=== PATIENT | male | born 1955 | race Caucasian/White ===

== ENCOUNTER 2019-05-28 15:08 | Inpatient (IN) | payer MEDICARE ==
[~2019-05-28] VITALS: Ht 175.2 cm; Wt 82.1 kg
[~2019-05-28 15:08] MED LIST: DULOXETINE HCL60 MG PO; LISINOPRIL40 MG PO; METOPROLOL SUCC25 M2 PO
[2019-05-28 15:23] VITALS: BP 133/84
[2019-05-28 16:19] VITALS: BP 133/84
--- NOTE | 2019-05-28 16:50 | NUR ---
SPOKE WITH DR. BOWDEN AT [phone] RE: CONSULT NEEDED FOR MEDICAL MANAGEMENT PER DR. BOWDEN PLACE CONSULT UNDER DR. FLAHERTY
--- NOTE | 2019-05-28 16:52 | NUR ---
VONDA DWYER a 63 year old M admitted via wheel chair from the EMERGENCY ROOM as a voluntary admission. Arrived on unit at 1520 ALLERGIES: NKA . Vital signs are: [id number] 133/84. The client signed the following forms with stated understanding: Authorization For The Release of Medical Information, Clothing List, Consent to Voluntary Admission and Hospitalization, Consent and Release Forms/Receipt of Rights, Acknowledgement of Advance Directive Information, Behavioral Health Consent Form, and Informed Consent of Medications. Admitted under the services of VONDA Mcdonough MD. A search was conducted and hazardous articles were removed. Client was oriented to the unit. KAREN DALAL PT ALERT TO PERSON, PLACE, TIME AND SITUATION. PT CALM, MOOD IS DEPRESSED. PT SUICIDE SCORE IS 78. DR BEAVER UPDATED AT 1618, ORDERS RECEIVED TO MAINTAIN Q15 MIN SAFETY CHECKS. NO HALLUCINATIONS OR DELUSIONS NOTED. PT AMBULATORY THROUGHOUT UNIT, GAIT STEADY. PT CONTINENT OF BOWEL AND BLADDER. PT DENIES ANY WOUNDS OR OPEN AREAS.
[2019-05-28 20:00] VITALS: BP 151/89
--- NOTE | 2019-05-28 20:47 | NUR ---
EVENING/RELAXTION/DISCUSSION PT ATTENDED AND PARTICIPATED IN ALL ACTIVITYS. PT PLEASANT AND ON TASK OPENING UP WITH PEERS AND STAFF. PT DID NTO EXPRESS ANY S.I. AT THIS TIME AND WILL CONTINUE TO ATTEND AND PARTICIPATE IN FUTURE GROUP SESSIONS.
--- NOTE | 2019-05-28 23:33 | NUR ---
24 HR chart check completed.
--- NOTE | 2019-05-29 00:03 | NUR ---
PT HAD INCREASED ANXIETY. SITTING IN HIS ROOM & CRYING. MEDICATED WITH ATIVAN 1MG PO @ 2152.
--- NOTE | 2019-05-29 05:15 | NUR ---
PT HAS SLEPT PAST 2214
[2019-05-29 06:39] LABS: BASO # 0.1 10*3/uL (0.0-0.1); BASO % 1.1 % (0.0-1.0); EOS # 0.2 10*3/uL (0.0-0.4); EOS % 3.1 % (1.0-4.0); HEMATOCRIT 44.8 % (42.0-52.0); HEMOGLOBIN 14.8 g/dl (14.0-18.0); LYMPH # 2.1 10*3/uL (1.3-4.4); LYMPH % 33.5 % (27.0-41.0); MEAN CELL VOLUME 93.7 fl (80.0-94.0); MEAN PLATELET VOLUME 9.9 fl (9.6-12.3); MONO # 0.6 10*3/uL (0.1-1.0); MONO % 9.4 % (3.0-9.0); NEUT # 3.3 10*3/uL (2.3-7.9); NEUT % 52.6 % (47.0-73.0); PLATELET COUNT AUTOMATED 236 10*3/uL (130-400); RED BLOOD COUNT 4.78 10*6/uL (4.50-5.90); RED CELL DISTRI WIDTH 12.7 % (0-14.5); WHITE BLOOD COUNT 6.2 10*3/uL (4.8-10.8)
[2019-05-29 06:58] LABS: ALBUMIN 3.5 gm/dl (3.1-4.5); ALKALINE PHOSPHATASE 95 U/L (45-117); BUN 12 mg/dl (7-24); CHLORIDE 104 mmol/L (98-107); CHOLESTEROL 198 mg/dL (<200); CREATININE 1.03 mg/dL (0.70-1.30); HDL CHOLESTEROL 34 mg/dl (40-60); LDL CHOLESTEROL 135 mg/dL (9-159); POTASSIUM 4.5 mmol/L (3.5-5.1); SGOT/AST 14 IU/L (3-35); SGPT/ALT 24 U/L (12-78); SODIUM 138 mmol/L (136-145); TOTAL PROTEIN 6.9 gm/dL (6.4-8.2); TRIGLYCERIDES 144 mg/dl (<150); VLDL CHOLESTEROL 29 mg/dL (6-40)
[2019-05-29 08:07] LABS: VITAMIN D, 25-HYDROXY 32.9 ng/mL (30-100)
--- NOTE | 2019-05-29 08:30 | NUR ---
Treatment Plan meeting with Dr. Odonnell, RN, AT, SW and Autoglazier. Plan for discharge Next week. Pt. will return home.
[2019-05-29 09:00] VITALS: BP 134/74
--- NOTE | 2019-05-29 15:05 | NUR ---
While meeting with pt to complete assessment, pt stated that he continues to have suicidal thoughts. Pt admits to struggling with thoughts of self-harm for approximately one week before reaching out for help. Pt shared that his plan is for someone other than family to find his body because pt believes that his family could heal from his suicide if they were not the ones to find him. Pt's plan is to cut his wrists. However, pt stated that he would not attempt suicide while in [facility]. Pt reports that he is motivated for treatment and knows that his thoughts of suicide are "just not right." Discussed pt's current life stressors. Validated pt and provided support.
--- NOTE | 2019-05-29 15:40 | NUR ---
PM GROUP/TEAR BOTTLES PT WAS LATE TO GROUP DUE TO A MEETING WITH MINNA. PT CHOSE NOT TO PARTICIPATE IN THE TEAR BOTTLE PROJECT AND JUST WANTED TO LISTEN TO THE MUSIC. PT STAYED A WHILE AND THEN GOT UP AND LEFT GROUP. PT DID NOT RETURN
[2019-05-29 20:02] VITALS: BP 125/72
--- NOTE | 2019-05-29 22:00 | NUR ---
PT WAS IN THE DINING ROOM & C/O CHEST PAIN & TIGHT SHOULDERS. RATED PAIN 8/10. ALSO C/O FEELING DIZZY & NAUSEATED. NO DIAPHORESIS. VITAL SIGNS STABLE. CALLED DR KHAN & HE DID COME & SEE PT & PLACED ORDERS. . PT MEDICATED WITH ATIVAN 1 MG PO @ 2014 & THIS WAS EFFECTIVE TO CALM HIM DOWN. CONTINUE TO MONITOR PT. DR KHAN STATED THAT HE WILL REVIEW HIS LABS, EKG & TROPONIN LEVELS & WILL NOTIFY OF FURTHER ORDERS IF NEEDED.
--- NOTE | 2019-05-29 22:07 | NUR ---
24 HR chart check completed.
--- NOTE | 2019-05-30 05:42 | NUR ---
ATIVAN HAS BEEN EFFECTIVE & PT HAS SLEPT PAST 2200 WITH 1 BRIEF AWAKENING TO GO TO THE BATHROOM
[2019-05-30 07:06] LABS: BASO # 0.1 10*3/uL (0.0-0.1); BASO % 0.9 % (0.0-1.0); EOS # 0.2 10*3/uL (0.0-0.4); EOS % 2.6 % (1.0-4.0); HEMATOCRIT 44.3 % (42.0-52.0); HEMOGLOBIN 14.7 g/dl (14.0-18.0); LYMPH % 28.2 % (27.0-41.0); MEAN CELL VOLUME 92.7 fl (80.0-94.0); MEAN CORPUSCULAR HGB 30.8 pg (27.0-31.0); MEAN CORPUSCULAR HGB CONC 33.2 g/dl (33.0-37.0); MEAN PLATELET VOLUME 9.9 fl (9.6-12.3); MONO # 0.6 10*3/uL (0.1-1.0); MONO % 8.9 % (3.0-9.0); NEUT # 4.2 10*3/uL (2.3-7.9); NEUT % 59.1 % (47.0-73.0); PLATELET COUNT AUTOMATED 254 10*3/uL (130-400); RED BLOOD COUNT 4.78 10*6/uL (4.50-5.90); RED CELL DISTRI WIDTH 12.6 % (0-14.5); WHITE BLOOD COUNT 7.1 10*3/uL (4.8-10.8)
[2019-05-30 07:29] LABS: BUN 15 mg/dl (7-24); CHLORIDE 104 mmol/L (98-107); CREATININE 1.11 mg/dL (0.70-1.30); POTASSIUM 4.3 mmol/L (3.5-5.1); SODIUM 139 mmol/L (136-145)
[2019-05-30 08:00] VITALS: BP 114/89
--- NOTE | 2019-05-30 08:45 | NUR ---
Patient resting quietly with no c/o discomfort. Respirations easy and regular. Vital signs stable. No overt distress. CISCO DUNCAN
--- NOTE | 2019-05-30 10:30 | NUR ---
Dr. Odonnell met with Nursing Staff this a.m. for Treatment plan meeting. Plan for discharge Monday with Pt. to return home at discharge.
--- NOTE | 2019-05-30 11:59 | NUR ---
AM GROUP/EXERCISE PT WAS PRESENT FOR MORNING GROUP THERAPY AND STARTED DOING THE EXERCISES WITH THE GROUP BUT STOPPED AND STARED OUT THE WINDOW UNTIL THE SW CAME AND TOOK PT FROM THE ROOM. PT EXPRESSED NO SUICIDAL IDEATIONS WHILE IN GROUP
--- NOTE | 2019-05-30 13:40 | NUR ---
Individual counseling with pt this AM. Pt states that he just isn't feeling well since experiencing a panic attack last evening. Pt denies any hx of panic/anxiety attacks. Pt continues to voice suicidal ideations. He stated that he actually feels worse now than before he came to [facility]. Pt stated. "If there was a way here last night that I could have ended it, I wouldn't be here today." Allowed pt to express his emotions further. Discussed that even in one's darkest times, there is something to be thankful for. Discussed the power of thankfulness/gratitude. Provided pt with a hand-out and with gratitude journal sheets. Explained about the use of a gratitude journal and encouraged pt to try this. Pt voiced that he would but then added that he finds it hard to find anything to be thankful for. Validated pt's comment and encouraged him again to spend time thinking about who/what he is thankful for even if it an insignificant thing. Pt spoke further about his suicidal thoughts. He also shared about a dream that he had where he was standing at the end of a casket and his body was in the casket. There were people sitting there as if at his and there were people standing further away that pt stated were already . When asked if pt had any emotions about this dream, pt stated, "Peace. I just felt peace." Pt stated that he has thought this through, and he knows that everyone that he loves would eventually heal from his - should he commit suicide. Gently challenged pt's thought about this, but pt continues to believe that his family will be fine without him. Discussed the "nevers" -never holding his again, never seeing his son again, etc. Pt stated, "The nevers are not strong enough to keep me here." Returned conversation to gratitude. Asked pt if he could verbalize anything that he is thankful for at this moment. Pt stated, "My , my son, and my [id number]." Reiterated to pt that he spend time thinking of anything else that he is grateful for and to write them on the journal pages. Educated pt on the process of recovering from depression. Pt also spoke of preparing to visit with his and [id number] and that pt had to "put on his face." Pt explained that he cannot show his family how he is truly feeling. Asked pt what would happen if pt didn't put on his face but allowed his family to see pt as he truly is at this time. Pt stated, "No, that will never happen. They couldn't handle this." Pt was pleasant throughout session. Pt was also tearful through most of the meeting. Pt commented that he never cries but is finding it difficult to stop crying now. Pt continues to voice suicidal ideations but states that he knows he can't take his life while in the [facility]. Pt's affect is flat. He is voicing hopelessness. However, he does want to feel better. Pt stated, "This is going to end one of two ways. I'm either going to be able to handle life again, or I'm ending it."
--- NOTE | 2019-05-30 15:38 | NUR ---
PM GROUP/PAINTING AND CARDS PT ATTENDED AND PARTICIPATED IN ALL GROUP ACTIVITIES. PT EXPRESSED NO SUICIDAL IDEATIONS WHILE IN GROUP.
[2019-05-30 20:00] VITALS: BP 128/76
--- NOTE | 2019-05-30 21:00 | NUR ---
P-ISOLATVE, WITHDRAWN I-REDIRECTION WITH 1:1 THERAPEUTIC INTERVENTION. EDUCATE AND ENCOURGE MEDICATION COMPLIANCE R-PATIENT ISOLATIVE TO ROOM THROUGHOUT SHIFT. PATIENT WITH MINIMAL INTERACTION WITH PEERS. MEDICATION COMPLIANT P-CONTINUE TO ENCOURAGE MEDICATION COMPLIANCE, ENCOURAGE GROUP THERAPY WHILE AWAKE
[2019-05-31 08:00] VITALS: BP 107/74
--- NOTE | 2019-05-31 08:38 | NUR ---
Patient resting quietly with no c/o discomfort. Respirations easy and regular. Vital signs stable. No overt distress. CISCO DUNCAN
--- NOTE | 2019-05-31 11:17 | NUR ---
DR. PIERCE ON FLOOR TO ASSESS PT, UPDATE PROVIDED.
--- NOTE | 2019-05-31 11:47 | NUR ---
AM GROUP/LEISURE INTERESTS PT ATTENDED MORNING GROUP THERAPY AND PARTICIPATED BY PLAYING CARDS WITH THE NURSING STUDENTS. PT EXPRESSED NO SUICIDAL IDEATIONS WHILE IN GROUP
--- NOTE | 2019-05-31 11:58 | NUR ---
Treatment Plan meeting with Dr. Odonnell, RN, AT, SW and Package Delivery Room Service Runner. Plan for discharge Monday. Pt. will return home.
--- NOTE | 2019-05-31 15:35 | NUR ---
Individual counseling with patient this afternoon. Pt confirmed that he continues to feel suicidal and that he is feeling hopeless. When asked, pt stated that he has spent time thinking of things that he should be grateful for but is struggling to find anything. Explored ways in which pt coped with depression and past suicidal ideations. Pt spoke of feeling totally empty. In speaking with pt, this telegraphic typewriter operator chief has heard pt speak of God and gian, although pt denies spirituality and a gian. Presented topic of spirituality to patient and patient was willing to explore this further. Pt shared further about his previous searching. Discussed the need for pt to find that one thing within himself to hold on to. Pt voiced that he is wanting to find something that will make him want to live, but at this time there is nothing. Empathized with pt and offered appreciation to him for his honesty. Pt also stated that he has not been truthful with Dr Odonnell - in that he has not been sleeping well nor does he want to eat. Pt is aware that this telegraphic typewriter operator chief will be sharing this information with Dr Odonnell. Pt continues to voice suicidal ideations. His affect is flat. Pt continues to be tearful. He is not future-oriented beyond the plan to take his life.
--- NOTE | 2019-05-31 18:29 | NUR ---
PT TEARFUL. PT ASSESSED FOR MOOD, SI, INTENT OR PLAN. PROVIDED EMOTIONAL SUPPORT, 1:1. PT MOOD IS DEPRESSED. PT STATES HE DOES NOT FEEL ANY BETTER THAN YESTERDAY, STATES HE REMAINS SUICIDAL, PT HAS NO PLAN OR INTENT TO DO SO AT THIS TIME. VERBALLY CONTRACTS FOR SAFETY. PT PROVIDED WITH EMOTIONAL SUPPORT. OBSERVED SITTING ON BED CRYING WITH BACK TO DOOR. WILL CONTINUE TO ASSESS PT FOR SI, INTENT AND PLAN. WILL CONTINUE TO ENCOURAGE PT VERBALIZE NEGATIVE THOUGHT PROCESSES. PROVIDE EMOTIONAL SUPPORT AND 1:1 APPROPRIATE. Q15 MIN MONITORING.
[2019-05-31 19:30] VITALS: BP 115/62
--- NOTE | 2019-05-31 23:55 | NUR ---
P-ISOLATVE, WITHDRAWN I-REDIRECTION WITH 1:1 THERAPEUTIC INTERVENTION. EDUCATE AND ENCOURGE MEDICATION COMPLIANCE R-PATIENT ISOLATIVE TO ROOM THROUGHOUT SHIFT. PATIENT WITH MINIMAL INTERACTION WITH PEERS. MEDICATION COMPLIANT. PATIENT WITH REQUEST FOR TYLENOL 650MG FOR COMPLAINT OF BACK PAIN. MEDICATION WITH EFFECTIVE RESULTS AT THIS TIME P-CONTINUE TO ENCOURAGE MEDICATION COMPLIANCE, ENCOURAGE GROUP THERAPY WHILE AWAKE
--- NOTE | 2019-06-01 01:18 | NUR ---
24 HR chart check completed.
--- NOTE | 2019-06-01 06:52 | NUR ---
PATIENT SLEPT 8 HOURS OF UNINTERRUPTED SLEEP THROUGHOUT SHIFT. Q 15 MINUTE CHECKS MAINTAINED
[2019-06-01 08:31] VITALS: BP 118/72
--- NOTE | 2019-06-01 15:59 | NUR ---
PM/GAMES/MUSIC PT ATTENDED AND PARTICIPATED IN GROUP BY WORKING ON A COPING WORKSHEET. PT DID NOT EXPRESS ANY S.I. AT THIS TIME AN DIWLL CONTINUE TO ATTEND AN DPARTICIPATE IN FUTURE GROUP SESSIONS.
--- NOTE | 2019-06-01 18:24 | NUR ---
PT MORE INTERACTIVE THIS SHIFT. PT OBSERVED TO INTERACT WITH PEERS T/O A SIGNIFICANT PORTION OF THIS SHIFT. PT STATED HE IS OKAY, ADMITS TO CONTINUED SI. VERBALLY CONTRACTS FOR SAFETY. Q 15 MIN MONITORING.
[2019-06-01 19:51] VITALS: BP 136/75
--- NOTE | 2019-06-01 23:56 | NUR ---
P-ISOLATVE, WITHDRAWN, SUICIDAL IDEATIONS I-REDIRECTION WITH 1:1 THERAPEUTIC INTERVENTION. EDUCATE AND ENCOURGE MEDICATION COMPLIANCE R-PATIENT ISOLATIVE TO ROOM THROUGHOUT SHIFT. PATIENT WITH MINIMAL INTERACTION WITH PEERS. MEDICATION COMPLIANT. PATIENT TALKED TO THIS NURSE AND STATING "I AM NOT READY TO GO HOME". PATIENT ADMITS TO HAVING SUICIDAL IDEATIONS WITH NO PLAN AT THIS TIME. PATIENT STATES "I HAVE BEEN WRITING DOWN HOW I FEEL AND I HAVE OPENED UP TO THE STAFF HERE MORE IN THE LAST COUPLE OF DAYS THAN I HAVE WITH ANYONE IN MY LIFE". PATIENT SHARED WRITTEN FEELINGS WITH NURSE TO READ. PATIENT TEARUL AT TIMES DURING THIS INTERACTION. PATIENT STATING "MY [id number] CAME TO VISIT AND STARTED TALKING ABOUT THE BUSINESS AND I IMMEDIATELY CLOSED UP" THIS NURSE TALKED TO PATIENT ABOUT SUPPORT SYSTEM IN THE COMMUNITY. PATIENT STATES "THIS IS ALL HARD FOR MY AND SON TO UNDERSTAND. MY HAS ALZHEIMER'S AND MY SON IS ALONE BECAUSE HIS MOTHER . MUCH I NEED TO BE WITH THEM, I JUST CAN'T RIGHT NOW. I HAVE EVEN SEEN A COUSELOR IN [place] FOR A MONTH NOW AND SHE PUT ME ON MEDICATION, BUT IT'S NOT WORKING. I'M JUST EMBARRASSED AND ASHAMED". PATIENT COMPLAINT OF FEELING SHAKY ALL OVER. THIS NURSE MEDICATED WITH PATIENT WITH ATIVAN 1MG PO. THE MEDICATION WITH EFFECTIVE RESULTS AT THIS TIME. PATIENT PROVIDED FLUIDS AND NOURISHMENT AT HS. MEDICATION WITH EFFECTIVE RESULTS AT THIS TIME. P-CONTINUE TO ENCOURAGE MEDICATION COMPLIANCE, ENCOURAGE GROUP THERAPY WHILE AWAKE
--- NOTE | 2019-06-02 00:37 | NUR ---
24 HR chart check completed.
--- NOTE | 2019-06-02 06:26 | NUR ---
PATIENT SLEPT 6 HOURS OF INTERRUPTED SLEEP THROUGHOUT SHIFT. Q 15 MINUTE CHECKS MAINTAINED
[2019-06-02 08:09] VITALS: BP 108/70
--- NOTE | 2019-06-02 11:00 | NUR ---
DR. PIERCE ON UNIT TO ASSESS PATIENT.
--- NOTE | 2019-06-02 12:13 | NUR ---
AM/BRAIN GAMES/MUSIC PT ATTENDED AND PARTICIPATED IN ALL GROUP ACTIVITYS. PT PLEASANT AN DON TASK WITH NO S.I. EXPRESSED AT THIS TIME. PT WILL CONTINUE TO ATTEND AN DPARTICIPATE IN FUTURE GROUP SESSIONS.
--- NOTE | 2019-06-02 16:03 | NUR ---
PT ALERT TO PERSON, PLACE, TIME AND SITUATION. PT MED COMPLIANT WITHOUT DIFFICULTY, MED EDUCATION PROVIDED. PT CALM, MOOD IS DEPRESSED. PT STATES "I JUST FEEL LIKE I CAN'T GO ON ANYMORE." PT STATES HE DOES HAVE SUICIDAL THOUGHTS, WITH A PLAN TO CUT HIS WRISTS. PT VERBALLY CONTRACTS FOR SAFETY WHILE HERE IN THE HOSPITAL, STATES TO THIS NURSE "I WOULD GO HOME AND FINISH THE WORK I HAVE WHICH WOULD TAKE ABOUT 3 WEEKS THEN I WOULD KILL MYSELF". PT STATES TO STAFF THAT HE HAS A POOR APPETITIE BUT IS EATING IN ORDER TO BE DISCHARGED. PT REPORTS HE DID SLEEP BETTER LAST NIGHT THAN HE HAS PREVIOUS NIGHTS. THIS NURSE PROVIDED EMOTIONAL SUPPORT AND 1:1 FOR PT TO VOICE FEELINGS, ENCOURAGED PT TO OPEN UP TO STAFF RE: HIS DEPRESSION, PREVIOUS LOSSES IN LIFE AND SUICIDAL THOUGHTS. PT OPEN WITH THIS NURSE DISCUSSING ALL. JEREMY MCGEE ADMINISTRATIVE SUPERVISOR ON UNIT AT 0900, UPDATE PROVIDED ON PT AND HIS SUICIDAL THOUGHTS, PER JEREMY PT TO REMAIN ON Q15 MIN SAFETY CHECKS. PT IN FOR VISIT DURING AFTERNOON VISITING HOURS, PT OBSERVED TO BE SMILING AND LAUGHING WITH HIS . PT ISOLATIVE TO SELF AT TIMES, INTERACTIVE WITH STAFF AND PEERS AT OTHERS. PT AMBUALTORY THROUGOUT UNIT, GAIT STEADY. PT CONTINENT OF BOWEL AND BLADDER. PLAN IS TO MAINTAIN Q15 MIN SAFETY CHECKS, ENCOURAGE MED COMPLIANCE AND PROVIDE MED EDUCATION, ENCOURAGE GROUP PARTICIPATION AND SOCIALIZATION, CONTINUE TO ENCOURAGE PT TO VOICE SUICIDAL THOUGHTS TO STAFF AND VERBALLY CONTRACT FOR SAFETY.
--- NOTE | 2019-06-02 16:16 | NUR ---
Shift chart check completed.
[2019-06-02 19:32] VITALS: BP 146/80
--- NOTE | 2019-06-02 22:44 | NUR ---
P--HOPELESS/HELPLESS/ SUICIDAL IDEAS. I--1:1 CONVERSATION. ENCOURAGED CLIENT T BE OPEN AND FULL DISCLOSURE ABOUT ISSUES THAT HAVE HAPPENED TO CAUSE ISSUES. PROVIDE EMOTIONAL SUPPORT AND BE AVAILABLE TO LISTEN. MEDICATE PER ORDERS AND PRN. CONTRACTED FOR SAFETY. R--I JUST DON'T KNOW WHAT CAUSED IT THIS TIME. I KNOW I HAVEN'T DEVULGED EVERYTHING IN MY PAST, I WROTE SOME OF IT AND GAVE IT TO YOU BEFORE I CHICKEN OUT. I WON'T DO ANYTHING HERE. MAYBE THERE WAS A SPARK THAT I WANTED HELP, I DOUBT IT BUT MAYBE. P--GIVE JOURNAL TO YING PER HIS REQUESTS. BE AVAILABLE TO TALK. MONITOR FOR CHANGES IN MOOD AND OR BEHAVIOR.
--- NOTE | 2019-06-03 | NUR ---
MOTRIN EFFECTIVE. CLIENT SLEEPING
--- NOTE | 2019-06-03 04:26 | NUR ---
24 HR chart check completed.
--- NOTE | 2019-06-03 05:56 | NUR ---
HAS SLEPT WELL ALL NIGHT. SLEPT PAST 2230PM WITH MINIMAL INTERUPTION. PRIOR TO GOING TO BED CLIENT DID SAY HE WASN'T SAFE TO GO HOME YET.
--- NOTE | 2019-06-03 06:04 | NUR ---
IN SHOWER AT THIS TIME
[2019-06-03 08:09] VITALS: BP 109/77
--- NOTE | 2019-06-03 11:38 | NUR ---
AM GROUP PT ATTENDED MORNING GROUP THERAPY AND PARTICIPATED BY BUILDING A BIRDHOUSE AND CUTTING OUT IMAGES TO DECORATE IT WITH. PT EXPRESSED NO SUICIDAL IDEATIONS WHILE IN GROUP. PT WAS BRIGHT, SMILING AND ENGAGED IN CONVERSATION WITH THIS CERAMIC PRODUCTS SALES ENGINEER AND PEERS.
--- NOTE | 2019-06-03 14:42 | NUR ---
PATIENT IS ALERT AND ORIENTED TO PERSON, PLACE, TIME AND SITUATION; ABLE TO VOICE NEEDS. MOOD IS DEPRESSED; HOPELESS/HELPLESS. PATIENT STATED "I SLEPT 6 HRS AND THAT'S GOOD, STILL DEPRESSED" DENIES ANY HALLUCINATIONS, DELUSIONS, HI/SI OR PAIN. INTERACTIVE WITH STAFF AND OTHER PATIENTS. PARTICIPATES IN GROUPS SESSION. DR. VERDE ON UNIT TO ASSESS PATIENT EARLIER TODAY. INDEPENDENT WITH ACTIVITES OF DAILY LIVING, CONTINENT OF BOWEL AND BLADDER. SET UP FOR MEALS, INTAKES ARE GOOD WITH ADEQUATE FLUIDS. (IMPROVED) AMBULATORY WITH STEADY GAIT. MEDICATION COMPLAINT WITH EDUCATION. Q 15 MINUTE SAFETY CHECKS MAINTAINED. CONTINUE TO MONITOR FOR SUICIDAL IDEATIONS; CONTRACT FOR SAFETY AND PROVIDE ONE ON ONE EMOTIONAL SUPPORT NEEDED.
--- NOTE | 2019-06-03 15:43 | NUR ---
PM GROUP PT DID NOT ATTEND AFTERNOON GROUP THERAPY. PT WAS IN A MEETING WITH PSYCHOLOGIST AND MINNA.
--- NOTE | 2019-06-03 17:28 | NUR ---
SPECIMEN COLLECTED FOR STREP SCREEN THROAT CULTURE AND SENT TO LAB.
--- NOTE | 2019-06-03 17:37 | NUR ---
ONE ON ONE WITH PATIENT REGARDING SUICIDAL THOUGHTS: 1) TO CUT SELF WITH A BLADE 2) TO SHOOT SELF WITH A GUN. TALKED WITH PATIENT ON LIFE STRESS THAT IS CAUSING THESE THOUGHT. PATIENT STATE HE WAS ARGUING WITH A CUSTOMER WHO STATED HE WAS GOING TO LJ HIM. ALONG WITH CARE FOR SPOUSE WHO HAS DEMENTIA AND WITH FAMILY AND FREINDS WHO HAVE PAST THAT HE NEVER GREIVED FOR. THE TIME DEALING WITH CUSTOMER WAS AT 4PM. PATIENT IS TEARFUL AND FEELING DEPRESSED. CONTINUED ONE ON ONE TO EXPRESS FEELING/EMOTIONS. PATIENT CONTRACTED FOR SAFETY. DR. BEAVER NOTIFIED AT THIS TIME AND TO CONTINUE 15 MINUTE SAFETY CHECKS.
[2019-06-03 19:31] VITALS: BP 112/72
--- NOTE | 2019-06-03 20:36 | NUR ---
EVENING/LEISURE SKILLS PT ATTENDED AND PARTICIPATED IN GROUP. PT PLEASNAT AND ON TASK WITH NO SUICIDAL IDEATIONS EXPRESSED AT THIS TIME. PT WILL CONTINUE TO ATTEND AND PARTICIPATE IN FUTRUE GROUP SESSIONS.
--- NOTE | 2019-06-03 22:03 | NUR ---
CLIENT ISOLATIVE FROM PEERS. CURRENTLY INVOLVED IN BOOK. SMILING MORE TONIGHT. STATES TODAY WAS OK. CONTRACTED FOR SAFETY. STREP CULTURE GOTTEN AND SENT TO LAB. WILL BE AVAILABLE TO TALK AT ANY TIMES. WILL MONITOR FOR CHANGES IN BEHAVIOR OR MOOD.
--- NOTE | 2019-06-04 02:33 | NUR ---
24 HR chart check completed.
--- NOTE | 2019-06-04 05:50 | NUR ---
SLEPT WELL PAST 2300PM WITH FEW AWAKENINGS. SLEPT APPROX 6.5-7 HOURS
[2019-06-04 07:43] VITALS: BP 130/84
--- NOTE | 2019-06-04 10:50 | NUR ---
PATIENT IN GROUP SESSION, COMPLAINED OF FEELING LIGHT HEAEDED, DIZZY. VITALS: 168/98 MANUAL, 76, 20 RESPIRATIONS,100%RA, 97.6; COMPLAINING OF HAVING CHEST PAIN RADIATING TO LEFT ARM PIT. BLOOD SUGAR 85. PATIENT HAIVNG BLURRED VISION; HAND GRASP STRONG AND EQUAL. DR. EDGAR NOTIFIED.
--- NOTE | 2019-06-04 10:59 | NUR ---
DR. PIERCE ON UNIT TO ASSESS PATIENT, UPDATED ON CONDITION. ASSISTED PATIENT TO ANOTHER CHAIR. PATIENT BECAME DIZZY AND SHAKING. NEW ORDER RECEIVED TO SENT PATIENT TO ER FOR EVALULATION FOR CHEST PAIN.
[2019-06-04] MEDS ORDERED: ARIPIPRAZOLE10 MG PO (11:04)
[2019-06-04] MEDS ORDERED: MIRTAZAPINE15 M2 PO (11:04)
--- NOTE | 2019-06-04 11:05 | NUR ---
CALL PLACED TO PATIENT'S SPOUSE, AWAITING RETURN CALL.
--- NOTE | 2019-06-04 11:08 | NUR ---
DR. BEAVER RETURN CALL, TO CONTINUE CURRENT MEDICATIONS.
--- NOTE | 2019-06-04 11:14 | NUR ---
PATIENT ASSISTED TO WHEELCHAIR. OFF UNIT WITH NURSING STAFF AND SECURITY WITH ALL BELONGING AND DISCHARGE INSTRUCTIONS TO ER.
--- NOTE | 2019-06-04 11:24 | NUR ---
CAITIE, PATIENT'S SPOUSE RETURNED CALL, UPDATED ON CONDITION AND TRANSFER CALL TO ER.
--- NOTE | 2019-06-04 13:49 | NUR ---
Late Entry: Met with patient in the afternoon of 06/03/19 for individual counseling. Pt reported that he is feeling better today than he has since his admission. Pt stated that he continues to contemplate suicide but that it is not ever present in his mind today. Pt shared his journal writing with this STRIPPING CUTTER AND WINDER-S. Discussed pt's emotions linked to his writing. Pt shared that he did reach out to his [id number] today during visitation informing him that pt may need to rely on him for support when pt returns home. This feature writer praised pt for doing this, as pt has difficulty asking for help and had voiced that he did not want to share with his family how he was truly feeling. Discussed pt's childhood further and discussed the role that pt was forced to be in as a child. Pt spoke of not liking himself. Discussed this further and assisted pt in recognizing that his childhood experiences set pt up for these thoughts of self. Discussed healing from childhood hurts as a process. Pt confirmed that writing in a journal is helpful to him. Pt commented that he is shocked at the information that he wrote about and that he is able to share these thoughts which have never been shared before. Pt also received a visit today from a friend, who unbeknownst to pt, has a hx of SI which required inpt psych. This friend offered to also support pt when he returns to the community. Confirmed with pt that he will continue to use his gratitude journal and narrative expressive journaling. This feature writer also requested that pt make a list of all of pt's positives and anything that he can find that he likes about himself. Pt admitted that this will be hard for him to do but he will try. Encouraged pt to spend time on this. Pt continues to voice suicidal ideations. However, he does admit that today they are not ever present. Pt displays a blunt affect. He is beginning to be future-oriented as he makes plans for support from his [id number]-[id number] at discharge. Pt is actively seeking treatment and willing to work on assignments.
--- NOTE | 2019-06-04 14:13 | NUR ---
Met with pt this AM prior to pt's breakfast. Pt stated that he was not feeling well. When asked for particulars, pt stated that he feels like he is having electrical shocks in his head, is nauseated, and is just not feeling good. Empathized with pt and informed him that this fiction and nonfiction writer prose would inform Dr Odonnell of this and that Dr Odonnell should be seeing pt shortly. After meeting with pt, this SIDEROGRAPHER-S spoke to Dr Odonnell and provided pt's description of how pt was feeling.
--- NOTE | 2019-06-04 14:17 | NUR ---
Met with pt directly before pt was discharged to the [facility] ER. Pt was crying stating, "I should have just ended it days ago. I wouldn't be going through this now. I just want to end it." Emotional support provided.
[2019-06-05] MEDS ORDERED: VITAMIN D22000 UNIT PO (12:02)
[2019-06-05] MEDS ORDERED: PHARMASSURE FO0.4 MG PO (12:02)
== END 2019-06-04 11:14 | disposition other institution (70) | DRG 885 ==
LOC: 3N 15:08
PROVIDERS: Internal Medicine; ADMIT Psychiatry & Neurology Psychiatry
DX: F33.2 Major depressive disorder, recurrent severe without psychotic features (principal); R45.851 Suicidal ideations; F34.1 Dysthymic disorder; R00.1 Bradycardia, unspecified; I10 Essential (primary) hypertension; E53.8 Deficiency of other specified B group vitamins; E66.3 Overweight; Z91.5 Personal history of self-harm; Z90.49 Acquired absence of other specified parts of digestive tract; Z82.49 Family history of ischemic heart disease and other diseases of the circulatory system; Z79.899 Other long term (current) drug therapy; Z68.26 Body mass index [BMI] 26.0-26.9, adult

== ENCOUNTER 2019-06-04 11:19 | Observation (INO) | payer MEDICARE ==
[~2019-06-04] VITALS: Ht 175.2 cm; Wt 80.7 kg
[2019-06-04] VITALS (12 sets, daily range): BP systolic 114–142; BP diastolic 70–87
--- NOTE | ~2019-06-04 | EKG ---
[place], [place] ELECTROCARDIOGRAM REPORT NAME: VONDA DWYER UNIT #: [id number] ROOM: 519 DOCTOR: JAMAAL DRAFT REPORT BIRTHDATE: [birth year] [facility] Test Date: 2019-06-04 Test Time: 11:23:07 Pat Name: VONDA DWYER Department: Room: 519 Gender: M Claim Manager: : 1955 Requested By: VINNY YAN Order Number: [id number] Reading MD: Jaret Montes MD Measurements Intervals [place] Rate: 75 P: 61 [place]: 157 QRS: -34 QRSD: 88 T: 50 QT: 374 QTc: 418 Interpretive Statements Sinus rhythm Ventricular premature complex Left axis deviation Abnormal R-wave progression, early transition Compared to ECG 05/30/2019 02:12:30 Ventricular premature complex(es) now present Left-axis deviation now present Right ventricular hypertrophy no longer present Electronically Signed On 06-10-2019 7:15:56 PDT by Jaret Montes MD CM:EKGRPT:ELECTROCARDIOGRAM REPORT [id number] VINNY HINTON DRAFT REPORT VINNY YAN M.D.
--- NOTE | ~2019-06-04 | EKG ---
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
--- NOTE | ~2019-06-04 | EKG ---
[place], [place] ELECTROCARDIOGRAM REPORT NAME: VONDA DWYER UNIT #: [id number] ROOM: 519 DOCTOR: JAMAAL DRAFT REPORT BIRTHDATE: [birth year] [facility] Test Date: 2019-06-04 Test Time: 14:46:36 Pat Name: VONDA DWYER Department: Room: [facility] Gender: M Flyer Repairer: DAVID : 1955 Requested By: VINNY YAN Order Number: [id number] Reading MD: Jaret Montes MD Measurements Intervals [place] Rate: 60 P: 44 AL: 164 QRS: -23 QRSD: 93 T: 43 QT: 410 QTc: 410 Interpretive Statements Sinus rhythm Borderline left axis deviation RSR' in V1 or V2, right VCD or RVH Minimal ST elevation, anterior leads Compared to ECG 05/30/2019 02:12:30 ST (T wave) deviation now present Electronically Signed On 06-10-2019 7:16:23 PDT by Jaret Montes MD CM:EKGRPT:ELECTROCARDIOGRAM REPORT [id number] VINNY HINTON DRAFT REPORT VINNY YAN M.D.
--- NOTE | ~2019-06-04 | CON ---
[place], [place] REPORT OF CONSULTATION NAME: VONDA DWYER UNIT #: [id number] ROOM: 519 DOCTOR: VONDA BEAVER MD BIRTHDATE: [birth year] DOS: 06/05/2019 PSYCHIATRIC CONSULT CHIEF COMPLAINT: "That one pill they gave me really, really helped me." HISTORY OF PRESENT ILLNESS: This is a 63-year-old white male who was initially admitted to the U due to increased depression with suicidal thoughts and a plan. The patient was placed on Remeron 15 mg at bedtime and the dose was gradually increased to 45 mg at bedtime. This was subsequently augmented with Abilify 5 mg a day and the dose was increased to 10 mg a day. The patient ended up having chest pain and feeling very lightheaded and dizzy and ended up going to ICU for precaution. While in the ICU, he was given an Ativan and he stated that he had almost instantaneous relief and felt the best he had for some time. The patient is also happy that he did not have an ongoing cardiac issue. He voices still depressed symptoms with suicidal thoughts in hopes to be able to come back to the U to further stabilize his mood before returning home. MENTAL STATUS: He is alert and oriented to person, place and time. Mood does seem to be trending towards euthymia. He did report he had his best night sleep ever with the current medication regimen. He continues to endorse neurovegetative symptoms including fleeting suicidal thoughts. He does not endorse any symptoms of carlitos, hypomania or psychosis and his memory is relatively fully intact. DIAGNOSES: Major depression, recurrent, severe; dysthymic disorder and panic disorder. PLAN: Given the fact that he had almost instantaneous relief with the Ativan p.r.n., I will start him on Ativan 0.5 mg t.i.d., well maintaining Remeron 22.5 mg at bedtime and Abilify 10 mg at bedtime. When he is medically stable, I would be happy to readmit to the [facility] for further crisis stabilization and intervention returning home when stable. VONDA BEAVER MD CM:CONSTR:REPORT OF CONSULTATION 0922 06/06/19 0120 interface
[~2019-06-04 11:19] MED LIST changes: +ARIPIPRAZOLE10 MG PO; +MIRTAZAPINE15 M2 PO
[2019-06-04 11:47] LABS: BASO # 0.1 10*3/uL (0.0-0.1); BASO % 0.7 % (0.0-1.0); EOS # 0.1 10*3/uL (0.0-0.4); EOS % 1.7 % (1.0-4.0); HEMOGLOBIN 14.8 g/dl (14.0-18.0); LYMPH # 2.3 10*3/uL (1.3-4.4); LYMPH % 33.5 % (27.0-41.0); MEAN CELL VOLUME 90.7 fl (80.0-94.0); MEAN CORPUSCULAR HGB 31.2 pg (27.0-31.0); MEAN CORPUSCULAR HGB CONC 34.4 g/dl (33.0-37.0); MONO # 0.5 10*3/uL (0.1-1.0); MONO % 7.5 % (3.0-9.0); NEUT # 3.9 10*3/uL (2.3-7.9); NEUT % 56.5 % (47.0-73.0); PLATELET COUNT AUTOMATED 258 10*3/uL (130-400); RED BLOOD COUNT 4.74 10*6/uL (4.50-5.90); RED CELL DISTRI WIDTH 12.8 % (0-14.5)
[2019-06-04 11:58] LABS: ACT PARTIAL THROMBO TIME 26.6 SECONDS (20.0-32.1)
[2019-06-04 12:04] LABS: ALBUMIN 3.6 gm/dl (3.1-4.5); BUN 9 mg/dl (7-24); CHLORIDE 106 mmol/L (98-107); CREATININE 1.18 mg/dL (0.70-1.30); POTASSIUM 3.8 mmol/L (3.5-5.1); SGOT/AST 13 IU/L (3-35); SGPT/ALT 25 U/L (12-78); SODIUM 137 mmol/L (136-145); TOTAL PROTEIN 7.2 gm/dL (6.4-8.2)
[2019-06-04 12:07] LABS: ALKALINE PHOSPHATASE 101 U/L (45-117)
[2019-06-04 12:11] LABS: TROPONIN I < 0.015 ng/ml (<0.045)
--- NOTE | 2019-06-04 12:52 | NUR ---
PT IS PAIN FREE AT THIS TIME. PT GIVEN URINAL PER REQEUST. PT INSTRUCTED TO CALL FOR ASSISTANCE.
--- NOTE | 2019-06-04 18:34 | NUR ---
A 63, admitted to [facility], under the services of EREN Silva DO with a diagnosis of CHEST PAIN. Chief complaint is CHEST PAIN. Patient arrived via bed from ER. Monitor applied. Initial assessment completed. Vital signs taken and recorded. EREN SILVA DO notified of admission to the unit. Orders received. See assessment for past medical history, medications and allergies. Patient and/or family oriented to unit. [facility] visitation policy reviewed. Clothing/patient valuable form completed. INDY MOSS
--- NOTE | 2019-06-04 20:04 | NUR ---
DR. KHAN NOTIFIED THAT PATIENT'S MED REQ IS UP TO DATE.
[2019-06-05] VITALS: BP 136/80
[2019-06-05 06:48] LABS: BASO # 0.1 10*3/uL (0.0-0.1); BASO % 0.8 % (0.0-1.0); EOS # 0.2 10*3/uL (0.0-0.4); EOS % 2.5 % (1.0-4.0); HEMATOCRIT 41.9 % (42.0-52.0); HEMOGLOBIN 14.1 g/dl (14.0-18.0); LYMPH % 32.8 % (27.0-41.0); MEAN CELL VOLUME 92.9 fl (80.0-94.0); MEAN CORPUSCULAR HGB 31.3 pg (27.0-31.0); MEAN CORPUSCULAR HGB CONC 33.7 g/dl (33.0-37.0); MEAN PLATELET VOLUME 10.1 fl (9.6-12.3); MONO # 0.5 10*3/uL (0.1-1.0); MONO % 8.7 % (3.0-9.0); NEUT # 3.3 10*3/uL (2.3-7.9); NEUT % 54.9 % (47.0-73.0); PLATELET COUNT AUTOMATED 228 10*3/uL (130-400); RED BLOOD COUNT 4.51 10*6/uL (4.50-5.90); RED CELL DISTRI WIDTH 12.8 % (0-14.5)
[2019-06-05 06:50] LABS: ACT PARTIAL THROMBO TIME 26.3 SECONDS (20.0-32.1)
[2019-06-05 07:26] LABS: CHLORIDE 109 mmol/L (98-107); POTASSIUM 4.4 mmol/L (3.5-5.1); SODIUM 141 mmol/L (136-145)
[2019-06-05 07:42] LABS: BUN 11 mg/dl (7-24); CHOLESTEROL 151 mg/dL (<200); CREATININE 1.05 mg/dL (0.70-1.30); FREE T4 0.88 ng/dl (0.76-1.46); HDL CHOLESTEROL 29 mg/dl (40-60); LDL CHOLESTEROL 85 mg/dL (9-159); PHOSPHOROUS 2.9 mg/dL (2.5-4.9); TRIGLYCERIDES 185 mg/dl (<150); VLDL CHOLESTEROL 37 mg/dL (6-40)
[2019-06-05 08:00] VITALS: BP 124/84; BP 140/92
--- NOTE | 2019-06-05 08:19 | NUR ---
PT INSTRUCTED ON HOW TO CALL FOR BREAKFAST. DENIES ANY FURTHER NEEDS AT THIS TIME. VSS. WILL MONITOR.
[2019-06-05 09:16] LABS: VITAMIN D, 25-HYDROXY 28.5 ng/mL (30-100)
--- NOTE | 2019-06-05 11:48 | NUR ---
iv and residential monitor removed. u informed of discharge completion. DISCHARGE INSTRUCTIONS REVIEWED. VSS. WILL MONITOR.
[2019-06-05] MEDS ORDERED: VITAMIN D22000 UNIT PO (12:02)
[2019-06-05] MEDS ORDERED: PHARMASSURE FO0.4 MG PO (12:02)
--- NOTE | 2019-06-05 13:09 | NUR ---
PT TRANSFERRED TO U AT THIS TIME.
== END 2019-06-05 13:09 | disposition home health service (06) ==
LOC: ED 11:19 → EDHOLD 17:03 → 5E 17:03
PROVIDERS: Emergency Medicine; Internal Medicine; ADMIT Internal Medicine
DX: R07.89 Other chest pain (principal); R73.9 Hyperglycemia, unspecified; E66.3 Overweight; F32.9 Major depressive disorder, single episode, unspecified; R00.1 Bradycardia, unspecified; E53.8 Deficiency of other specified B group vitamins; I10 Essential (primary) hypertension; F41.9 Anxiety disorder, unspecified; R73.03 Prediabetes; E55.9 Vitamin D deficiency, unspecified

== ENCOUNTER 2019-06-05 13:13 | Inpatient (IN) | payer MEDICARE ==
[~2019-06-05] VITALS: Ht 175.2 cm; Wt 80.7 kg
--- NOTE | 2019-06-05 13:12 | NUR ---
VONDA DWYER a 63 year old M admitted via wheel chair from the OTHER as a voluntary admission. Arrived on unit at 1312. ALLERGIES: NKA. Vital signs are: 98.2-67-16 138/87 SPO2 98%RA. The client signed the following forms with stated understanding: Authorization For The Release of Medical Information, Clothing List, Consent to Voluntary Admission and Hospitalization, Consent and Release Forms/Receipt of Rights, Acknowledgement of Advance Directive Information, Behavioral Health Consent Form, and Informed Consent of Medications. Admitted under the services of VONDA Mcdonough MD. A search was conducted and hazardous articles were removed. Client was oriented to the unit. CISCO DUNCAN
[~2019-06-05 13:13] MED LIST changes: +PHARMASSURE FO0.4 MG PO; +VITAMIN D22000 UNIT PO
--- NOTE | 2019-06-05 13:29 | NUR ---
Please refer to psychosocial assessment from previous pt admit date of 05/28/19.
[2019-06-05 13:30] VITALS: BP 138/87
[2019-06-05 13:32] VITALS: BP 138/87
--- NOTE | 2019-06-05 14:34 | NUR ---
DR. BEAVER MADE AWARE OF SI SCORE OF 68. STATES Q15 MIN MONITORING REMAINS APPROPRIATE. PT VERBALLY CONTRACTS FOR SAFETY.
--- NOTE | 2019-06-05 15:40 | NUR ---
PM GROUP PT DID NOT ATTEND AFTERNOON GROUP THERAPY. PT WAS IN A MEETING WITH NURSING AND THEN WITH SW.
--- NOTE | 2019-06-05 15:54 | NUR ---
Met with pt this afternoon individually. Pt wanted to speak about his son Jose M visiting later today. This is the first time that Jose M will see pt since pt's SA. Per pt's request, discussed scenarios of pt and Jose M's interaction. Pt asked if this marine underwriter would be available to meet with pt and Jose M at a different time. Confirmed that this can be planned. Pt confirmed that he continues to feel suicidal. He further confirmed that he would not make an attempt to take his life while in [facility]. However, pt stated that if he were out of the hospital today, he would definitely follow through with a plan to take his life.
[2019-06-05 19:04] VITALS: BP 122/72
[2019-06-05 20:17] VITALS: BP 122/72
--- NOTE | 2019-06-05 22:03 | NUR ---
Patient alert and oriented x 3. Patient verbally contracts for safety. Denies any hallucinations at this time. Patient compliant with medications without any difficulty. Provided 1:1 for emotional support. Patient isolative to room except for meals and snacks. Plan to continue to encourage medication compliance and continue to provide 1:1 for emotional support. Also continue to encourage interaction with staff and other patients and continue to encourage patient to contract for safety. Q 15 minute safety checks continued and maintained. See [facility] flowsheet for further documentation.
--- NOTE | 2019-06-06 00:13 | NUR ---
24 HR chart check completed.
--- NOTE | 2019-06-06 05:18 | NUR ---
Patient slept approx. 5 hours throughout shift. Q 15 minute safety checks continued and maintained.
[2019-06-06 07:28] VITALS: BP 127/90
--- NOTE | 2019-06-06 09:30 | NUR ---
Per Nurse on [facility], Dr. Odonnell plans for discharge on Monday with return home.
--- NOTE | 2019-06-06 10:59 | NUR ---
Met with patient individually this AM. Inquired about pt's time with his son Jose M last evening. Pt stated that it went much better than expected. Pt continued that Jose M was very supportive and accepting of pt's current emotional state. Jose M also made the comment that pt and he need to spend more time together. Pt also shared some of his emotions with his . Pt voiced appreciation to this creative services writer for encouraging pt to open up to his family. Pt stated that he was awake most of the night, but it was for a good reason. Pt stated that he was thinking about his family, his life, and what he needs to do to get well. Discussed pt's journey toward wellness. Pt enjoys planning. Encouraged pt to take time to make definite plans for his wellness. Discussed pt's need to receive energy from other people more so than within himself. Pt provided examples of recent encounters with negative people and how that impacted him. Discussed this further and explored ways that pt can release that negativity in the future. 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 Requested that pt name 3 things that he likes about himself. Pt struggled to do so but was able to name 3 qualities about himself. Pt remains suicidal but with a lessened intensity. He is now feeling hopeful stating "I'd say I'm 40% better than yesterday when I knew that if I could walk out this door, that would be it. I'd be done and gone." Pt would now like to have a family meeting with his and son. Will discuss this further when pt's is here to visit today. Encouraged pt to work on writing his plan toward wellness and journaling. Discussed the IOP at the [facility]. Pt is willing to pursue this at discharge along with continuing with his counselor at [facility].
--- NOTE | 2019-06-06 11:45 | NUR ---
AM GROUP PT ATTENDED MORNING GROUP THERAPY AND PARTICIPATED BY PLAYING CARDS WITH PEERS. PT EXPRESSED NO SUICIDAL IDEATIONS WHILE IN GROUP THERAPY
[2019-06-06 19:19] VITALS: BP 114/67
--- NOTE | 2019-06-06 21:11 | NUR ---
Patient alert and oriented x 3. Patient verbally contracts for safety. Denies any hallucinations at this time. Patient compliant with medications without any difficulty. Provided 1:1 for emotional support. Patient isolative to room except for meals and snacks. Patient interactive with staff. Patient in pleasant mood. Patient laughing appropriately when conversation was funny. Plan to continue to encourage medication compliance and continue to provide 1:1 for emotional support. Also continue to encourage interaction with staff and other patients and continue to encourage patient to contract for safety. Q 15 minute safety checks continued and maintained. See [facility] flowsheet for further documentation.
--- NOTE | 2019-06-07 00:27 | NUR ---
24 HR chart check completed.
--- NOTE | 2019-06-07 05:33 | NUR ---
Patient slept approx. 9 hours throughout shift. Q 15 minute safety checks continued and maintained.
[2019-06-07 08:00] VITALS: BP 113/67
--- NOTE | 2019-06-07 08:04 | NUR ---
DR BARRERA ON UNIT TO ASSESS PT.
--- NOTE | 2019-06-07 08:30 | NUR ---
Treatment Plan meeting with Dr. Odonnell RN, AT, and Wellfield Technician. Plan for discharge Monday. Pt. to return home at discharge.
--- NOTE | 2019-06-07 11:42 | NUR ---
AM GROUP PT ENTERED GROUP LATE DUE TO A MEETING WITH SW. PT PARTICIPATED IN GROUP BY COLORING AND SOCIALIZING WITH NURSING STUDENTS AND PEERS. PT WAS MUCH BRIGHTER AND ANIMATED. PT WAS LAUGHING, JOKING AND REMINSCING. PT EXPRESSED FUTURE GOALS AND NO SUICIDAL IDEATIONS.
--- NOTE | 2019-06-07 12:22 | NUR ---
PT C/O PAIN IN LOWER BACK. REQUESTED TYLENOL. PRN TYLENOL GIVEN AT THIS TIME. WILL MONITOR EFFECTIVENESS OF MEDICATION.
--- NOTE | 2019-06-07 15:27 | NUR ---
Met with pt this AM for individual counseling. Assessed pt's mood. Pt stated that he doesn't feel as good as he did yesterday. Discussed this further. Pt states that he continues to have times when he thinks of taking his life, but these times are less frequent. Pt stated that he is believing not that he can beat this depression and thoughts of self-harm. Discussed and action plan for pt's success. Pt asked to discuss his 's dementia dx. Provided education to pt about dementia. Discussed Alzheimer's [employer] and [employer] website. This instructional writer will provide further dementia resources to pt upon his discharge. Discussed pt's journey to wellness and the need for pt to be aware of his own needs. Discussed self-awareness further. Pt will continue to journal and to work on plans that will assist in his healing when he discharges. By the end of the session, pt stated that he was feeling much better than earlier. During session, pt spoke of waking up with negative thoughts and that this was bothersome to him. After meeting with pt, placed in his room affirmative messages on the wall and near the mirror in the bathroom, so that pt can be reminded of having a positive day.
[2019-06-07 19:06] VITALS: BP 131/78
--- NOTE | 2019-06-07 21:29 | NUR ---
Patient alert and oriented x 3. Patient verbally contracts for safety. Denies any hallucinations at this time. Patient compliant with medications without any difficulty. Provided 1:1 for emotional support. Patient interactive with staff. Patient in pleasant,laughing,and cooperative. Plan to continue to encourage medication compliance and continue to provide 1:1 for emotional support. Also continue to encourage interaction with staff and other patients and continue to encourage patient to contract for safety. Q 15 minute safety checks continued and maintained. See [facility] flowsheet for further documentation.
--- NOTE | 2019-06-08 00:15 | NUR ---
24 HR chart check completed.
--- NOTE | 2019-06-08 05:25 | NUR ---
Patient slept approx. 9 hours throughout shift. Q 15 minute safety checks continued and maintained.
[2019-06-08 08:00] VITALS: BP 121/83
--- NOTE | 2019-06-08 08:00 | NUR ---
Patient resting quietly with no c/o discomfort. Respirations easy and regular. Vital signs stable. No overt distress. GIVENS,JAIRO
--- NOTE | 2019-06-08 11:57 | NUR ---
AM/JOURNAL/LEISURE SKILLS PT ATTENDED AND PARTICIPATED IN ALL ACTIVITY. PT PLEASANT AND ON TASK WITH NO S.I. EXPRESSED AT THIS TIME. PT WILL CONTINUE TO ATTEND AND PARTICIPATE TO BEST OF PT ABILITY IN FUTURE GROUP SESSIONS.
--- NOTE | 2019-06-08 15:30 | NUR ---
The patient has no complaints and is resting comfortably. JAIRO AYERS
--- NOTE | 2019-06-08 15:53 | NUR ---
PM/MUSIC/LEISURE SKILLS PT ATTENDED AND PARTICIPATED IN ALL ACTIVITY'S. PT PLEASANT AND ON TASK WITH NO S.I. EXPRESSED. PT WILL CONTINUE TO ATTEND AND PARTICIPATE IN FUTURE GROUP SESSIONS.
[2019-06-08 20:00] VITALS: BP 130/80
--- NOTE | 2019-06-09 01:05 | NUR ---
PT RESTING QUIETLY, NO SI OR HI, DELUSIONS OR HALLUCINATIONS NOTED THIS SHIFT. PT MEDICATION COMPLIANT NO BEHAVIORS NOTED THIS SHIFT. PT IN BED AT THIS TIME.
--- NOTE | 2019-06-09 05:54 | NUR ---
PT SLEPT 8 HOURS WITH 1 AWAKENING TO THE BATHROOM
[2019-06-09 08:01] VITALS: BP 124/77
--- NOTE | 2019-06-09 10:15 | NUR ---
1:1 PROVIDED FOR THERAPEUTIC COMMUNICATION. PT SITTING ON EDGE OF BED. TEARFUL. PT STATED HE IS UNSURE HOW TO COPE WHEN HE HE HAS AN OVERWHELMING FEELING THAT COMES OVER HIM. tHIS NURSE SPOKE TO PT ABOUT AND HER DIAGNOSIS, HIS SUPPORT OUTSIDE THE HOSPITAL. PT STATED HE REALLY HAS NO SUPPORT OUTSIDE THIS HOSPITAL STAY. STATED HIS STEPSON LIVES WITH HIM AND HELPS HIS . SPOKE TO PT ABOUT VOLUNTEERING, JOURNALING, MAKING A LIST OF GOOD MEMORIES AND WHO WOULD MISS HIM AND WHY THEY WOULD MISS HIM ALONG WITH WHY HE WOULD MISS THEM. ENSURED PT HE WAS NOT BEING DISCHARGED TODAY AND PT AGREED TO LIVE ONE DAY AT A TIME AND TALK TO DR BEAVER AND YING, INSURANCE BILLING SPECIALIST, TOMORROW ABOUT POST DISCHARGE PLANS. PT THEN TOOK A FEW MOMENTS TO GATHER HIS THOUGHTS AND RETURNED TO THE DININGROOM. PT ALSO COMMENTED HE HAS BEEN JOURNALING AND HE CAUGHT HIMSELF MAKING A PLAN AND STILL HAS SUICIDAL THOUGHTS. PT AGREED TO COME TO STAFF WHEN HE IS FEELING THAT WAY AND ASK TO SPEAK TO US. MEDICATION EDUCATION COMPLETED.
--- NOTE | 2019-06-09 16:12 | NUR ---
Patient resting quietly with no c/o discomfort. Respirations easy and regular. Vital signs stable. No overt distress. GIVENS,JAIRO
--- NOTE | 2019-06-09 18:49 | NUR ---
PT GAVE HIS JOURNALS TO THE MILIEU THERAPIST TO SHOW THE STAFF. HE STATED HE DIDNT WANT TO CHICKEN OUT AND NOT DO IT IN THE MORNING. COPIES MADE OF JOURNALS AND THEY WERE GIVEN BACK TO THE PT. THIS NURSE CALLED JOURDAN LUNA AND UPDATED THE DR ON THE PT REQUESTING SOMETHING EXTRA FOR INBETWEEN ATIVAN DOSES TO TAKE THE EDGE OFF. DR ORDER VISTARIL 25 MG QID PRN.
[2019-06-09 20:00] VITALS: BP 140/67
--- NOTE | 2019-06-10 01:24 | NUR ---
P: SUICIDAL IDEATION, GUILT, DEPRESSION, POOR COPING MECHANISMS I: SPOKE WITH PATIENT THIS EVENING IN REFERENCE TO JOURNALS ANDHOW HE FELT ABOUT BEING SO OPE WITH NURSES. PT STATED HE SHOULD OF KEPT IT TO HIMSELF BECAUSE NOW HE WON'T GET TO GO HOME. 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 TALKED WITH PT ABOUT OPTIONS HE COULD DO REGULARLY TO HELP HIM KEEP AHOLD OF THAT PERSON AND BRING [place] BACK TO HIS LIFE. PT WAS RECEPTIVE, TALKED ABOUT CLASSIC CARS, RACING, CH[place]IS [place]ICH, CAMPING, AND GENERAL THINGS. STATED HE WOULD CONTINUE TO THINK ABOU THEM. R: PT STATED HE SHOULD OF BEEN HONEST WITH US ABOUT HIS THOUGHTS, HE WAS APOLOGETIC AND STATED " I MESSED UP, I SHOULD OF TOLD YOU GUYS, " BUT I JUST WANT TO LEAVE TO SEE MY SHE IS MISSING ME. WE PROCEEDED TO TALK ABOUT THE ALTERNATIVE IF HE WERE TO END HIS LIFE OF HOW SHE WOULD HANDLE IT. PT UNDERSTANDS BUT IS HAVING A HARD TIME KEEPING HIS HEAD IN THE POSTIVE SIDE OF THINGS. P: CONTINUE TO CONTRACT FOR SAFJUDE, DISCUSS PT NEEDS, UPDATE DR ON CHANGES, AND PROCEED WITH 15 MIN CHECKS PER ORDER.
--- NOTE | 2019-06-10 06:17 | NUR ---
PT SLEPT 6.5 HOURS LAST NIGHT, STATED HE SLEPT WELL ALSO.
[2019-06-10 07:45] VITALS: BP 160/70
--- NOTE | 2019-06-10 08:15 | NUR ---
Treatment Plan meeting with Dr. Odonnell, RN, AT, SW and Direct Chill Casting Operator. Plan for discharge Mon/Monday. At this point Pt. will return home with Follow up appointments arranged.
--- NOTE | 2019-06-10 10:11 | NUR ---
Family meeting held this AM with pt, pt's son Jose M, and this sports writer. Discussed pt's continued suicidal ideations. Pt has continually voiced that his family would heal, should pt choose to take his life. Gently confronted pt with this and asked Jose M to speak to this. Jose M confirmed that his life would never be the same knowing that pt chose to leave Jose M. Jose M further shared about how much he needs pt in his life. Pt was tearful as pt stated that he needed to hear everything that Jose M was saying. With prompting from this sports writer, pt spoke of what he feels he needs from Jose M moving forward. Pt and Jose M spoke of making definite plans to remain connected. Discussed a safety plan. Pt chose the word "[place]" to use as his cry for help to Jose M, should pt find himself severely depressed in the future and struggling to communicate his emotions. Both pt and Jose M continued to share their thoughts and emotions. Discussed the topics of depression and suicide further. At the end of the meeting, pt stated to this sports writer, "You spoke before of finding the spark in me. This is more than a spark, This is a flame. I needed this meeting. This means so much to me." Jose M is to provide dates to this sports writer of when he is available to spend time with pt, so that pt and Jose M can have plans already scheduled prior to pt's discharge.
--- NOTE | 2019-06-10 11:15 | NUR ---
DR. BARRERA ON UNIT TO ASSESS PT, UPDATE PROVIDED.
--- NOTE | 2019-06-10 12:17 | NUR ---
AM GROUP NO AM GROUP THERAPY DUE TO NEW PT ASSESSMENTS AND 1:1
--- NOTE | 2019-06-10 13:58 | NUR ---
P: PT ISOLATIVE TO SELF AT TIMES THROUGHOUT THE SHIFT. PT SUICIDAL, MOOD IS DEPRESSED I: PROVIDED EMOTIONAL SUPPORT AND 1:1 FOR PT TO VOICE FEELINGS, ENCOURAGE MED COMPLIANCE, ENCOURAGE GROUP PARTICIPATION AND SOCIALIZATION, VERBALLY CONTRACT FOR SAFETY R: PT DENIES SUICIDAL PLAN AT THIS TIME, VERBALLY CONTRACTS FOR SAFETY. PT ALERT TO PERSON, PLACE, TIME AND SITUATION. PT MED COMPLIANT WITHOUT DIFFICULTY, MED EDUCATION PROVIDED. PT CALM, MOOD IS DEPRESSED. PT PARTICIPATING IN AFTERNOON GROUP, SMILING AND CONVERSING WITH STAFF AND PEERS. PT AMBULATORY THROUGHOUT UNIT, GAIT STEADY. PT CONTINENT OF BOWEL AND BLADDER. P: PROVIDE EMOTIONAL SUPPORT AND 1:1 FOR PT TO VOICE FEELINGS, ENCOURAGE MED COMPLIANCE AND PROVIDE MED EDUCATION, ENCOURAGE PT TO VOICE SUICIDAL THOUGHTS AND VERBALLY CONTRACT FOR SAFETY, MONITOR PT BEHAVIORS ON Q15 MIN SAFETY CHECKS, ENCOURAGE GROUP PARTICIPATION AND SOCIALIZATION, ENCOURAGE PT TO CONTINUE TO JOURNAL THOUGHTS AND FEELINGS
--- NOTE | 2019-06-10 15:57 | NUR ---
PM GROUP PT ATTENDED AFTERNOON GROUP THERAPY AND PARTICIPATED BY WORKING ON HIS [employer] AND [employer]. PT EXPRESSED NO SUICIDAL IDEATIONS WHILE IN GROUP.
[2019-06-10 19:40] VITALS: BP 140/77
--- NOTE | 2019-06-10 20:42 | NUR ---
EVENING/MUSIC TRIVIA/ART PT ATTENDED AND PARTICIPATED. PT WAS PLEASANT AND ON TASK WITH NO S.UI. EXPRESSED AT THIS TIME. PT WILL CONTINUE TO ATTEND AND PARTICIPATE IN FUTURE GROUP SESSIONS.
--- NOTE | 2019-06-10 21:26 | NUR ---
P---SUICIDAL IDEATIONS, HOPELESS/HELPLESS. MORE SOCIAL TONIGHT AND INTERACTIVE. I--DISCUSSED VISIT WITH SON AND THE IMPACT IT HAS HAD ON HIM. REVIEWED MEDICATIONS. OFFERED 1:1. REINFORCED HIM TO CALL OUT IF HE FEELS LIKE TALKING, FEELS SUICIDAL OR ANY OTHER ISSUES R--OH MY VISIT WITH MY SON WAS WONDERFUL. I FEEL I CAN GO HOME NOW. DENIES ANY SUICIDAL IDEATIONS. AGREES TO CONTACT STAFF IF HE IS FEELING DOWN OR NEEDS TO TALK P--MONITOR Q 15 MINUTES AND PRN. MONITOR FOR CHANGES IN BEHAVIOR OR MOOD. BE AVAILABLE TO TALK IF NEEDED
--- NOTE | 2019-06-11 05:40 | NUR ---
SLEPT WELL PAST 2130PM. MOVED SELF AROUND IN BED. NO PROBLEMS THROUGHOUT NIGHT. WILL CONTINUE TO MONITOR FOR SUICIDAL IDEATIONS.
--- NOTE | 2019-06-11 06:38 | NUR ---
SHOWER AND RAYSHAWN COMPLETED
[2019-06-11 07:53] VITALS: BP 135/82
--- NOTE | 2019-06-11 11:33 | NUR ---
Treatment Plan meeting with Dr. Odonnell, RN, AT, SW and Mold Tooler. Plan for discharge Monday. Pt. will return home and follow with [facility].
--- NOTE | 2019-06-11 11:51 | NUR ---
Referral Faxed to [facility] Attn: Vanna [phone]
--- NOTE | 2019-06-11 11:51 | NUR ---
AM GROUP/LESSONS FROM [employer] PT ATTENDED AND PARTICIPATED IN ALL OF THE GROUP ACTIVITIES. PT EXPRESSED NO SUICIDAL IDEATIONS WHILE IN GROUP. PT WAS ON TOPIC AND CONTRIBUTED TO THE GROUP DYNAMIC
--- NOTE | 2019-06-11 12:08 | NUR ---
ALERT AND ORIENTED TO PERSON, PLACE, TIME, SITUATION. STABLE MOOD. CALM AND COOPERATIVE. INTERACTIVE AND PARTICIPATING. ORGANIZED THOUGHTS. NO HALLUICNATIONS. DENIES SI. VERBALLY CONTRACTED FOR SAFETY INCASE SI THOUGHTS ARISE. MEDICATION COMPLAINT WITHOUT DIFFICUTLY. MED EDUCATION PROVIDED AND PT VERBALIZED UNDERSTANDING. GAIT STEADY. APPETITE GOOD. PLAN IS TO CONTINUE TO ENGAGE PT IN 1:1 FOR THERAPEUTIC COMMUNICATION AND GROUP THERAPY. CONTINUE TO MONITOR BEHAVIORS WITH Q15 MINUTE SAFETY CHECKS. SEE [facility] FLOWSHEETS FOR SPECIFIC MONITORING.
--- NOTE | 2019-06-11 15:38 | NUR ---
PM GROUP/LEISURE INTERESTS PT ATTENDED AFTERNOON GROUP THERAPY AND PARTICIPATED BY JOURNAL WRITING AND SOCIALIZING WITH PEERS. PT EXPRESSED NO SUICIDAL IDEATIONS WHILE IN GROUP. PT EXPRESSED EXCITEMENT OVER BEING RELEASED TOMORROW
--- NOTE | 2019-06-11 16:13 | NUR ---
Met with pt for individual session today. Pt reports that he is feeling much better. Pt denies suicidal ideations. Discussed pt's thoughts about family meeting held yesterday. Discussed pt's thoughts of discharging. Pt shared some of his journaling with this medical underwriter. Pt is future-oriented as he spoke of plans after discharge. While this medical underwriter was with pt, corresponded with pt's son Jose M via text and solidified plans for pt and Jose M to spend time together next Monday evening. Pt spoke of now feeling as if he has a purpose in his life. Discussed discharge plan further.
[2019-06-11 19:40] VITALS: BP 125/76
--- NOTE | 2019-06-11 20:50 | NUR ---
EVENING PT ATTENDED AND PARTICIPATED IN ALL GROUP ACTIVITY'S. PT PLEASANT AND ON TASK WITH NO S.I. EXPRESSED AT THIS TIME. PT WILL CONTINUE TO ATTEND AND PARTICIPATE IN FUTURE GROUP SESSIONS.
--- NOTE | 2019-06-11 21:17 | NUR ---
P--PREPARING FOR DISCHARGE. KATIE REVIEWED I- CONTRACTED FOR SAFETY FOR DISCHARGE. REVIEWED IMPORTANCE OF HIM TAKING CARE OF HIMSELF AND NOT GETTING LOST IN LIFE EVENTS. REVIEWED MEDICATIONS AND IMPORTANCE OF NOT MISSING DOSES OR REFILLS. DISCUSSED COUNCELLING ON AN OUTPATIENT BASIS OR CALLING DOCTOR. TO RETURN TO ED IF FEELING SUICIDAL OR OUT OF CONTROL R--I PROMISE TO SEEK HELP AND NOT HURT MYSELF. I HAVE TO WORK ON MAKING MYSELF A PRIORITY BUT WITH MY FAMILIES HELP I AM HOPEFUL. I FEEL 85-90% WHOLE. THESE LAST FEW DAYS TALKING WITH YOU AND YING HAS MADE SUCH A DIFFERENCE. I AM EXCITED BUT ALSO NERVOUS ABOUT IT. P-BE AVAILABLE TO TALK. MONITOR FOR ANY CHANGES IN MOOD OR BEHAVIOR. MONITOR Q 15 MINUTES AND PRN FOR SAFETY
--- NOTE | 2019-06-12 00:36 | NUR ---
24 HR chart check completed.
--- NOTE | 2019-06-12 05:53 | NUR ---
SLEPT WELL PAST 2200 WITH NO INTERUPTIONS
[2019-06-12 07:35] VITALS: BP 130/64
--- NOTE | 2019-06-12 08:00 | NUR ---
Treatment Plan meeting with Dr. Odonnell, RN, AT, SW and Automobile Washer Steam. Plan for discharge today. Pt. will return home with his . Follow up appointments have been scheduled. Pt. also will go to [facility] .
--- NOTE | 2019-06-12 09:00 | NUR ---
DR. MONTILLA NOTIFIED OF PATIENT BEING DISCHARGED, TO INFORM DR. MAYER OF DISCHARGE.
[2019-06-12] MEDS ORDERED: ABILIFY5 MG PO (09:10)
[2019-06-12] MEDS ORDERED: LORAZEPAM1 MG PO (09:10)
[2019-06-12] MEDS ORDERED: MIRTAZAPINE15 M2 PO (09:10)
--- NOTE | 2019-06-12 09:32 | NUR ---
Met with pt this AM. Pt reports that he had a good night and that he continues to feel ready for discharge. Reviewed discharge plan with pt. Provided pt with Alzheimer's support group information and will send informational papers home with pt. Pt was smiling appropriately during interaction. He continues to be future-oriented discussing plans after his discharge.
--- NOTE | 2019-06-12 11:51 | NUR ---
AM GROUP PT ATTENDED MORNING GROUP THERAPY AFTER MEETING WITH SW. PT FINISHED UP SOME PROJECTS AND IS SET TO BE DISCHARGED FROM THE UNIT THIS AFTERNOON.
--- NOTE | 2019-06-12 12:46 | NUR ---
PATIENT AND FAMILY READY FOR DISCHARGE. REVIEWED DISCHARGE INSTRUCTIONS AND ANSWERED ALL QUESTIONS. ALL PAPERWORK SIGNED. ALL BELONGINGS GATHERED AND SENT WITH PATIENT. PATIENT ASSISTED TO WHEELCHAIR AND OFF THE UNTI TO PRIVATE VEHICLE WITH STAFF.
--- NOTE | 2019-06-12 13:03 | NUR ---
Met with pt individually prior to pt's discharge. Assisted pt in processing his emotions in regards to discharging and returning home. Pt spoke of being somewhat nervous about his discharge. Confirmed to pt that this is quite normal and discussed this further. 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 Pt spoke of the pivotal moment in his recovery, which was during his family meeting. Discussed pt's support that is in place for him and the tools that he has in order to continue his journey toward wellness. Pt spoke about his family further. Confirmed discharge plan of pt participating in the IOP program at [facility]. An appointment was also scheduled with Daina Alegre PhD at [facility]. Pt will then be referred by Daina to [facility] psychiatry department during pt's first appointment. Pt's affect is animated. He denies depression and suicidal ideations. Pt is future-oriented and voicing hope for his future.
--- NOTE | 2019-06-12 13:15 | NUR ---
Patient discharged today to home with his . Follow-up was scheduled at [facility]. Pt is also scheduled to attend the [facility] at [facility]. While at [facility], pt's mood improved and anxiety lessened. Pt no longer voiced suicidal ideations by discharge date. Pt is future-oriented and voicing hope for his future. While at [facility], pt was pleasant and cooperative with staff and peers. He also participated in programming.
== END 2019-06-12 12:45 | disposition home or self-care (01) | DRG 885 ==
LOC: 3N 13:13
PROVIDERS: ADMIT Psychiatry & Neurology Psychiatry
DX: F33.2 Major depressive disorder, recurrent severe without psychotic features (principal); R45.851 Suicidal ideations; F34.1 Dysthymic disorder; F41.0 Panic disorder [episodic paroxysmal anxiety]; R73.03 Prediabetes; I10 Essential (primary) hypertension; E55.9 Vitamin D deficiency, unspecified; R73.9 Hyperglycemia, unspecified; E53.8 Deficiency of other specified B group vitamins; R00.1 Bradycardia, unspecified; Z91.5 Personal history of self-harm; Z90.49 Acquired absence of other specified parts of digestive tract; Z82.49 Family history of ischemic heart disease and other diseases of the circulatory system; Z79.899 Other long term (current) drug therapy

== ENCOUNTER 2019-09-11 16:05 | Inpatient (IN) | payer MEDICARE ==
[~2019-09-11] VITALS: Ht 175.3 cm; Wt 79.4 kg
[~2019-09-11 16:05] MED LIST changes: +ABILIFY5 MG PO; +LORAZEPAM1 MG PO
[2019-09-11] MEDS ORDERED: CYMBALTA60 MG PO (16:51)
[2019-09-11] MEDS ORDERED: ZESTRIL40 MG PO (16:52)
[2019-09-11] MEDS ORDERED: WELLBUTRIN XL150 MG PO (16:53)
[2019-09-11 17:26] VITALS: BP 149/78
--- NOTE | 2019-09-11 17:32 | NUR ---
VONDA DWYER a 64 year old M admitted via ambulance from the EMERGENCY ROOM as a emergency 72 hr. hold admission. Arrived on unit at 1638. ALLERGIES: NKA. Vital signs are: 98.2-46-16 149/78. The client signed the following forms with stated understanding: Authorization For The Release of Medical Information, Clothing List, Consent to Voluntary Admission and Hospitalization, Consent and Release Forms/Receipt of Rights, Acknowledgement of Advance Directive Information, Behavioral Health Consent Form, and Informed Consent of Medications. Admitted under the services of VONDA Mcdonough MD. A search was conducted and hazardous articles were removed. Client was oriented to the unit. CESILIA BURNETTE PATIENT HAS CONSTANT THOUGHT OF SELF HARM TO CUT WRIST WITH KNIFE. PATIENT CONTRACTED FOR SAFETY AND HAS NOT INTENT TO HARM SELF WHILE HERE AT THE HOSPITAL. PATIENT HAS PAST REGRET AND REMORSE OF BAD DECISION MAKING, MOSAIC LAYER AAMIR, WATCH SPOUSE DECLINE WITH DEMENTIA AND EXPRESSING BEING VERY TIRED AND TIRE OF WATCHING LOVED ONES PASS WITH THEIR DISEASE PROCESS. DR. BEAVER NOTIFIED. CONTINUE WITH Q 15 MINUTE SAFETY CHECKS.
[2019-09-11 18:05] VITALS: BP 149/78
[2019-09-11 20:00] VITALS: BP 145/86
--- NOTE | 2019-09-12 01:56 | NUR ---
PT DEPRESSED. HOPELESS/HELPLESS. STATES THERE IS "STILL TOO MUCH GOING ON" AND "CAN'T FIGURE A WAY OUT". PT PROVIDED WITH EMOTIONAL SUPPORT, 1:1, ENCOURAGED TO EXPRESS SELF. PT STATES "WELL, I AM HERE, SO I GUESS THAT IS A STEP". STATES "I FELT SUICIDAL SINCE I LEFT BECAUSE NOTHING HAS CHANGED, AND I FEEL LIKE THE MEDS I WAS ON WEREN'T WORKING FOR ME". PT EDUCATED ON NEW MEDICATIONS, VERBALIZES UNDERSTANDING. VERBALLY CONTRACTS FOR SAFETY. STATES "I WOULD NEVER DO ANYTHING WHILE I AM HERE". STATES HIS CURRENT DEPRESSION IS RELATED TO BOTH PAST EVENTS THAT HE NEEDS TO COPE WITH AND CURRENT EVENTS LIKE FINANCIAL DIFFICULTY AND HIS WHO IS COGNITIVELY DECLINING. PT EXPRESSED GRATITUDE FOR ABILITY TO EXPRESS SELF AND THEN WENT TO BED. WILL CONTINUE TO ENCOURAGE PT TO EXPRESS FEELINGS, PROVIDING 1:1 AND EMOTIONAL SUPPORT APPROPRIATE. WILL CONTINUE TO EDUCATE ON MEDICATIONS. WILL ENCOURAGE PARTICIPATION IN GROUP THERAPY FOR SOCIALIZATION AND SUPPORT.
--- NOTE | 2019-09-12 04:51 | NUR ---
DR. MONTILLA MADE AWARE OF PT'S HOME MEDS NEEDING RECONCILED.
[2019-09-12 06:27] LABS: BASO # 0.1 10*3/uL (0.0-0.1); EOS # 0.1 10*3/uL (0.0-0.4); EOS % 1.7 % (1.0-4.0); HEMATOCRIT 44.4 % (42.0-52.0); HEMOGLOBIN 14.7 g/dl (14.0-18.0); LYMPH % 33.7 % (27.0-41.0); MEAN CELL VOLUME 92.1 fl (80.0-94.0); MEAN CORPUSCULAR HGB 30.5 pg (27.0-31.0); MEAN CORPUSCULAR HGB CONC 33.1 g/dl (33.0-37.0); MEAN PLATELET VOLUME 10.6 fl (9.6-12.3); MONO # 0.5 10*3/uL (0.1-1.0); MONO % 8.8 % (3.0-9.0); NEUT # 3.3 10*3/uL (2.3-7.9); NEUT % 54.6 % (47.0-73.0); PLATELET COUNT AUTOMATED 250 10*3/uL (130-400); RED BLOOD COUNT 4.82 10*6/uL (4.50-5.90); RED CELL DISTRI WIDTH 12.4 % (0-14.5)
[2019-09-12 06:28] LABS: ALBUMIN 3.3 gm/dl (3.1-4.5); ALKALINE PHOSPHATASE 103 U/L (45-117); BUN 8 mg/dl (7-24); CHLORIDE 110 mmol/L (98-107); CHOLESTEROL 165 mg/dL (<200); CREATININE 1.25 mg/dL (0.70-1.30); HDL CHOLESTEROL 32 mg/dl (40-60); LDL CHOLESTEROL 114 mg/dL (9-159); POTASSIUM 4.3 mmol/L (3.5-5.1); SGOT/AST 10 IU/L (3-35); SGPT/ALT 15 U/L (12-78); SODIUM 144 mmol/L (136-145); TOTAL PROTEIN 6.6 gm/dL (6.4-8.2); TRIGLYCERIDES 94 mg/dl (<150); VLDL CHOLESTEROL 19 mg/dL (6-40)
--- NOTE | 2019-09-12 07:17 | NUR ---
PT SLEPT 3 HOURS LAST NIGHT
[2019-09-12 07:40] VITALS: BP 137/80
--- NOTE | 2019-09-12 08:15 | NUR ---
Treatment Plan meeting was held with Dr. Odonnell, RN, AT, HANDLE AND VENT MACHINE OPERATOR-S and Records Supervisor in attendance. Plan for discharge Next week. Pt. will return home.
--- NOTE | 2019-09-12 08:18 | NUR ---
PHYSICAL THERAPY Screen received as well as PT orders will follow thank you Tanya Lindsey PT
--- NOTE | 2019-09-12 08:21 | NUR ---
Nursing screen and Occupational Therapy referral received. Thank you. Kendal Araujo OTR/L
[2019-09-12 08:49] LABS: VITAMIN D, 25-HYDROXY 29.9 ng/mL (30-100)
--- NOTE | 2019-09-12 11:41 | NUR ---
AM GROUP AM GROUP WAS SHORTENED DUE TO NEW PT ASSESSMENTS. PT WAS PRESENT BUT WAS TAKEN TO A QUIET ROOM BY SW FOR INTAKE ASSESSMENT.
--- NOTE | 2019-09-12 14:45 | NUR ---
Occupational Therapy referral received and screen completed. Patient is independent in mobility and ADLs per nursing. Discharge OT referral. Kendal Araujo OTR/Chrissie
--- NOTE | 2019-09-12 15:52 | NUR ---
PM GROUP PT ATTENDED AFTERNOON GROUP THERAPY WHEN WE WERE DONE WITH HIS ASSESSMENT. PT WAS QUIET AND ON TASK. PT EXPRESSED SUICIDAL IDEATIONS DURING THE ASSESSMENT BUT NOT DURING GROUP.
[2019-09-12 20:00] VITALS: BP 132/65
--- NOTE | 2019-09-13 04:47 | NUR ---
P-DEPRESSED MOOD, ISOLATIVE I-REDIRECTION WITH 1:1 THERAPEUTIC INTERVENTIONS. EDUCATE AND ENCOURAGE MEDICATION COMPLIANCE R-PATIENT MEDICATION COMPLIANT AT HS. PATIENT ISOLATIVE IN DINING AREA AND WITH LIMITED INTERACTION WITH PEERS. PATIENT PROVIDED NOURISHMENT AND FLUIDS AT HS. PATIENT VERBALIZED "I WANT TO GET BETTER. I GOT SLEEP LAST NIGHT AND I HOPE I CAN SLEEP TONIGHT". P-CONTINUE TO ENCOURAGE MEDICATION COMPLIANCE, ENCOURAGE GROUP THERAPY WHILE AWAKE
--- NOTE | 2019-09-13 06:48 | NUR ---
PATIENT SLEPT 8 HOURS OF INTERRUPTED SLEEP THROUGHOUT SHIFT. Q 15 MINUTE CHECKS MAINTAINED. 24 HR chart check completed.
[2019-09-13 08:00] VITALS: BP 127/83
--- NOTE | 2019-09-13 08:15 | NUR ---
Treatment Plan meeting was held with DEON Garcia, RN, AT, SUPPLY CHAIN ASSISTANT-S and Neurology Stroke Physician in attendance. Plan for discharge unchanged. Pt. will return home at discharge.
--- NOTE | 2019-09-13 11:20 | NUR ---
DR BOWDEN UPDATED ON PT'S C/O HICCUPS FOR EXTENDED PERIODS. DR BOWDEN STATED IT'S MOST LIKELY A SIDE EFFECT, HOWEVER WILL LOOK TO SEE IF HE NEEDS TO CHANGE ANYTHING.
--- NOTE | 2019-09-13 11:22 | NUR ---
SPOKE WITH BRISEYDA LEMOS, PASTOR. UPDATED ON PT HICCUPING FOR AN EXTENDED PERIOD OF TIME. NO NEW ORDERS AT THIS TIME.
--- NOTE | 2019-09-13 11:40 | NUR ---
AM GROUP PT DID NOT ATTEND MORNING GROUP THERAPY. PT WAS IN A FAMILY MEETING
--- NOTE | 2019-09-13 14:25 | NUR ---
Received a message from pt's son Jose M late yesterday afternoon informing this leader writer that pt's giselle Haywood, who resides with pt and his , had suddenly . Remained in contact with Jose M through the evening hours to learn of tentative plans for when family would be at [facility] to inform pt of the . Also spoke with Dr Odonnell and made him aware of the circumstances. It was determined that Jose M and pt's stepdaughter Daniella would be at [facility] this AM at 9:00 to talk with pt. Vernea arrived at 9:00 and met with pt and this nephrology social worker. Pt was informed of the . This leader writer stayed with pt and his family to assess pt's emotional state and then left the room so that the family had some private time. Verena stayed with pt for an extended time with this leader writer stopping in the room from time to time to assess pt, offer support, and inquire if they had any needs.
--- NOTE | 2019-09-13 15:00 | NUR ---
Spent extended time with pt this AM and early afternoon. After walking pt's family to the door of [facility], went to pt's room and found him sitting on his bed weeping. Empathized with pt and offered support as pt spoke of his stepson. Assisted pt in processing the news of his giselle Haywood's . Pt stated that he wished it were he that were and not Yobany. Pt continues to speak of suicidal ideations. Incorporated CBT techniques into interaction with pt. Pt contines to voice that he has no future, no hope, and no purpose. Pt also stated that he has hurt too many times as he has lost people that he loved. He then stated that he doesn't want to go through the loss of his Apryl. Pt stated that he knows what he will do to end his life and where he will do it. He stated that he has already written his suicide note, and now he just needs the right time. Continued to work with pt until he was asked to attempt to each his lunch.
--- NOTE | 2019-09-13 15:18 | NUR ---
Received a call from pt's stepdaughter Daniella requesting that she be allowed to bring pt's Apryl in to visit pt at 14:30, as this is the time available in the midst of planning for pt's stepson Yobany. Informed pt of the time for the visit. Pt voiced concern that he would not be strong enough for Apryl. Discussed this further and offered reassurance. At time of meeting, brought pt to Apryl and Daniella. Apryl, who has dementia, was inappropriately happy. Yobany's was not discussed while this song writer was present. Allowed pt and his family time alone.
--- NOTE | 2019-09-13 15:34 | NUR ---
PM GROUP/MOVIE PT DID NOT ATTEND AFTERNOON GROUP THERAPY. PT WAS IN A FAMILY MEETING
--- NOTE | 2019-09-13 16:00 | NUR ---
A&O X4. DEPRESSED MOOD. ISOALTIVE AND WITHDRAWN. NO HALLUCINATIONS OR DELUSIONS NOTED. NO SI/HI STATED FROM PT. PT TEARFUL AT TIMES AFTER LEARNING OF THE PASSING OF HIS STEPSON. AMBULATORY WITH STEADY GAIT. PT CONTINUES TO HAVE INTERMITTENT HICCUPS. BEHAVIORS MONITORED WITH Q15 MINUTE SAFETY CHECKS. SEE [facility] FLOWSHEET FOR SPECIFIC MONITORING.
[2019-09-13 20:00] VITALS: BP 119/63
--- NOTE | 2019-09-13 21:53 | NUR ---
P-DEPRESSED MOOD, ISOLATIVE I-REDIRECTION WITH 1:1 THERAPEUTIC INTERVENTIONS. EDUCATE AND ENCOURAGE MEDICATION COMPLIANCE R-PATIENT MEDICATION COMPLIANT AT HS. PATIENT ISOLATIVE IN DINING AREA AND ROOM WITH LIMITED INTERACTION WITH PEERS. PATIENT REFUSED NOURISHMENT AT HS BUT WAS PROVIDED FLUIDS AT HS. PATIENT DID NOT WANT TO TALK ABOUT ANYTHING PERSONAL AT HS AND INTERACTED AND COMMUNICATED LESS WHEN ATTEMPTED TO DISCUSS PERSONAL OR ANY FAMILY DYNAMICS P-CONTINUE TO ENCOURAGE MEDICATION COMPLIANCE, ENCOURAGE GROUP THERAPY WHILE AWAKE
--- NOTE | 2019-09-14 06:06 | NUR ---
PATIENT SLEPT 8 HOURS OF INTERRUPTED SLEEP THROUGHOUT SHIFT. Q 15 MINUTE CHECKS MAINTAINED. 24 HR chart check completed.
[2019-09-14 07:46] VITALS: BP 115/64; BP 133/81
--- NOTE | 2019-09-14 12:01 | NUR ---
AM GROUP/LEISURE SKILLS PT IN ATTENDANCE ISOLATIVE TO SELF WORKING ON COLORING PAGE. PT EXPLAINS TO STAFF THAT HIS STEP SON YESTERDAY AND READ THE OBITUARY IN THE MORNING JOURNAL. THIS STAFF OFFERS SUPPORT TO PT. PT CONTINUES TO WORK ON ACTIVITY'S THORCHERYLOUT GROUP BUT KEPT QUIET. PT EXPRESSES NO S.I. AT THIS TIME, BUT AGREES TO FEELING OVERWHELMED DUE TO HIS STEPSON BEING A SUPPORT TO HIMSELF AND HIS . PT WILL CONTINUE TO ATTEND AND PARTICIPATE IN FUTURE GROUP SESSIONS.
--- NOTE | 2019-09-14 15:42 | NUR ---
PM GROUP/BINGO! PT ATTENDED AND PARETICIPATED IN ALL GROUP ACTIVITY'S. PT QUIET AND KEPT TO SELF BUT EXPRESSED NO S.I. OR ANXIETY AT THIS TIME. PT WILL CONTINUE TO ATTEND AN DPARTICIPATE IN FUTURE GROUP SESSIONS.
--- NOTE | 2019-09-14 18:38 | NUR ---
PT VOICES UNRELENTING SADNESS AND DEPRESSION. STATES HE FEELS WORSE BECAUSE HIS STEP-SON AND HE DOES NOT KNOW HOW TO PROCESS THE GRIEF. PT PROVIDED WITH EMOTIONAL SUPPORT. ENCOURAGED TO EXPRESS ANY THOUGHTS AND FEELINGS HE MAY WISH TO DISCUSS. ENCOURAGED TO HOLD ON TO PROTECTIVE FACTORS AND TO UTILIZE SUPPORT SYSTEM. PT NOT REALLY WISHING TO ENGAGE AT THIS TIME. WITHDRAWN TO SELF FOR MAJORITY OF DAY. PT IS ABLE TO IDENTIFY PROTECTIVE FACTORS AND MAKE SMALL TALK REGARDING THE WEATHER. WILL CONTINUE TO ENCOURAGE PT TO INTERACT WITH STAFF AND EXPRESS FEELING. WILL PROVIDE EMOTIONAL SUPPORT APPROPRIATE. WILL CONTINUE TO MONITOR Q15 MIN PER DR. BEAVER FOR SAFETY.
[2019-09-14 19:59] VITALS: BP 106/63
--- NOTE | 2019-09-14 21:52 | NUR ---
P--FEELING HOPELESS AND NO REASON TO LIVE I--EDUCATED ON MEDICATIONS. OFFERED 1:1 WHEN HE IS READY. EMOTIONAL SUPPORT PROVIDED. ENCOURAGED HIM TO SEEK OUT STAFF WHEN READY TO TALK. CONDOLENCES PROVIDED R--THANK YOU I AM JUST NOT READY TO TALK.. CONTRACTED FOR SAFETY. STATES DAY GOOD EXPECTED. P--MONITOR FOR CHANGES IN BEHAVIOR/MOOD. CONTINUE Q 15 MINUTE AND PRN SAFETY CHECKS. BE AVAILABLE TO TALK AT ANY TIME
--- NOTE | 2019-09-15 04:23 | NUR ---
24 HR chart check completed.
--- NOTE | 2019-09-15 06:09 | NUR ---
SLEPT WELL LAST NIGHT 8 HOURS
[2019-09-15 07:56] VITALS: BP 107/63
--- NOTE | 2019-09-15 17:20 | NUR ---
A&O X4. PT CONTRACTED FOR SAFETY. PT DID STATE HE WILL NOT DO ANYTHING WHILE AT THE HOSPITAL HOWEVER HE HAS A PLAN ALREADY IN PLACE AND STATED HE WOULD CUT HIS WRIST. PT INTERACTIVE WITH PEERS. NO ISOLATION NOTED. PT HAD A GOOD VISIT WITH . CONTINUE TO MONITOR BEHAVIORS WITH Q15 MINUTE SAFETY CHECKS. SEE [facility] FLOWSHEET FOR SPECIFIC MONITORING.
[2019-09-15 20:00] VITALS: BP 125/72
--- NOTE | 2019-09-15 21:57 | NUR ---
P--PARANOID, PERSECUTORY, HOPELESS/HELPLESS, DIFFICULTY TO REDIRECT I- DISCUSSED MEDICATIONS, DISCUSSED BANKRUPTCY FOR MOUNTING DEBTS, DISCUSSED OUTREACH PROGRAMS, SILVER SNEAKERS, ADULT DAYCARE, SITTING AT MALL PEOPLE WATCHING. STAYIN OUT OF ROOM AND ISOLATING SELF. REVIEWED IMPORTANCE OF THIS TO BRAIN AND FEELINGS. CLIENT FEELS EVERYTHING THAT HAS GONE WRONG IS HIS FAULT BUT OTHERS DID IT TO HIM R- MY SYNAGOGUE TURNED ITS BACK ON ME LAST TIME WHEN THEY FOUND OUT I ATTEMPTED SUICIDE DID MANY FRIENDS. SOME OF THEM WERE MY EX-WIVES FRIEND. I DIDN'T GET TO WATCH MY SON GROW UP MUCH BECAUSE OF HIS MOM. SHE TOOK OVER $300K OUT OF THE BANK WHEN SHE FILED FOR DIVORCE AND THE MANAGER EXPORT BASICALLY SAID "OH WELL. (THIS HAPPENED MANY MANY YEARS AGO AND HE REMAINS FIXATED ON IT) MY NEICE AND HER BOYFRIEND CAUSE 9K$ WORTH OF DAMAGE TO MY HOUSE AND I TOOK LOAN OUT AND FIXED IT AND SOLD IT ON LAND CONTRACT AND HE DID $38K OF DAMAGE AND LEFT. SEE I AM WORTHLESS AND THEY KEEP DOING THIS TO ME. EVEN GOT STIFFED $7K ON A CAR REPAIR ( HE DISCUSSED THIS LAST ADMISSION). I AM NOT STRONG ENOUGH TO WATCH MY IN MY ARMS. ALL THIS STUFF HAPPENS BECAUSE I AM WORTHLESS. I CAN'T GET OUT FROM UNDER ALL THESE LOANS. I WON'T DO ANYTHING IN HERE BUT WHEN I LEAVE.... P--TRIED TO REDIRECT CLIENT TO PROPER COPING TECHNIQUES, REINFORCE HIS IMPORTANCE TO HIS KIDS AND FRIENDS. MONITOR FOR CHANGES IN BEHAVIOR/MOOD. MONITOR Q 15 MINUTES AND PRN FOR SAFETY.
--- NOTE | 2019-09-16 02:56 | NUR ---
24 HR chart check completed.
[2019-09-16 07:44] VITALS: BP 123/71
--- NOTE | 2019-09-16 08:15 | NUR ---
Treatment Plan meeting was held with Dr. Odonnell, DEON Garcia, RN, AT, FRINGE KNOTTER-S and Case Advocate in attendance. Plan for discharge Monday. Pt. will return home with follow up appointments scheduled.
--- NOTE | 2019-09-16 11:02 | NUR ---
DR. SILVESTRE NOTIFIED OF PATIENT BEING DISCHARGED 09/17/19 IN EARLY AM.
--- NOTE | 2019-09-16 11:41 | NUR ---
AM GROUP PT ATTENDED MORNING GROUP THERAPY AND PARTICIPATED IN ALL ACITIVITIES. PT HAD A BRIGHTER AFFECT THIS MORNING COMPARED TO LAST WEEK. PT WAS TALKATIVE AND ON TASK. PT EXPRESSED NO SUICIDAL IDEATIONS WHILE IN GROUP
--- NOTE | 2019-09-16 14:45 | NUR ---
Met with pt individually during late morning. When asked how pt was feeling, pt responded, "I'm trying to be okay." Pt was tearful throughout meeting. Discussed pt attending his giselle Haywood's tomorrow. Pt stated that he doesn't think he can go because he doesn't believe that he could "hold it together." When asked, pt stated that he currently is feeling suicidal. Pt further stated that he could not guarantee that he would not harm himself if he were discharged for the . Pt then stated that he is upset with himself because he is weak and that he doesn't understand why other people can handle so much more than he. Empathized with pt and discussed this further. Assisted pt in recognizing his strengths. Pt continues to be very negative about himself. Discussed the possibility of Spravato as treatment for pt and provided him with information about this drug. Pt stated that he is willing to try anything and that it would be great if it works allowing him to feel hopeful again. Pt then stated, "But if it doesn't, then it's okay. I'm tired of pain and I'm tired of fighting. I'm okay if it is just over." At this point, pt's son Jose M here to visit with pt. Met with Jose M prior to him seeing pt and informed Jose M that pt voiced that he is not wanting to attend the . Jose M will meet with pt and then meet with this sports book writer to further discuss concerns.
--- NOTE | 2019-09-16 15:33 | NUR ---
PM GROUP PT DID NOT ATTEND AFTERNOON GROUP THERAPY. PT WAS IN BED RESTING.
--- NOTE | 2019-09-16 16:23 | NUR ---
PATIENT IS TO PERSON, PLACE, TIME AND SITUATION; ABLE TO VOICE NEEDS. MOOD IS DEPRESSED WITH IMPROVEMENT NOTED. PATIENT HAD VISIST WITH SON. DENIES ANY HALLUCINATIONS, DELUSIONS, HI/SI OR PAIN. MEDICATION COMPLAINT WITH EDUCATION. Q 15 MINUTE SAFETY CHECKS. INDEPENDENT WITH ACTIVITIES OF DAILY LIVING. CONTINENT OF BOWEL AND BLADDER, SET UP FOR MEALS, INTAKES ARE GOOD. PATIENT UTILIZING COPING SKILLS AND HAS PLANS ON RETURNING TO THERAPY SERVICES. CONTINUE TO MONITOR FOR SUICIDAL IDEATIONS. PATIENT CONTRACTED FOR SAFETY. PROVIDE ONE ON ONE FOR EMOTIONAL SUPPORT AND HELP PATIENT TO DEVELOP COPING SKILLS.
[2019-09-16] MEDS ORDERED: VITAMIN D5000 UNI1 PO (19:02)
[2019-09-16 19:58] VITALS: BP 124/81
--- NOTE | 2019-09-16 20:42 | NUR ---
EVENING GROUP/LEISURE SKILLS PT IN ATTENDANXCE AND PARTICIPATING BY COLORING A PICTURE AND SOCIALIZING WITH THIS DYE EXPERT AND PEERS. PT PLEASANT AND ON TASK OPENLY DISCUSSING MANY TOPICS. PT EXPRESSES NO S.I. OR ANXIETY AT THIS TIME. PT WILL CONTINUE TO ATTEND AN DPARTICIPATE IN FUTURE GROUP SESSIONS.
--- NOTE | 2019-09-16 22:00 | NUR ---
Patient is alert and oriented x4. Mood depressed but is improving. Patient is coloring on a paper and talking with other patients and staff. Patient denies any suicidal thoughts at this time. No hallucinations noted. Patient compliant with HS medications without any difficulty. Provided 1:1 for emotional support. Plan to continue to encourage medication compliance and interaction with staff and other patients. Also continue to provide emotional support. Will continue to monitor moods/behaviors. Q 15 minute safety checks continued and maintained. See [facility] flowsheet for further documentation.
--- NOTE | 2019-09-17 00:14 | NUR ---
24 HR chart check completed.
--- NOTE | 2019-09-17 05:42 | NUR ---
Patient slept approx. 6 hours throughout shift. Q 15 minute safety checks continued and maintained.
[2019-09-17 08:00] VITALS: BP 117/81
--- NOTE | 2019-09-17 08:00 | NUR ---
Treatment Plan meeting was held with Dr. Odonnell, DEON Garcia, RN, AT, MICA MACHINE OPERATOR-S and Medical Oncology Physician in attendance. Plan for discharge at the end of the week. Pt. to return home with family.
--- NOTE | 2019-09-17 10:03 | NUR ---
PRN TYLENOL 650MG PO GIVEN AT THIS TIME PER PT REQUEST FOR C/O BACK PAIN RATED LEVEL 9 OUT OF 10 ON PAIN SCALE. WILL MONITOR FOR MEDICATION EFFECTIVENESS.
--- NOTE | 2019-09-17 11:30 | NUR ---
AM GROUP PT ATTENDED MORNING GROUP THERAPY AND PARTICIPATED IN ALL ACTIVITIES. PT WAS TALKATIVE BUT ON TASK. PT EXPRESSED NO SUICIDAL IDEATIONS WHILE IN GROUP
--- NOTE | 2019-09-17 11:30 | NUR ---
TYLENOL EFFECTIVE. PT OFFERS NO FURTHER C/O PAIN AT THIS TIME.
--- NOTE | 2019-09-17 12:01 | NUR ---
PATIENT COMPLAINING OF BEING DIZZY AND BLURRED VISION. PATIENT IN HALLWAY AND ASSIST WITH CHAIR. SITTING VITALS: 97.2, 158/82, 50, 18, 100% RA, BP STANDING 152/[address] LEYVA NOTIFIED. RECHECK NOON VITALS AND GIVE ROUTINE MEDICATIONS. FREEMAN ASSISTED INTO DINING ROOM WITH ASSIST.
--- NOTE | 2019-09-17 12:14 | NUR ---
Late this AM, observed pt leaning on hallway wall with his head down while holding onto the railing. Went to pt who complained of dizziness and feeling lightheaded. Stayed with pt while alerting RN who was further away in the [place]. RNs came to assess pt.
[2019-09-17 12:16] VITALS: BP 145/83
--- NOTE | 2019-09-17 12:17 | NUR ---
Phoned the [employer] to confirm that the [facility] support group is still active. Spoke with Antonette who provided further details to the location. Gathered information from [employer] about support groups in [place] and in [place]. Spoke with pt's son Jose M and asked that Jose M attend at least the first support group with pt. Jose M stated that he would definitely plan on doing this with pt.
--- NOTE | 2019-09-17 15:37 | NUR ---
PM GROUP PT ATTENDED AFTERNOON GROUP THERAPY AND PARTICIPATED IN ALL ACTIVITIES. PT WAS ON TASK AND SOCIALABLE. PT EXPRESSED NO SUICIDAL IDEATIONS WHILE IN GROUP
--- NOTE | 2019-09-17 18:56 | NUR ---
PATIENT COMPLAINING OF FEELING LIGHT HEADED, WOOZY. ORTHRO BP'S LAYING DOWN:145/72, SITTIN/94 AND STANDIN/105. PATIENT INFORMED STAFF OF HAVING TILT TABLE TEST AND FAILED [address] CHRISTIANSEN NOTIFIED.
--- NOTE | 2019-09-17 19:02 | NUR ---
PATIENT IS ALERT TO PERSON, PLACE, TIME AND SITUATION;ABLE TO VOICE NEEDS. MOOD IS ANXIOUS, DEPRESSED, TEARFUL. CONTRACTED FOR SAFETY. DENIES ANY HALLUCINATIONS, DELUSIONS, HI/SI OR PAIN. MEDICATION COMPLIANT WITH EDUCATION PROVIDED. COMPLAINTS OF FEELING DIZZY. MEDICAL DOCTORS AWARE. INDEPENDENT WITH ACTIVITIES OF DAILY LIVING, CONTINENT OF BOWEL AND BLADDER, SET UP FOR MEALS, INTAKES ARE GOOD WITH ADEQUATE FLUIDS. Q 15 MINUTE SAFETY CHECKS MAINTAINED. CONTINUE TO MONITOR MOOD, VOICED THOUGHTS OF SI. PROVIDE ONE ON ONE FOR EMOTTIONAL SUPPORT AND ENCOURAGE TO USE COPING SKILLS.
[2019-09-17 20:00] VITALS: BP 138/58
--- NOTE | 2019-09-17 20:37 | NUR ---
EVENING GROUP/BINGO PT ATTENDED AND PARTICIPATED IN ALL GROUP ACTIVITY. PT QUIET AND ON TASK WITH NO S.I. EXPRESSED OR ANXIETY. PT WILL CONTINUE TO ATTEND AND PARTICIPATE IN FUTURE GROUP SESSIONS.
--- NOTE | 2019-09-17 21:48 | NUR ---
Patient is alert and oriented x4. Mood depressed but is improving. Patient interacting with staff and other patients during group therapy and snack time in diningroom. Patient denies any suicidal thoughts at this time. No hallucinations noted. Patient compliant with HS medications without any difficulty. Provided 1:1 for emotional support. Plan to continue to encourage medication compliance and more interaction with staff and other patients. Also continue to provide emotional support. Will continue to monitor moods/behaviors. Q 15 minute safety checks continued and maintained. See [facility] flowsheet for further documentation.
--- NOTE | 2019-09-18 00:07 | NUR ---
24 HR chart check completed.
--- NOTE | 2019-09-18 05:39 | NUR ---
Patient slept approx. 7 hours throughout shift. Q 15 minute safety checks continued and maintained.
[2019-09-18 08:00] VITALS: BP 126/80
--- NOTE | 2019-09-18 08:00 | NUR ---
Treatment Plan meeting was held with Dr. Odonnell, RN, AT, APPLICATION SECURITY DEVELOPER-S and Internet Project Manager in attendance. Plan for discharge Next week. Pt. will return home at discharge.
--- NOTE | 2019-09-18 08:47 | NUR ---
AND NABIL PMHNP-BC ON UNIT TO SEE PT AT THIS TIME. UPDATE GIVEN.
--- NOTE | 2019-09-18 09:50 | NUR ---
ON UNIT TO SEE PT AT THIS TIME. MADE AWARE PT INTERMITTENTLY COMPLAINING OF DIZZINESS. REVIEWED MEDICATIONS AND VITALS. MADE AWARE DISCONTINUED ROUTINE VISTARIL. STATES HE MAY ADJUST LISINOPRIL. NNO RECIEVED AT THIS TIME.
--- NOTE | 2019-09-18 11:56 | NUR ---
AM GROUP PT ATTENDED MORNING GROUP THERAPY AND PARTICIPATED IN ALL ACTIVITIES. PT WAS QUIET AND ON TASK. PT EXPRESSED NO SUICIDAL IDEATIONS WHILE IN GROUP.
--- NOTE | 2019-09-18 13:05 | NUR ---
Met with pt for individual session this AM. Pt was tearful throughout most of session. When asked if pt was currently suicidal, pt stated that he didn't know how he would be if he were to discharge today. He stated that at the moment he was not suicidal but that it was "still right there." Pt spoke of feeling guilty because he was not able to be supportive to his at her son's yesterday. Discussed this further. Assisted pt in recognizing that his current struggle with depression is a true illness just as if pt were in the hospital for a physical illness. Validated to pt that his current weakness is related to his illness just as if his body were weak due to a surgery. Discussed pt's tendency to be hard on himself and to ruminate on what he feels are bad decisions. Discussed self-forgiveness and educated pt about this. Pt stated that he can logically understand this concept but that he cannot accept this emotionally for himself. 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 Discussed healing from his childhood. Requested that pt begin journaling again, as pt did confirm that this helped him during his last stay. Also, encouraged pt to write a letter to the child that he once was. Discussed the loss of his giselle Haywood and discussed grief. Encouraged pt to feel the emotions of the loss as they came to him. Discussed how one must experience the grief in order to heal. Discussed previous times when pt grieved. Also informed pt of the Alzheimer support group within his vicinity and that pt's son Jose M confirmed that he would go with pt to the support group. Pt vascilates between hopelessness for his future and voicing plans for his future.
--- NOTE | 2019-09-18 13:34 | NUR ---
Met with pt's Apryl and stepdaughter Daniella. Discussed their visit with pt today. Discussed discharge plan.
[2019-09-18 19:33] VITALS: BP 124/82
--- NOTE | 2019-09-18 20:50 | NUR ---
P--DEPRESSION, HOPELESS/HELPLESS, GRIEF I--1:1 TO ALLOW CLIENT TO VERBALIZE NEEDS AND THOUGHTS. DISCUSSED PAST TALKS WE HAVE HAD, ENCOURAGED HIM TO SEEK OUT STAFF IF HE NEEDS TO TALK. EMOTIONAL SUPPORT PROVIDED. MEDICATION PROVIDED PER ORDERS R--I FEEL BETTER TODAY. STILL A LITTLE FOGGY ABOUT THINGS. NOT SURE WHAT I NEED TO DO
--- NOTE | 2019-09-19 01:51 | NUR ---
24 HR chart check completed.
--- NOTE | 2019-09-19 06:38 | NUR ---
SLEPT WELL ALL NIGHT. CURRENTLLY UP IN DININGROOM WRITING IN JOURNAL
[2019-09-19 08:00] VITALS: BP 119/73
--- NOTE | 2019-09-19 09:00 | NUR ---
Treatment Plan meeting was held with Dr. Odonnell, RN, AT, AERIAL PLANTING AND CULTIVATION MANAGER-S and Wedding Designer in attendance. Plan for discharge next week. Pt. will return home at discharge.
--- NOTE | 2019-09-19 10:07 | NUR ---
DR BARRERA ON UNIT TO ASSESS PT, UPDATE PROVIDED.
--- NOTE | 2019-09-19 11:40 | NUR ---
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 PT CONTRIBUTED TO THE DISCUSSION WITH INSIGHT AND RELAVENCE TO THE TOPIC. PT EXPRESSED NO SUICIDAL IDEATIONS WHILE IN GROUP. PT WAS RELAXED AND ENGAGED.
--- NOTE | 2019-09-19 15:43 | NUR ---
PM GROUP/FINGER PAINTING PT ATTENDED AFTERNOON GROUP THERAPY AND PARTICIPATED IN ALL ACTIVITIES. PT WAS ENGAGED AND TALKATIVE. PT EXPRESSED NO SUICIDAL IDEATIONS WHILE IN GROUP. PT WAS CALM AND ON TASK.
--- NOTE | 2019-09-19 15:49 | NUR ---
PT STATES HE FEELS ABOUT THE SAME WHEN HE ARRIVED. PT GIVEN MEDICATION INFORMATION, NOTED TO BE IN DINING ROOM READING PROVIDED EDUCATION. PT ALSO NOTED TO BE JOURNALING T/O SHIFT. DENIES SI WHILE HERE, VERBALLY CONTRACTS FOR SAFETY.
[2019-09-19 19:45] VITALS: BP 117/75
--- NOTE | 2019-09-20 03:27 | NUR ---
24 HR chart check completed.
--- NOTE | 2019-09-20 06:02 | NUR ---
SLEPT APPROX 9 INTERUPTED HOURS
[2019-09-20 07:48] VITALS: BP 125/81
--- NOTE | 2019-09-20 07:59 | NUR ---
Patient eating quietly with no c/o discomfort. Respirations easy and regular. Vital signs stable. No overt distress. CISCO DUNCAN
--- NOTE | 2019-09-20 09:39 | NUR ---
PT GIVEN TYLENOL FOR C/O MIGRAINE. PT WENT BACK TO ROOM TO REST IN DARK PLACE. WILL MONITOR FOR EFFECTIVENESS.
--- NOTE | 2019-09-20 11:08 | NUR ---
Treatment Plan meeting was held with DEON Garcia RN, AT, WELT DRAWER-S and Management Rep in attendance. Plan for discharge next week. Plan remains for pt. to return home at discharge.
--- NOTE | 2019-09-20 11:16 | NUR ---
PT STATES PRN TYLENOL EFFECTIVE.
--- NOTE | 2019-09-20 11:36 | NUR ---
AM GROUP PT DID NOT ATTEND MORNING GROUP THERAPY. PT WAS IN BED RESTING.
--- NOTE | 2019-09-20 13:21 | NUR ---
PHYSICAL THERAPY Chart reviewed pt from home spoke with [facility] staff/nsg pt is ambulatory on unit with no AD, gait has been steady and no issues noted regarding impaired balance or safety. Will discontinue PT orders as pt is at baseline please reconsult therapy if status changes thank you Tanya Lindsey PT
--- NOTE | 2019-09-20 15:26 | NUR ---
Individual session with pt this afternoon. Pt shared his journaling which was then discussed. Pt also wrote about his childhood, as this scientific writer had requested. Pt stated that this helped him tremendously to recognize that his childhood was not entirely bad. Pt stated that good memories surfaced as he was writing. Discussed this further. Pt stated that this exercise made him think about an assignment that his counselor Daina Alegre PhD [facility] had asked him to do, which pt never did. That assignment was to write a letter to his parents. Pt decided to do that and is currently working on that letter. Pt showed this scientific writer what he had written to this point and this was also discussed. Pt stated that today he is feeling better than when he discharged for [facility] the last time. Pt is encouraged by this but also expressed fear that this won't last. Discussed this further and offered to pt that his healing from depression is a journey. Pt was able to verbalize his own analogy of his journey. Discussed pt's biggest fear which is his 's worsening dementia. Discussed the benefits of connecting to an Alzheimer's support group. 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 With each topic, pt was able to voice a positive about his experience. Pt was more animated in coversation. He was able to smile and laugh appropriately. He is currently denying suicidal ideations and is voicing hope for his future as he is speaking of plans for when he is discharged.
[2019-09-20 20:00] VITALS: BP 128/74
--- NOTE | 2019-09-21 01:45 | NUR ---
NO ADVERSE BEHAVIORS NOTED. PATIENT ALERT AND ORIENTED X4. MOOD STABLE. PT CALM, COOPERATIVE, AND INTERACTIVE. PT SAT IN DINING ROOM FOR HS SNACK AND TALKED WITH PEERS. PT MEDICATION COMPLIANT WITHOUT DIFFICULTY AFTER REVIEW. PT DENIES SI/HI, CONTRACTS FOR SAFETY. PT ALSO DENIES HALLUCINATIONS, NO NOTED RESPONDING TO INTERNAL STIMULI. NO PARANOIA/DELUSIONS NOTED. PT AMBULATORY THROUGHOUT UNIT WITH STEADY GAIT, INDEPENDENT IN ADLS, ABLE TO VOICE NEEDS. NO PHYSICAL COMPLAINTS VOICED. PT CURRENTLY LAYING DOWN WITH EYES CLOSED, RESPIRATIONS EASY AND REGULAR, NO SIGNS OR SYMPTOMS OF DISTRESS NOTED. PLAN IS TO CONTINUE TO MONITOR MOOD AND BEHAVIORS. PROVIDE 1:1 WITH THERAPEUTIC INTERVENTIONS. ENCOURAGE MEDICATION COMPLIANCE AND EDUCATE. MAINTAIN Q 15 MIN CHECKS.
--- NOTE | 2019-09-21 06:07 | NUR ---
PATIENT OBSERVED ON Q 15 MIN CHECKS TO HAVE SLEPT APPROX 6 HOURS WITH SHIFT UNINTERRUPTED WITH NO AWAKENINGS OR SIGNS AND SYMPTOMS OF DISTRESS NOTED.
[2019-09-21 07:40] VITALS: BP 122/76
--- NOTE | 2019-09-21 11:44 | NUR ---
AM GROUP/PAM! PT ATTENDED AND PARTICIPATED IN ALL GROUP ACTIVITY. PT APPEARS TO BE PLEASANT WITH NO EXPRESSIONS OF S.I. OR ANXIETY AT THIS TIME. PT WILL CONTINUE TO ATTEND AN DPARTICIPATE IN FUTRUE GROUP SESSIONS.
--- NOTE | 2019-09-21 15:29 | NUR ---
PT A&O X4. DENIES HALLUCINATIONS AND DELUSIONS. PT ALSO DENIED SI/HI. VERBALLY CONTRACTED FOR SAFETY. PT STATED "YESTERDAY AND TODAY HAVE BEEN MY BEST DAYS IN A WHILE". PT DENIES WANTING TO HARM SELF WHEN HE LEAVES. ORGANIZED AND GOAL DIRECTED. MEDICATION COMPLIANT. MEDICATION EDUCATION PROVIDED. NO ADVERSE MOODS OR BEHAVIORS NOTED. SEE [facility] FLOWSHEET FOR SPECIFIC MONITORING.
--- NOTE | 2019-09-21 15:53 | NUR ---
PM GROUP/ART/GAME PT ATTENDED AND PARTICIPATED IN ALL GROUP ACTIVITY. PT PLEASANT AND ON TASK WITH NO S.I. OR ANXIETY EXPRESSED. PT SMILING AND JOKING ENTIRE GROUP AND WILL COBNTINUE TO ATTEND AN DPARTICIPATEIN FUTURE GROUP SESSIONS.
[2019-09-21 20:00] VITALS: BP 142/84
--- NOTE | 2019-09-22 03:31 | NUR ---
P-DEPRESSED MOOD, SUICIDAL IDEATIONS. I-PROVIDED 1:1 WITH THERAPEUTIC INTERVENTIONS. PROVIDED SUPPORT. ENCOURAGED PT TO SEEK OUT STAFF IF HE NEEDS TO TALK, CONTRACTED FOR SAFETY. ENCOURAGED MEDICATION COMPLIANCE AND EDUCATED. MONITOR SLEEP. R- "I WAS FEELING BETTER BUT IM FEELING MORE DOWN TODAY". PT GUARDED DURING 1:1, STATED THAT HE IS HAVING SUICIDAL THOUGHTS AND ALTHOUGH HE DOES WANT TO HURT HIMSELF HERE HE DOES HAVE A PLAN FOR WHEN HE DOES GO HOME. PT WOULD NOT ELABORATE WITH THIS NURSE TO WHAT THAT PLAN IS AND STATED "I DONT WANT TO TALK ABOUT IT, IM SORRY". PT CONTRACTED FOR SAFETY AND VERBALIZED THAT HE WOULD SEEK OUT STAFF IF THOUGHTS ARISE TO HARM SELF OR OTHERS. NO SELF INJURIOUS BEHAVIORS OBSERVED. PT MEDICATION COMPLIANT WITHOUT DIFFICULTY AFTER REVIEW. PT DENIES HI, HALLUCINATIONS OR PAIN. PT INDEPENDENT IN ADL'S, AMBULATORY WITH STEADY GAIT, CONTINENT OF BOWEL AND BLADDER. NO SIGNS OR SYMPTOMS OF DISTRESS NOTED. P-CONTINUE TO MONITOR MOOD AND BEHAVIORS. PROVIDE SUPPORT WITH 1:1 AND CONTRACT FOR SAFETY. ENCOURAGE MEDICATION COMPLIANCE AND EDUCATE. MAINTAIN Q 15 MIN SAFETY CHECKS.
--- NOTE | 2019-09-22 05:22 | NUR ---
24 HOUR CHART CHECK COMPLETED.
--- NOTE | 2019-09-22 06:34 | NUR ---
PATIENT OBSERVED ON Q 15 MIN SAFETY CHECKS TO HAVE SLEPT APPROX 8 HOURS WITH NO AWAKENINGS OR SIGNS OR SYMPTOMS OF DISTRESS NOTED.
[2019-09-22 07:59] VITALS: BP 108/74
--- NOTE | 2019-09-22 12:05 | NUR ---
AM GROUP/EXERCISE/STORY/ART PT ATTENDED AND PARTICIPATED IN ALL GROUP ACTIVITY. PT PLEASANT AND ON TASK WITH NO S.I. OR ANXIETY EXPRESSED. PT WILL CONTINUE TO ATTEND AND PARTICIPATE IN FUTURE GROUP SESSIONS.
--- NOTE | 2019-09-22 15:34 | NUR ---
PT A&O X4. DENIES HALLUCINATIONS AND DELUSIONS. PT ALSO DENIED SI/HI. VERBALLY CONTRACTED FOR SAFETY. ORGANIZED AND GOAL DIRECTED. MEDICATION COMPLIANT. MEDICATION EDUCATION PROVIDED. NO ADVERSE MOODS OR BEHAVIORS NOTED. SEE [facility] FLOWSHEET FOR SPECIFIC MONITORING. PT INTERACTIVE WITH PEERS AND STAFF.
[2019-09-22 19:54] VITALS: BP 115/82
--- NOTE | 2019-09-23 01:57 | NUR ---
P: DEPRESSED, HOPELESS, SUICIDAL IDEATION, I: SPOKE WITH PT IN LENGTH IN REFERENCE TO SPOUSE, ABOUT IF HE HAS RESOLVED ANY OF HIS CONCERNS WHILE HERE. SPOKE ABOUT MAKING LISTS AND APPROACHING THINGS IN SMALL STEPS TO MAKE THEM EASIER TO HANDLE. R: PT CONTINUES TO BE WEEPY AT TIMES WITH CONVERSATIONS, HE MADE NO NEGATIVE STATEMENTS OF ATTEMPTING TO HURT HIMSELF, PT STATED IT WAS FRUSTRATING WORKING YOUR WHOLE LIFE JUST TO LOSE IT ALL IN THE END. WHEN ASKED ABOUT ADDRESSING PROBLEMS IN SMALL AMOUNTS, PT CONTINUED TO BRING UP ISSUES IN A HOPELESS MANNER IF HE COULDN'T ACCEPT A SOLUTION TO ANY OF HIS ISSUES. CONTIUE TO ENCOURAGE PT TO COMMUNICATE WITH STAFF, AT TIMES DURING INTERACTION HE WOULD NOT MEET THIS NURSES EYES LOOKING DOWN OR AWAY. P: CONTINUE TO CONTRACT FOR SAFETY, MONITOR FOR SI/HI OR DELUSIONS, EDUCATE ON COPING SKILLS, PROVIDE EMOTIONAL SUPPORT, ENCOURAGEMENT AND INTERACTION WITH STAFF NEEDED. PT SLEEPING WELL AT THIS TIME.
--- NOTE | 2019-09-23 05:26 | NUR ---
PT SLEPT 8+ HOURS 24 HR chart check completed.
--- NOTE | 2019-09-23 08:00 | NUR ---
Treatment Plan meeting was held with DEON Garcia, RN, AT, CLINICAL COURIER-S and Manager Assessment in attendance. Plan for discharge Monday with return home and follow up appointments scheduled. Pt. will attend [facility] at discharge.
[2019-09-23 08:30] VITALS: BP 112/70
--- NOTE | 2019-09-23 09:00 | NUR ---
Faxed Clinical Updates and Referral to [facility].
--- NOTE | 2019-09-23 11:44 | NUR ---
AM GROUP PT ATTENDED MORNING GROUP THERAPY WHICH WAS GEARED MORE TOWARD THOSE COGNITIVELY ABLE TO PARTICIPATE. GROUP DISCUSSED WAYS TO "DE STRESS" IN STRESSFUL SITUATIONS. PT WAS ENGAGED AND PARTICIPATED IN THE CONVERSATION IN A RELEVENT WAY. PT EXPRESSED NO SUICIDAL IDEATIONS OR ANXIOUS THOUGHTS WHILE IN GROUP.
--- NOTE | 2019-09-23 14:39 | NUR ---
Met with pt for individual session today. Pt reports that he is not feeling as well as he did 2 days ago but continues to feel better than when he was first admitted. When asked if pt is having suicidal ideations, pt shook his head no and replied, "No, not right now. They are still there at times but not right now." Discussed pt discharging soon and concerns that pt has about "things needing dealt with." Problem solved with pt. Provided pt with two elder care attorneys contact info. Spoke to pt about possible future needs of pt's Apryl who has dementia. Provided pt with contact information for [facility] and educated pt about the services that are available such as Passport and the Waiver program for ALs. Educated pt about Medicare, Medicaid, [place] memory care units, SNFs, and LTC dementia units. Discussed pt's discharge plan. Informed pt that this sheet writer had spoken to Gaby at [facility] and learned that the [facility] authorization could take an additional week or more. Tentative plan is for pt to discharge home and attend [facility] in [place], have follow-ups at [facility] for psychiatry and counseling, and to attend a dementia support group. Pt was pleasant throughout session. He was tearful intermittently but the tearfulness was for a short time. Pt is future-oriented as he discussed plans for his future. Pt voices that his biggest fear is the worsening of Apryl's dementia. Pt recognizes that he needs support for this and is very interested in the dementia support group. Pt is voicing that he wants to feel better and be strong for his Apryl.
--- NOTE | 2019-09-23 15:48 | NUR ---
Call placed to [facility] and Spoke with Hafsa to notify that patient will discharge tommorow and start at [facility] on Monday.
--- NOTE | 2019-09-23 15:53 | NUR ---
PM GROUP PT WAS PRESENT FOR AFTERNOON GROUP THERAPY AND PARTICIPATED IN ALL ACTIVITIES. PT WAS ENGAGED AND ON TASK. PT EXPRESSED NO SUICIDAL IDEATIONS WHILE IN GROUP.
[2019-09-23 19:40] VITALS: BP 119/79
--- NOTE | 2019-09-23 20:58 | NUR ---
EVENING GROUP/MLK DISCUSSION PT ATTENDED AND PARTICIPATED IN ALL GROUP DISCUSSION. PT PLEASANT AND ON TASK WITH NO S.I. OR ANXIETY EXPRESSED AT THIS TIME. PT WILL CONTINUET O ATTEND AND PARTICIPATE IN FUTURE GROUP SESSIONS.
--- NOTE | 2019-09-24 03:27 | NUR ---
PT INTERACTING WITH GROUP AT BEGINGING OF SHIFT, LAUGHING SMILING APPROPRIATELY. REPORTS NO SI TO THIS NURSE WHEN ASKED, PT RETIRED TO BED AFTER MEDICATIONS STATING HE WAS TIRED FROM THE DAY. STATED HE FEELS LIKE HE IS GETTING ANSWERS AT THIS TIME. PT HAS BEEN SLEEPING WITHOUT DIFFICULTY THIS SHIFT. NO DELUSIONS NOTED
--- NOTE | 2019-09-24 06:38 | NUR ---
7+ HOURS OF SLEEP 24 HR chart check completed.
[2019-09-24 07:51] VITALS: BP 111/66
--- NOTE | 2019-09-24 08:00 | NUR ---
Patient sitting quietly with no c/o discomfort. Respirations easy and regular. Vital signs stable. No overt distress. CISCO DUNCAN
--- NOTE | 2019-09-24 08:00 | NUR ---
Treatment Plan meeting was held with Dr. Odonnell, DEON Garcia, RN, AT, PROCUREMENT FORESTER-S and Industrial Hygenist in attendance. Plan for discharge today with return home. Follow up appointments have been made. Pt. will follow with [facility] and will start Tommorow.
[2019-09-24] MEDS ORDERED: LORAZEPAM0.5 MG PO (10:04)
[2019-09-24] MEDS ORDERED: OLANZAPINE5 MG PO (10:04)
[2019-09-24] MEDS ORDERED: MIRTAZAPINE15 M2 PO (10:04)
--- NOTE | 2019-09-24 11:46 | NUR ---
AM GROUP/WORRY BEADS PT ATTENDED MORNING GROUP THERAPY AND PARTICIPATED IN ALL ACITIVITIES. PT WAS FOCUSED, TALKATIVE AND ON TASK. PT EXPRESSED NO SUICIDAL IDEATIONS WHILE IN GROUP. PT IS SET TO BE DISCHARGED FROM THE UNIT TODAY.
--- NOTE | 2019-09-24 12:15 | NUR ---
DISCHARGE PAPERWORK REVIEWED WITH MEDICATIONS. PT ENCOURAGED TO VERBALIZE FEELINGS ABOUT DISCHARGE, PT STATES THAT HE IS EXCITED TO TRY THE [facility] D/T EVERYTHING HE HAS BEEN EDUCATED ABOUT IT AND EVERYTHING HE HAS READ ABOUT IT. PT STATES THAT IF HE SHOULD FIND HIMSELF IN A CRISIS THAT HE IS GOING TO CALL 911 OR COME TO THE EMERGENCY ROOM. PT VERBALLY CONTRACTS FOR SAFETY AND STATES THAT HE WILL NOT HARM HIMSELF AFTER DISCHARGE. PT IS CALM AT THIS TIME.
--- NOTE | 2019-09-24 12:55 | NUR ---
PT'S AND STEP-DAUGHTER HERE AT THIS TIME. ALL BELONGINGS AND DISCHARGE PAPERWORK SENT WITH PT AT THIS TIME. PT DISCHARGED OFF UNIT VIA W/C, [facility]IEU AND [employer]YBEAN GROWER, WELL 3 FAMILY MEMBERS.
--- NOTE | 2019-09-24 13:07 | NUR ---
Discharge Paperwork Faxed to [facility], [facility], [facility] and Dr. Acosta office.
--- NOTE | 2019-09-24 14:54 | NUR ---
Met with pt individually prior to pt's discharge. Pt denies suicidal ideations. Pt stated that he is looking forward to returning home and that for the first time in a long time, pt feels motivated to take care of things. Pt stated, "I feel more like me." Discussed safety plan should pt feel overwhelmed again with thoughts of self-harm. Pt stated that he first would plan on using tools that he has learned from being in [facility], the [facility], and from Avery Alegre PhD, pt's counselor. If he was still struggling, pt stated that he would call 911. Discussed transitioning to home. Confirmed plan for connecting with dementia support group and contacting [facility] for assessment. Prior to pt leaving, met with pt's son Jose M and pt's stepdaughter Daniella Lua. Informed them of the resources that this financial writer had provided to pt. Discussed being observant of pt and his behaviors. Discussed pt's discharge appointments/follow-ups.
--- NOTE | 2019-09-24 15:03 | NUR ---
Patient discharged to home today with his Apryl. Pt's stepdaugter Daniella Lua will also be staying in the home for a few days. Follow-up was scheduled at [facility]. Pt will also be attending the IOP at [facility] [place]. While at [facility], pt's mood improved. Pt denied suicidal ideations at time of discharge. Pt was motivated for improvement to his mood and participated in group activities and individual counseling. Confirmed with pt's son Jose M prior to discharge that all guns were removed from pt's home.
== END 2019-09-24 12:55 | disposition home or self-care (01) | DRG 885 ==
LOC: 3N 16:05
PROVIDERS: ADMIT Psychiatry & Neurology Psychiatry
DX: F33.2 Major depressive disorder, recurrent severe without psychotic features (principal); R45.851 Suicidal ideations; I10 Essential (primary) hypertension; E55.9 Vitamin D deficiency, unspecified; F41.9 Anxiety disorder, unspecified; R00.1 Bradycardia, unspecified; E66.3 Overweight; E87.8 Other disorders of electrolyte and fluid balance, not elsewhere classified; M19.90 Unspecified osteoarthritis, unspecified site; F34.1 Dysthymic disorder; Z90.49 Acquired absence of other specified parts of digestive tract; Z82.49 Family history of ischemic heart disease and other diseases of the circulatory system; Z79.899 Other long term (current) drug therapy; Z68.25 Body mass index [BMI] 25.0-25.9, adult

== ENCOUNTER 2020-02-24 20:50 | Inpatient (IN) | payer MEDICARE ==
[~2020-02-24] VITALS: Ht 175.2 cm; Wt 81.6 kg
[~2020-02-24 20:50] MED LIST changes: +CYMBALTA60 MG PO; +LORAZEPAM0.5 MG PO; +OLANZAPINE5 MG PO; +VITAMIN D5000 UNI1 PO; +WELLBUTRIN XL150 MG PO; +ZESTRIL40 MG PO
--- NOTE | 2020-02-24 21:23 | NUR ---
VONDA DWYER a 64 year old M admitted via stretcher from the ADMITTING as a emergency 72 hr. hold admission. Arrived on unit at 2122. ALLERGIES: NKA. Vital signs are: [id number]/84 . THE CLIENT WAS UNABLE TO SIGN THE FOLLOWING FORM: CONSENT TO VOLUNTARY ADMISSION AND HOSPITALIZATION. The client signed the following forms with stated understanding: Authorization For The Release of Medical Information, Clothing List, Consent and Release Forms/Receipt of Rights, Acknowledgement of Advance Directive Information, Behavioral Health Consent Form, and Informed Consent of Medications. Admitted under the services of VONDA Mcdonough MD. A search was conducted and hazardous articles were removed. Client was oriented to the unit. ANDI CERNA
--- NOTE | 2020-02-24 21:55 | NUR ---
DR BOWDEN UPDATED ABOUT ADMISSION TO UNIT. PATIENT UNDER DR BARFIELD FOR MEDICAL MANAGEMENT
[2020-02-24 22:20] VITALS: BP 158/84
[2020-02-24 22:24] VITALS: BP 158/84
--- NOTE | 2020-02-24 22:50 | NUR ---
ADMISSION COMPLETE. PT ENDORSES SUICIDAL IDEATION ALL DAY, EVERY DAY. PT STATES IT IS NOT A MATTER OF "IF" BUT "WHEN". SINCE LAST DISCHARGE, PT STATES THAT MANY THINGS HAVE GOTTEN WORSE IN HIS LIFE. STRESSORS INCLUDE THE LOSS OF 5 CLOSE FRIENDS/FAMILY MEMBERS, AND THE ADDITIONAL RECENT CANCER DX OF ANOTHER CLOSE FRIEND. PT STATES HIS FINANCIAL SITUATION IS NO BETTER, COVID-19 MADE IT DIFFICULT FOR HIM TO GET WHAT HE NEEDS TO DO HIS JOB. PT STATES HIS IS CONTINUING TO DECLINE COGNITIVELY BUT OFTEN HYSTERICALLY CRIES OVER THE LOSS OF HER SON. STATES THAT IT HAS BEEN THE BETTER PART OF A YEAR SINCE SHE HAS INITIATED ANY PHYSICAL CONNECTION WITH HIM INCLUDING HUGS/KISSES. PT HAS STATED THAT HE DOES NOT WISH TO ATTEND ANY FOLLOW UP APPOINTMENTS AT THIS TIME D/T FEELINGS OF DISAPPOINTMENT WITH HIS IOP IN [place]. PT STATES THAT THEY "DROPPED THEIR PATIENTS AND QUIT CARING ABOUT ALL OF US" WHEN COVID-19 WAS A MAJOR ISSUE. STATES THAT HE HAS NOT TAKEN ANY PSYCH MEDICATIONS SINCE OCTOBER BECAUSE OF THIS. STATES THAT HIS MENTAL HEALTH PROVIDER TRIED TELEHEALTH BUT PATIENT DID NOT FIND IT HELPFUL AT ALL. PT STATES THAT HE DOES HAVE ONE GUN IN HIS POSESSION OF WHICH HE WILL NOT DISCLOSE THE LOCATION. STATES HE FEELS HOPELESS AND HAS NO WILL TO LIVE AT ALL. PROTECTIVE FACTORS INCLUDE AND SON BUT PATIENT ONLY WANTS TO BE AT [facility] AND DOES NOT SEE ANY OTHER WAY TO FEEL IT EXCEPT THROUGH . PT VERBALLY CONTRACTS FOR SAFETY WHILE HOSPITALIZED, STATING THAT HE WOULD NEVER DO ANYTHING WHILE ON THE UNIT. STATES "WHEN I DO DECIDE TO END IT ALL, IT WILL BE A PRIVATE THING". DR. BEAVER MADE AWARE OF ABOVE. STATES THAT ROUTINE 15 MIN CHECKS ARE APPROPRIATE AT THIS TIME. SECOND RN WITNESS.
--- NOTE | 2020-02-25 00:05 | NUR ---
DR BOWDEN ON UNIT TO SEE PATIENT
--- NOTE | 2020-02-25 05:54 | NUR ---
PT SLEPT 6 HOURS THIS SHIFT
[2020-02-25 06:37] LABS: BASO # 0.1 10*3/uL (0.0-0.1); BASO % 0.7 % (0.0-1.0); EOS # 0.1 10*3/uL (0.0-0.4); EOS % 1.3 % (1.0-4.0); HEMATOCRIT 49.4 % (42.0-52.0); LYMPH # 2.5 10*3/uL (1.3-4.4); LYMPH % 35.8 % (27.0-41.0); MEAN PLATELET VOLUME 9.6 fl (9.6-12.3); MONO # 0.6 10*3/uL (0.1-1.0); MONO % 8.1 % (3.0-9.0); NEUT # 3.8 10*3/uL (2.3-7.9); NEUT % 53.8 % (47.0-73.0); PLATELET COUNT AUTOMATED 261 10*3/uL (130-400); RED BLOOD COUNT 5.43 10*6/uL (4.50-5.90); RED CELL DISTRI WIDTH 13.3 % (0-14.5); WHITE BLOOD COUNT 7.1 10*3/uL (4.8-10.8)
[2020-02-25 06:59] LABS: ALBUMIN 3.6 gm/dl (3.1-4.5); ALKALINE PHOSPHATASE 108 U/L (45-117); BUN 11 mg/dl (7-24); CHLORIDE 107 mmol/L (98-107); CHOLESTEROL 203 mg/dL (<200); CREATININE 1.09 mg/dL (0.70-1.30); HDL CHOLESTEROL 38 mg/dl (40-60); LDL CHOLESTEROL 140 mg/dL (9-159); POTASSIUM 4.6 mmol/L (3.5-5.1); SGOT/AST 16 IU/L (3-35); SGPT/ALT 30 U/L (12-78); SODIUM 140 mmol/L (136-145); TOTAL PROTEIN 7.5 gm/dL (6.4-8.2); TRIGLYCERIDES 127 mg/dl (<150); VLDL CHOLESTEROL 25 mg/dL (6-40)
[2020-02-25 07:54] VITALS: BP 116/72
[2020-02-25 08:54] LABS: VITAMIN D, 25-HYDROXY 31.9 ng/mL (30-100)
--- NOTE | 2020-02-25 09:45 | NUR ---
DR PIERCE ON THE UNIT TO ASSESS PT.
--- NOTE | 2020-02-25 11:06 | NUR ---
DAYLIGHT SKIN ASSESSMENT 02/25/20 Completed by this RN and 2nd RN SHIVA.[email or web address]: Pt refused to allow nursing to complete full head to toe skin assessment.
--- NOTE | 2020-02-25 11:12 | NUR ---
DR PIERCE ON THE UNIT TO ASSESS PT.
--- NOTE | 2020-02-25 11:20 | NUR ---
Treatment Plan meeting was held this a.m. with Dr. Odonnell on the telephone, LAUNDRY ROUTE DRIVER Radha, RN, AT, MOP MAN-S and Saddle Stitcher in attendance. Plan for discharge Next Week. Pt. will return home at discharge.
--- NOTE | 2020-02-25 11:49 | NUR ---
AM GROUP PT CHOSE NOT TO ATTEND MORNING GROUP THERAPY. PT WENT TO HIS ROOM TO REST.
--- NOTE | 2020-02-25 11:51 | NUR ---
1:1 AND ASSESSMENT SPENT A CONSIDERABLE AMOUNT OF TIME WITH PT THIS MORNING LISTENING AND COMPLETING ASSESSMENT. PT WAS OFTEN TEARY EYED. PT STATED, "I AM DISAPPOINTED IN MYSELF. I MADE THE MISTAKE OF GIVING AWAY MY PLANS. IT IS NO LONGER IF I WILL KILL MYSELF, BUT WHEN" PT COULD GLEAN NO HOPE IN HIS THERAPY OR MEDICATIONS. PT STATED, "I DON'T WANT TO BE HERE. I WILL JUMP THROUGH THE HOOPS WHILE I'M HERE, BUT WHEN I GET OUT I WILL FOLLOW THROUGH WITH MY PLANS. (TO KILL MYSELF), I EVEN HAVE A LETTER IN MY TRUCK FOR MY AND SON. HOPEFULLY THEY WILL UNDERSTAND THAT THIS ISN'T THEIR FAULT."
--- NOTE | 2020-02-25 14:08 | NUR ---
GROUP A PT WAS PRESENT FOR GROUP THERAPY AND PARTICIPATED BY WATCHING THE MOVIE. PT DECLINED ANY OTHER OFFERED ACTIVITY.PT EXPRESSED NO SUICIDAL IDEATIONS WHILE IN THE DAYROOM
--- NOTE | 2020-02-25 14:43 | NUR ---
Extensive time spent with pt individually this AM-early afternoon. Discussed events in pt's life since pt's last [facility] admission. Patient voicing that he doesn't want to be here and that he greatly regrets his call to Crisis when pt was contemplating by gunshot. Empathized with pt and offered support as this poem writer allowed pt to voice his frustration. Discussed pt being without medications since 10/24 and pt's feelings of abandonment by the [facility] and [facility] because the program was stopped abruptly due to COVID. This poem writer continued to offer support and empathy. Pt described the "wonderful peace" that he felt when he had decided to shoot himself. Discussed this further. Pt also spoke of the deep pain that he feels from recent losses of friends, his stepson, and the progression of his 's dementia. Pt continued that the pain never leaves him except for brief moments when he is with his son Jose M, times with his dog Bryce, or good moments with his when she is having a better day. This poem writer challenged pt that pt has not been truthful about sources of pt's emotional pain. Pt stated that this is true and that there are things from his past that he has shared with no one. Explained to pt that in order to have emotional healing, pt needs to be truthful with his counselor. Pt stated that he didn't know if he could do that. Discussed this further. Pt also shared that he did not care for the telehealth counseling and has decided that he would not return to [facility]. Educated pt about EMDR as a therapeutic approach for trauma. Discussed the trauma that pt has shared with this poem writer. Pt continues to voice that he is hopeless but agreeable for this poem writer to research EMDR options for pt as pt stated, "What do I have to lose at this point?" Pt was tearful at different times during session. He reports to feeling suicidal but does contract for safety while at [facility]. Pt voiced feelings of hopelessness and helplessness. Pt also stated that he had not eaten in 3 days, has no energy, and wants to sleep all of the time. Left pt with his lunch tray and encouraged him to eat.
--- NOTE | 2020-02-25 15:44 | NUR ---
GROUP B PT ATTENDED GROUP THERAPY FOR THE LAST HALF HOUR. PT SAT IN A CHAIR AND LISTENED TO MUSIC AND SOCIALIZED WITH THIS INDUSTRIAL LABORER. PT EXPRESSED NO SUICIDAL IDEATIONS WHILE IN GROUP.
[2020-02-25 20:00] VITALS: BP 105/67; BP 114/68
--- NOTE | 2020-02-26 01:19 | NUR ---
P-DEPRESSED MOOD, GUARDED. I-PROVIDE 1:1 WITH THERAPEUTIC INTERVENTIONS. PROVIDE SUPPORT. ASSESS FOR SI, INTENT, OR PLAN. CONTRACT FOR SAFETY. ENCOURAGE MEDICATION COMPLIANCE AND EDUCATE. MONITOR SLEEP. R-PATIENT ALERT AND ORIENTED X4. PT CALM, PLEASANT, AND INTERACTIVE THIS HS. PT SAT IN DINING ROOM TO WATCH A MOVIE WITH PEERS AND TO HAVE HS SNACK. DURING 1:1 PATIENT BECAME GUARDED, STATED THAT HE DOES HAVE SUICIDAL THOUGHTS AT TIMES BUT WOULD NOT ELABORATE TO WHY OR TO ANY TYPE OF PLAN. PT CONTRACTED FOR SAFETY. PT MEDICATION COMPLIANT WITHOUT DIFFICULTY AFTER REVIEW. PT DENIES HI, HALLUCINATIONS, OR PAIN. PT AMBULATORY WITH A STEADY GAIT, INDEPENDENT IN ADLS, CONTINENT OF BOWEL AND BLADDER. NO DISTRESS NOTED. P-CONTINUE TO MONITOR MOOD AND BEHAVIORS. MAINTAIN Q 15 MIN CHECKS AND PRN FOR SAFETY.
--- NOTE | 2020-02-26 05:21 | NUR ---
24 HOUR CHART CHECK COMPLETED.
--- NOTE | 2020-02-26 05:58 | NUR ---
PATIENT SLEPT APPROX 6 HOURS THROUGHOUT THE NIGHT UNINTERRUPTED. NO DISTRESS NOTED.
[2020-02-26 07:50] VITALS: BP 116/62
--- NOTE | 2020-02-26 08:30 | NUR ---
Treatment Plan meeting was held this a.m. with Dr. Blas Echavarria via telephone, RN, AT, [facility] and Education Rn. Plan for discharge Next week with return home.
--- NOTE | 2020-02-26 11:41 | NUR ---
AM GROUP PT DID NOT ATTEND MORNING GROUP THERAPY. PT CHOSE TO STAY IN HIS ROOM AND REST.
--- NOTE | 2020-02-26 14:10 | NUR ---
GROUP A/MANICURES PT ATTENDED GROUP THERAPY AND PAINTED SOME WOODEN STARS FOR ME BEFORE BEING CALLED OUT BY SW. PT DID NOT RETURN.
[2020-02-26 14:23] LABS: BILIRUBIN 1+ (NEGATIVE); BLOOD NEGATIVE (NEGATIVE); CLARITY SL CLOUDY (CLEAR); COLOR YELLOW (YELLOW); GLUCOSE NEGATIVE (NEGATIVE); KETONE NEGATIVE (NEGATIVE); LEUKO ESTERASE NEGATIVE (NEGATIVE); NITRITE NEGATIVE (NEGATIVE); UROBILINOGEN 0.2 E.U./dl (0.2-1.0)
[2020-02-26 15:01] LABS: BACTERIA 1+; CALCIUM OXALATE CRYSTALS 1+; HYALINE CAST 16-20; MUCOUS 2+
--- NOTE | 2020-02-26 15:20 | NUR ---
Extensive time spent with pt individually this afternoon. Pt continues to report suicidal ideations but contracts for safety while at [facility]. As a continuation from previous session, discussed pt's inability to share openly about emotional pain from his past. Pt shared that he continued to think about the discussion yesterday and recognizes that he needs to be truthful with someone but still feels that he cannot be. Discussed this further. Shared with pt that pt's son Jose M has spoken to this advertising writer and plans on phoning pt later this evening. Explained to pt that Jose M expressed that he wished pt could be more truthful with him. Pt questioned how he could do that. Discussed this further and encouraged pt to begin sharing his thoughts and emotions with Jose M. Discussed pt's current life stressors, primarily his 's advancing dementia and financial concerns. Discussed supportive options for pt's . Educated pt about [employer] and Medicaid. Pt voiced willingness for this advertising writer to explore this further. Discussed Alzheimer's support groups. Pt did state that he attempted to go to one after his [facility] discharge in 09/23. However, by the time that he contacted the service and received confirmation of a meeting, COVID caused the group to be cancelled until further notice. Discussed pt having a gun hidden. Pt stated that it is well hidden where no one will find it but that he is cautious and removed the bullets prior to hiding it. Pt is not willing to divulge the gun's location. Pt was tearful at times through the session. He admits to continued suicidal ideations with various options beyond using a gun.
--- NOTE | 2020-02-26 15:21 | NUR ---
SPOKE WITH DR ARMSTRONG AT [phone] RE: PT UA RESULTS, NO NEW ORDERS AT THIS TIME.
--- NOTE | 2020-02-26 15:48 | NUR ---
GROUP B PT ATTENDED GROUP THERAPY AND PARTICIPATED BY PAINTING AND SOCIALIZING. PT WAS MUCH BRIGHTER TODAY AND ACTUALLY MADE STATEMENTS ABOUT THE FUTURE. PT EXPRESSED NO SUICIDAL IDEATIONS WHILE IN GROUP
--- NOTE | 2020-02-26 15:57 | NUR ---
NURSE APPROACHED PT TO COMPLETE HEAD TO TOE SKIN ASSESSMENT, PT STATED HE HAS NO WOUNDS OR OPEN AREAS. HE STATED "I HAVE THIS OLD SCRAPE HERE ON MY RIGHT ELBOW". NURSE INSPECTED "OLD SCRAPE" THERE IS NOT AN OPEN AREA OR DRAINAGE NOTED.
--- NOTE | 2020-02-26 17:59 | NUR ---
P: PT MOOD IS DEPRESSED. PT ISOLATIVE TO ROOM AT TIMES THROUGHOUT THE DAY. PT TEARFUL AT TIMES. PT VOICES SUICIDAL THOUGHTS WITHOUT A PLAN I: PROVIDE EMOTIONAL SUPPORT AND 1:1 FOR PT TO VOICE FEELINGS, ENCOURAGE MED COMPLIANCE AND PROVIDE MED EDUCATION, ENCOURAGE GROUP PARTICIPATION AND SOCIALIZATION, ENCOURAGE PT TO SPEAK WITH STAFF RE: HIS SUICIDAL THOUGHTS R: PT ALERT TO PERSON, PLACE, TIME AND SITUATION. PT MED COMPLIANT WITHOUT DIFFICULTY, MED EDUCATION PROVIDED. PT CALM, MOOD REMAINS DEPRESSED. PT CONTINUES TO VOICE SUICIDAL THOUGHTS, WILL NOT ELABORATE TO STAFF ON A PLAN STATES "OH IT COULD BE MANY WAYS", PT VERBALLY CONTRACTS FOR SAFETY WHILE IN THE HOSPITAL STATES "I DON'T KNOW WHAT WILL HAPPEN WHEN I LEAVE HERE." NO HALLUCINATION OR DELUSIONS NOTED. PT AMBULATORY THROUGHOUT UNIT, GAIT STEADY. PT CONTINENT OF BOWEL AND BLADDER. P: MONITOR PT BEHAVIORS ON Q15 MIN SAFETY CHECKS, ENCOURAGE MED COMPLIANCE AND PROVIDE MED EDUCATION, PROVIDE EMOTIOANL SUPPORT AND 1:1 FOR PT TO VOICE FEELINGS, ENCOURAGE PT TO SPEAK WITH STAFF RE: HIS SUICIDAL THOUGHTS, ENCOURAGE GROUP PARTICIPATION AND SOCIALZIATION.
[2020-02-26 19:58] VITALS: BP 118/68
--- NOTE | 2020-02-26 22:32 | NUR ---
P-DEPRESSED MOOD, GUARDED. I-PROVIDE 1:1 WITH THERAPEUTIC INTERVENTIONS. PROVIDE SUPPORT. ASSESS FOR SI, INTENT, OR PLAN. CONTRACT FOR SAFETY. ENCOURAGE MEDICATION COMPLIANCE AND EDUCATE. MONITOR SLEEP. R-PATIENT ALERT AND ORIENTED X4. PT CALM, PLEASANT, AND INTERACTIVE THIS HS. PT SAT IN DINING ROOM TO WATCH A MOVIE WITH PEERS AND TO HAVE HS SNACK. DURING 1:1 PATIENT AGAIN BECAME GUARDED WITH THIS NURSE, STATED THAT HE DOES HAVE SUICIDAL THOUGHTS AT TIMES BUT WOULD NOT ELABORATE TO WHY OR TO ANY TYPE OF PLAN. PT CONTRACTED FOR SAFETY. PT MEDICATION COMPLIANT WITHOUT DIFFICULTY AFTER REVIEW. PT DENIES HI, HALLUCINATIONS, OR PAIN. PT AMBULATORY WITH A STEADY GAIT, INDEPENDENT IN ADLS, CONTINENT OF BOWEL AND BLADDER. NO DISTRESS NOTED. P-CONTINUE TO MONITOR MOOD AND BEHAVIORS. MAINTAIN Q 15 MIN CHECKS AND PRN FOR SAFETY.
--- NOTE | 2020-02-27 05:50 | NUR ---
PATIENT SLEPT APPROX 8 HOURS UNINTERRUPTED. NO DISTRESS NOTED.
[2020-02-27 07:35] VITALS: BP 92/51
--- NOTE | 2020-02-27 08:30 | NUR ---
Treatment Plan meeting was held this a.m. with Dr. Odonnell via telephone, RN, AT, [employer] and Dock Worker. Plan for discharge Next week. Pt. will return home.
--- NOTE | 2020-02-27 10:07 | NUR ---
PT REFUSED HEAD TO TOE SKIN ASSESSMENT, STATED "ALL I HAVE IT THAT OLD HEALED SCRAPE ON MY ELBOW."
--- NOTE | 2020-02-27 11:40 | NUR ---
AM GROUP PT ATTENDED MORNING GROUP THERAPY AND PARTICIPATED BY PAINTING AND SOCIALIZING. PT SEEMED IN GOOD SPIRITS AND EXPRESSED NO SUICIDAL IDEATIONS. PT MADE STATEMENTS THAT WERE FUTURE ORIENTED.
--- NOTE | 2020-02-27 15:29 | NUR ---
GROUP A PT ATTENDED GROUP THERAPY AND PARTICIPATED BY PAINTING AND SOCIALIZING. PT EXPRESSED NO SUICIDAL IDEATIONS WHILE IN GROUP
--- NOTE | 2020-02-27 15:31 | NUR ---
GROUP B PT ATTENDED GROUP THERAPY FOR A SHORT TIME UNTIL CALLED OUT BY [facility]. PT DID NOT RETURN.
--- NOTE | 2020-02-27 16:05 | NUR ---
Met with pt this afternoon for individual session. Discussed pt's status. Pt continues to voice suicidal ideations but contracts for safety here. Discussed pt's ability to "put on a face" with other people. Pt uses that phrase to explain that outwardly he can smile and appear okay but inwardly he remains depressed and suicidal. Discussed pt improving his ability to share his thoughts and experiences. Discussed pt's true desire which is to keep his car mandaen garage. Problem solved with pt about this. Discussed pt's and her dementia dx. Problem solved about this with pt. Discussed EMDR further. Toward the end of the session, pt asked, "So how do we keep me safe when I leave here?" Discussed this further.
--- NOTE | 2020-02-27 16:10 | NUR ---
Family meeting held with pt's son Jose M via the phone. Pt gave verbal permission prior to meeting that this technical report writer could share with Jose M anything about what pt has discussed with this technical report writer. Discussed pt's current status. Jose M shared about his recent observations of pt. Jose M voiced that he wants pt to share more of his feeling and thoughts with him. Discussed this further. Discussed pt having a hidden gun. Jose M stated that he wasn't aware that pt had any guns any longer. Jose M stated that he has no idea where the gun could possibly hidden. Jose M stated that he will ask other family members for thoughts of where the gun might be.
--- NOTE | 2020-02-27 17:04 | NUR ---
P: PT MOOD IS DEPRESSED, PT VOICES SUICIDAL THOUGHTS WITH A PLAN TO USE A GUN, PT STATES HE HAS A GUN AT HOME. PT ISOLATIVE TO SELF AT TIMES. POOR APPETITE AT TIMES STATES "I JUST HAVE NO DESIRE TO EAT". PT TEARFUL AND GUARDED AT TIMES. I: PROVIDE EMOTIONAL SUPPORT AND 1:1 FOR PT TO VOICE FEELINGS, ENCOURAGE PT TO VOICE SUICIDAL THOUGHTS AND VERBALLY CONTRACT FOR SAFETY, ENCOURAGE MED COMPLIANCE AND PROVIDE MED EDUCATION R: PT ALERT TO PERSON, PLACE, TIME AND SITUATION. PT MED COMPLIANT WITHOUT DIFFICULTY, MED EDUCATION PROVIDED. PT CALM, MOOD REMAINS DEPRESSED. PT CONTINUES TO VOICE SUICIDAL THOUGHTS, VERBALLY CONTRACTS FOR SAFETY WHILE IN THE HOSPITAL BUT CANNOT SAY WHAT WILL HAPPEN AFTER HE LEAVES. NO HALLUCINATIONS OR DELUSIONS NOTED. PT AMBULATORY THROUGOUT UNIT, GAIT STEADY. PT CONTINENT OF BOWEL AND BLADDER. PT SHOWERED THIS SHIFT. PT CONSUMED 50% OF HIS BREAKFAST AND 100% OF LUNCH WITH MUCH ENCOURAGEMENT. PT REMAINS TEARFUL AT TIMES. P: MONITOR PT BEAHVIORS ON Q15 MIN SAFETY CHECKS, ENCOURAGE MED COMPLIANCE AND PROVIDE MED EDUCATION, ENCOURAGE GROUP PARTICIPATION AND SOCIALIATION, ENCOURAGE PO INTAKE, ENCOURAGE PT TO VOICE SUICIDAL THOUGHTS AND VERBALLY CONTRACT FOR SAFETY.
[2020-02-27 20:00] VITALS: BP 113/62
--- NOTE | 2020-02-27 21:50 | NUR ---
Patient alert and oriented to person,place,time,and situation. Mood calm,pleasant and cooperative. Patient in diningroom watching TV with other patients during snack. Patient interactive with staff and other patients. Patient admits to having suicidal thoughts but has no plan right now. Patient contracts for safety. Denies having hallucinations or delusions. No overt s/s of responding to internal stimuli. Patient compliant with HS medications without any difficulty. Provided 1:1 for emotional support and therapeutic communication. Plan to continue to encourage medication compliance. Also continue to provide emotional support and therapeutic communication. Will also continue to encourage patient to contract for safety when having suicidal thoughts. Plan to also continue monitoring moods/behaviors. Q 15 minute safety checks continued and maintained. Patient ambulated unassisted with steady gait to his room. See [facility] flowsheet for further documentation.
--- NOTE | 2020-02-28 00:11 | NUR ---
24 HR chart check completed.
--- NOTE | 2020-02-28 05:47 | NUR ---
Patient slept approx. 6 hours throughout shift. Q 15 minute safety check continued and maintained.
[2020-02-28 07:37] VITALS: BP 121/76
--- NOTE | 2020-02-28 08:30 | NUR ---
Treatment plan meeting was held this a.m. with DEON Garcia RN AT, [facility] and Documentation Specialist. Plan for discharge next week. Pt. will return home at discharge.
--- NOTE | 2020-02-28 09:06 | NUR ---
DR BARRERA ON UNIT TO ASSESS PT, UPDATE PROVIDED.
--- NOTE | 2020-02-28 11:44 | NUR ---
AM GROUP PT ATTENDED MORNING GROUP THERAPY AND PARTICIPATED IN ALL ACTIVITIES. PT WAS ON TASK AND SOCIALABLE. PT EXPRESSED NO SUICIDAL IDEATIONS WHILE IN GROUP.
--- NOTE | 2020-02-28 14:07 | NUR ---
GROUP A / BOYD PT DID NOT ATTEND GROUP THERAPY. PT WAS RESTING AND WITH SW.
--- NOTE | 2020-02-28 14:40 | NUR ---
Individual session with pt this afternoon. Provided pt with printed information about EMDR therapy and a dementia caregivers guide. Pt voiced appreciation for these. Pt stated that he wants to be around for Apryl, his , and his son Jose M. Pt stated, "I want this but how do I get past these feelings. I've felt so bad for so long." Discussed this further. Offered to pt that he can truly heal through therapy. Offered to pt an exercise to assist him in breaking down the barrier that prevents him from sharing his thoughts and feelings. Pt voiced a willingness to try. Continued to problem solve with pt. Pt states that he continues to have suicidal ideations but the intensity has lessened. He is voicing that he wants to get better and that he wants to live to be with his family.
--- NOTE | 2020-02-28 14:46 | NUR ---
Left a voicemail message at [facility] and with Janet Lucio, EMDR therapist, inquiring about their services. Await return calls.
--- NOTE | 2020-02-28 15:43 | NUR ---
GROUP B PT ATTENDED AFTERNOON GROUP THERAPY AND PARTICIPATED IN ALL ACTIVITIES. PT EXPRESSED NO SUICIDAL IDEATIONS WHILE IN GROUP
--- NOTE | 2020-02-28 15:56 | NUR ---
P: PT MOOD IS DEPRESSED, PT VOICES SUICIDAL THOUGHTS WITH A PLAN TO USE A GUN OR SOMETHING ELSE. I: PROVIDE EMOTIONAL SUPPORT AND 1:1 FOR PT TO VOICE FEELINGS, ENCOURAGE MED COMPLIANCE AND PROVIDE MED EDUCATION, ENCOURAGE PT TO VOICE SUICIDAL THOUGHTS AND VERABLLY CONTRACT FOR SAFETY R: PT ALERT TO PERSON, PLACE, TIME AND SITUATION. PT MED COMPLIANT WITHOUT DIFFICULTY, MED EDUCATION PROVIDED. PT CALM, MOOD REMAINS DEPRESSED. PT CONTINUES TO VOICE SUICIDAL THOUGHTS BUT STATES HE NEEDS TO BE AROUNDFOR HIS AND HIS SON. NO HALLUCINATIONS OR DELUSIONS NOTED. PT AMBUALTORY THROUGHOUT UNIT, GAIT STEADY. PT CONTINENT OF BOWEL AND BLADDER. P: PROVIDE EMOTIONAL SUPPORT AND 1:1 FOR PT TO VOICE FEELINGS, ENCOURAGE MED COMPLIANCE AND PROVIDE MED EDUCATION, MONITOR PT BEHAVIORS ON Q15 MIN SAFETY CHECKS, ENCOURAGE GROUP PARTICIPATION AND SOCIALIZATION.
[2020-02-28 20:00] VITALS: BP 127/79
--- NOTE | 2020-02-28 22:00 | NUR ---
Patient alert and oriented to person,place,time,and situation. Mood calm,pleasant and cooperative. Patient in diningroom watching TV with other patients during snack. Patient interactive with staff and other patients.Patient states "had a good day today." Patient admits to having suicidal thoughts but has no plan right now. Patient contracts for safety. Denies having hallucinations or delusions. No overt s/s of responding to internal stimuli. Patient compliant with HS medications without any difficulty. Provided 1:1 for emotional support and therapeutic communication. Plan to continue to encourage medication compliance. Also continue to provide emotional support and therapeutic communication. Will also continue to encourage patient to contract for safety when having suicidal thoughts. Plan to also continue monitoring moods/behaviors. Q 15 minute safety checks continued and maintained. Patient ambulated unassisted with steady gait to his room. See [facility] flowsheet for further documentation.
--- NOTE | 2020-02-29 00:12 | NUR ---
24 HR chart check completed.
--- NOTE | 2020-02-29 05:51 | NUR ---
Patient slept approx. 8 hours throughout shift. Q 15 minute safety checks continued and maintained.
[2020-02-29 08:00] VITALS: BP 111/56
--- NOTE | 2020-02-29 09:00 | NUR ---
DR BARRERA ON UNIT TO ASSESS PT.
--- NOTE | 2020-02-29 12:08 | NUR ---
PT REFUSED A HEAD TO TOE SKIN ASSESSMENT TO THIS RN.
--- NOTE | 2020-02-29 17:04 | NUR ---
PT REQUESTED TYLENOL FOR BACK PAIN. RATED 8 OUT OF 10. PRN TYLENOL GIVEN ORDERED. WILL MONITOR EFFECTIVENESS OF MEDICATION.
--- NOTE | 2020-02-29 18:39 | NUR ---
Shift chart check completed.
[2020-02-29 20:00] VITALS: BP 131/87
--- NOTE | 2020-02-29 21:54 | NUR ---
Patient alert and oriented to person,place,time,and situation. Mood calm,pleasant and cooperative. Patient in diningroom watching TV with other patients during snack. Patient interactive with staff and other patients.Patient states "no complaints at this time." Patient admits to having suicidal thoughts but has no plan right now. Patient contracts for safety. Denies having hallucinations or delusions. No overt s/s of responding to internal stimuli. Patient compliant with HS medications without any difficulty. Provided 1:1 for emotional support and therapeutic communication. Plan to continue to encourage medication compliance. Also continue to provide emotional support and therapeutic communication. Will also continue to encourage patient to contract for safety when having suicidal thoughts. Plan to also continue monitoring moods/behaviors. Q 15 minute safety checks continued and maintained. Patient ambulated unassisted with steady gait to his room. See [facility] flowsheet for further documentation.
--- NOTE | 2020-03-01 05:55 | NUR ---
Patient slept approx. 7 hours throughout shift. Q 15 minute safety checks continued and maintained.
[2020-03-01 08:00] VITALS: BP 110/74
--- NOTE | 2020-03-01 09:00 | NUR ---
DR. BARRERA ON UNIT TO ASSESS PATIENT.
--- NOTE | 2020-03-01 13:34 | NUR ---
Shift chart check completed.
--- NOTE | 2020-03-01 14:05 | NUR ---
P- Depressed mood with suicidal thoughts. Will not discuss plan. Verbal contract for safety while in the hospital. I- Assess mood, orientation, SI/HI, hallucinations, delusions or pain. Provide medications on time with education on each. 1:1 therapeutic interaction with emotional support and ventilation of feelings provided with reassurance. Educate on the use of coping techniques and encourage to utilize. Encourage to attend/participate in group therapies for emotional support and socialization. R- Alert and oriented x4. Mood is depressed. Affect is congruent with mood. Pt states that he is currently having suicidal ideation. Pt refuses to ellaborate on the plan that he has. Pt did verbally contract for safety while on the unit. Pt stated "Oh no, I would never hurt myself while I am here. That would never happen". Pt stated that coping techniques are ineffective for him now. 1:1 interaction and reassurance slightly effective. Denies HI, hallucinations, delusions or pain. No s/s of interacting with internal stimuli. No s/s of paranoid or delusional thought process noted. No s/s of distress noted, resps even and unlabored on room air. Pt is eating and drinking adequately, napping during the day at times. Ambulates with a steady gait. Voices needs and makes known. Medication compliant with no difficulties. Pt is attending and participating in group therapies. Interactive with peers and staff. P- Assess mood, orientation, SI/HI, hallucinations, delusions or pain. Plan is to continue patients current treatment plan. Verbally contract for safety while on the unit. Encourage to utilize coping skills. Provide medications on time with education on each. Encourage to attend/participate in group therapies. Provide 1:1 therapeutic intreaction and reassurance when needed. Q15 minute checks maintained for safety.
--- NOTE | 2020-03-01 14:42 | NUR ---
Patient refused head to toe skin assessment.
[2020-03-01 20:00] VITALS: BP 110/61
--- NOTE | 2020-03-01 22:53 | NUR ---
P--DEPRESSION/ HOPELESS/HELPLESS E--REVIEWED MEDICATIONS AND CONTRACT FOR SAFETY. OFFERED 1:1. SNACK PROVIDED BY STAFF. ENCOURAGED TO SEEK ME OR STAFF OUT IF HE WANTS TO TALK R--I STILL FEEL SUICIDAL BUT I WON'T DO ANYTHING HERE. NOTHING REALLY TO TALK ABOUT NOW. P--MONITOR FOR CHANGES IN MOOD/BEHAVIOR AND Q 15 MINUTES AND PRN FOR SAFETY
--- NOTE | 2020-03-02 04:59 | NUR ---
24 HR chart check completed.
--- NOTE | 2020-03-02 06:07 | NUR ---
SLEPT 8 UNINTERUPTED HOURS. MOVES SELF WELL IN BED
[2020-03-02 07:48] VITALS: BP 106/73
--- NOTE | 2020-03-02 09:00 | NUR ---
Treatment Plan meeting was held this a.m. with Dr. Odonnell, DEON Garcia, RN, AT, [employer] and Energy Rater. Plan for discharge at the end of the week, beginning of next week.
--- NOTE | 2020-03-02 13:52 | NUR ---
CLIENT IS A&O X4. CLIENT STATES HE FEELS OK AND REPORTS AN IMPROVEMENT IN HIS MOOD SINCE ADMISSION. APPEARS TO BE DEPRESSED AND HOPELESS/HELPLESS. DENIES HALLUCINATIONS AND DELUSIONS. DENIES SI/HI. CALM AND INTERACTIVE WITH STAFF AND PEERS. CLIENT DENIES PAIN AT THIS TIME. RESPIRATIONS NON-LABORED. GAIT IS STEADY. BEHAVIORS MONITORED WITH Q15 MINUTE SAFETY CHECKS. MEDICATION COMPLIANT WITHOUT DIFFICULTY. PROVIDED 1:1 FOR THERAPEUTIC COMMUNICATION. CONTINUE TO PROVIDE 1:1 FOR THERAPEUTIC COMMUNICATION, ENCOURAGE MEDICATION COMPLIANCE, ATTENDANCE AND PARTICIPATION IN GROUPS, MONITOR BEHAVIORS WITH Q15 MINUTE SAFETY CHECKS. SEE [facility] FLOWSHEET FOR SPECIFIC MONITORING.
--- NOTE | 2020-03-02 15:05 | NUR ---
Met with pt individually. Pt reported that he was feeling discouraged. Pt states that his suicidal thoughts have worsened as the day progresses. He reports that he wasn't feeling suicidal this AM when he met with Radha Gutiérrez IRRIGATION INSTALLATION SPECIALIST. Pt spoke of his life stressors - his 's dementia and financial concerns. Pt reported that he sees "no way out of this." Discussed this further and problem solved with pt. Pt stated, "If I lose Apryl (his ) to dementia and I lose my garage, what will I have? What will I be without them? I can't expect Jose M to alway be there for me." Discussed this further and continued to problem solve. Pt also reported that he had begun having " dreams" that he wasn't experiencing when he was off of psychiatric medications. When asked, pt stated that he didn't think about this when he was speaking with IRRIGATION INSTALLATION SPECIALIST earlier. Discussed pt's discharge plan. Pt was tearful at various times. He is currently voicing suicidal ideations but contracts for safety while here.
--- NOTE | 2020-03-02 15:53 | NUR ---
GROUP A AND B PT ATTENDED BOTH GROUP THERAPY SESSIONS AND PARTICIPATED IN ALL ACTIVITIES. PT EXPRESSED NO SUICIDAL IDEATIONS WHILE IN GROUP. PT WAS NOTED TO BE STARING OUT THE WINDOW A FEW TIMES BUT WOULD QUICKLY BOUNCE BACK AND BE LAUGHING AND SOCIALABLE.
[2020-03-02 20:00] VITALS: BP 134/69
--- NOTE | 2020-03-02 21:29 | NUR ---
Patient alert and oriented to person,place,time,and situation. Mood calm,pleasant and cooperative. Patient in diningroom watching TV with other patients during snack. Patient interactive with staff and other patients.Patient states "not a good day today." Patient having suicidal thoughts but patient says "I won't do anything while I am here". Patient contracts for safety. Denies having hallucinations or delusions. No overt s/s of responding to internal stimuli. Patient compliant with HS medications without any difficulty. Provided 1:1 for emotional support and therapeutic communication. Plan to continue to encourage medication compliance. Also continue to provide emotional support and therapeutic communication. Will also continue to encourage patient to contract for safety when having suicidal thoughts. Plan to also continue monitoring moods/behaviors. Q 15 minute safety checks continued and maintained. Patient ambulated unassisted with steady gait to his room. See [facility] flowsheet for further documentation.
--- NOTE | 2020-03-03 00:20 | NUR ---
24 HR chart check completed.
--- NOTE | 2020-03-03 05:55 | NUR ---
Patient slept approx. 8 hours throughout shift. Q 15 minute safety checks continued and maintained.
[2020-03-03 07:37] VITALS: BP 129/68
--- NOTE | 2020-03-03 10:50 | NUR ---
DR PIERCE ON UNIT TO ASSESS PT, UPDATE PROVIDED.
--- NOTE | 2020-03-03 11:47 | NUR ---
AM GROUP/ EXERCISE AND PICTIONARY PT ATTENDED MORNING GROUP THERAPY AND PARTICIPATED IN ALL ACTIVITIES. PT WAS ENGAGED AND PARTICIPATED FULLY. PT EXPRESSED NO SUICIDAL IDEATIONS WHILE IN GROUP.
--- NOTE | 2020-03-03 13:29 | NUR ---
Treatment Plan meeting was held this a.m. with DEON Garcia, RN, AT, VISH-S and Communications Executive. Plan for discharge Next week. Family Meeting scheduled for .
--- NOTE | 2020-03-03 15:22 | NUR ---
Received a call from RN while off the [facility] unit alerting this medical underwriter that pt was quite upset after receiving a call from his [id number] that pt's seemed to be in distress. Met with RN and discussed situation. This medical underwriter phoned pt's stepdaughter Daniella and informed her of the call and pt's current status. Daniella stated that she plans on going to her mother's after work. This medical underwriter and RN then met with pt who was visibly anxious and tearful. Informed pt of conversation with Daniella. Assisted pt in processing events. RN and this medical underwriter empathized and offered support to pt. Pt calmed and went to his room stating that he was going to try to rest. This medical underwriter did check on pt approximately 30 minutes later and pt stated that he was doing "okay."
--- NOTE | 2020-03-03 15:35 | NUR ---
GROUP A AND GROUP B PT DID NOT ATTEND GROUP A AND ONLY PART OF GROUP B. PT CHOSE NOT TO PLAY CARDS AND COLORED INSTEAD. PT EXPRESSED NO SUICIDAL IDEATIONS WHILE IN GROUP.
--- NOTE | 2020-03-03 17:32 | NUR ---
CLIENT IS A&O X4. HOPELESS/HELPLESS, TEARFUL, AND SAD. CLIENT IS WORRIED ABOUT HIS AND RECEIVING CARE WHILE HE IS IN THE HOSPITAL. DENIES HALLUCINATIONS AND DELUSIONS. DENIES SI/HI. CALM AND INTERACTIVE WITH STAFF AND PEERS. CLIENT DENIES PAIN AT THIS TIME. RESPIRATIONS NON-LABORED. GAIT IS STEADY. BEHAVIORS MONITORED WITH Q15 MINUTE SAFETY CHECKS. MEDICATION COMPLIANT WITHOUT DIFFICULTY. PROVIDED 1:1 FOR THERAPEUTIC COMMUNICATION. CONTINUE TO PROVIDE 1:1 FOR THERAPEUTIC COMMUNICATION, ENCOURAGE MEDICATION COMPLIANCE, ATTENDANCE AND PARTICIPATION IN GROUPS, MONITOR BEHAVIORS WITH Q15 MINUTE SAFETY CHECKS. SEE [facility] FLOWSHEET FOR SPECIFIC MONITORING.
[2020-03-03 20:00] VITALS: BP 142/82
--- NOTE | 2020-03-03 23:54 | NUR ---
P-DEPRESSED MOOD, ISOLATIVE I-REDIRECTION WITH 1:1 THERAPEUTIC INTERVENTIONS AND COMMUNICATION. EDUCATE AND ENCOURAGE MEDICATION COMPLIANCE R-MEDICATION COMPLIANT AT HS. PATIENT PROVIDED NOURISHMENT AND FLUIDS AT HS. PATIENT WITH NO HALLUCINATIONS OR DELUSIONS. PATIENT WITH NO HOMICIDAL IDEATIONS AND DENIES SUICIDAL IDEATIONS, INTENT OR PLAN AT THIS TIME. PATIENT INTERACTING WITH PEERS IN DINING AREA. PATIENT ISOLATIVE IN DINING AREA WITH LIMITED INTERACTION WITH PEERS. PATIENT HAD TELEPHONE CALL WITH AT AND PATIENT STATING "SHE SOUNDS GOOD AND THANK YOU GUYS FOR ALL THAT YOU DO FOR ME". P-CONTINUE TO ENCOURAGE MEDICATION COMPLIANCE, ENCOURAGE GROUP THERAPY WHILE AWAKE
--- NOTE | 2020-03-04 06:19 | NUR ---
PATIENT SLEPT 7 HOURS OF INTERRUPTED SLEEP THROUGHOUT SHIFT. Q 15 MINUTE CHECKS MAINTAINED. 24 HR chart check completed.
[2020-03-04 08:00] VITALS: BP 108/64
--- NOTE | 2020-03-04 08:30 | NUR ---
Treatment Plan meeting was held this a.m. with Dr. Odonnell via telephone, RN, AT, AMPLIFIER MECHANIC-S and Balance Wheel Arm Burnisher. Plan for discharge Next week. Pt. will return home at discharge.
--- NOTE | 2020-03-04 11:11 | NUR ---
and team on unit to see pt at this time.
--- NOTE | 2020-03-04 11:15 | NUR ---
P: PATIENT BEING LIKE A HEAD IF HE WAS GOING TO BLACKOUT, STATING HE WAS HAVING A PANIC ATTACK. DR. PIERCE AND RESIDENT ON UNIT TO ASSESS PATIENTS. DINING LOUD WITH ALOT OF STIMULUS. THEN PATIENT COMPLAINED OF HAVING A HEAD ACHE I: PATIENT REMOVED SELF FROM DINING ROOM, IN ROOM RESTING QUIETLY, DEEP BREATHING, ONE ON ONE PROVIDED AND OFFERED PATIENT TO EAT LUNCH IN QUIET ROOM WITH LOW STIMULI. R: EFFECTIVE. PATIENT IS ALERT TO PERSON, PLACE, TIME AND SITUATAION; ABLE TO VOICE NEEDS. MOOD IS DEPRESSED, CALM DEMEANOR, INTERACTIVE WITH STAFF. DENIES ANY HALLUCINATIONS, DELUSIONS, HI/SI OR PAIN. MEDICAITON COMPLAINT WITH EDUCATION PROVIDED. Q 15 MINUTE SAFETY CHECKS MAINTAINED. INDEPENDENT WITH ACTIVITIES OF DAILY LIVING, CONTINENT OF BOWEL AND BLADDER. SET UP FOR MEALS, INTAKES ARE GOOD WITH ADEQUATE FLUIDS. P: CONTINUE TO MONITOR MOOD, DEPRESSION, THOUGHTS OF SI AND PANIC ATTACKS. PROVIDE ONE ON ONE FOR EMOTIONAL SUPPORT, ENCOURAGE TO USE COPING SKILLS AND CONTRACT FOR SAFETY NEEDED.
--- NOTE | 2020-03-04 12:06 | NUR ---
Left a voicemail message for Graciela MCCRAY, EMDR therapist, requesting a return call to discuss referral for pt.
[2020-03-04 12:51] VITALS: BP 120/70
--- NOTE | 2020-03-04 14:59 | NUR ---
Spoke with Graciela MCCRAY at [facility]. Reviewed pt's criteria for EMDR. Graciela scheduled pt's first appointment for 03/12/20 at 11:00.
--- NOTE | 2020-03-04 15:01 | NUR ---
Met with pt individually. Informed pt about EMDR appointment. Discussed pt's current status. Pt stated that today he is feeling anxious and that has him concerned because his anxiety has been under control. Discussed this further. Discussed family meeting that is scheduled tomorrow. Discussed pt being open with his family about his thoughts/concerns. Discussed this further. Pt did voice that he hopes he can beat his suicidal ideations so he can be around for his and son. Pt stated that he is scared when he thinks of reaching that point of desperation when he actively pursues suicide. Discussed this further. Pt shared that when he reaches that point, no coping skill is helpful. This health underwriter asked pt if he would provide the location of the gun that he has hidden. Pt stated that he is not yet ready to share that information but did confirm that it is well hidden with the bullets hidden in another location.
[2020-03-04 19:07] VITALS: BP 126/65
--- NOTE | 2020-03-05 01:01 | NUR ---
P-ANXIOUS I-PROVIDE 1:1 WITH THERAPEUTIC INTERVENTIONS. PROVIDE SUPPORT. ASSESS FOR SI, INTENT OR PLAIN. ENCOURAGE MEDICATION COMPLIANCE AND EDUCATE. MONITOR SLEEP. R-PATIENT ALERT AND ORIENTED X4. PT PLEASANT, AND INTERACTIVE THIS HS. PT SAT IN DINING ROOM TO WATCH A MOVIE WITH PEERS AND TO HAVE HS SNACK. DURING 1:1 PATIENT APPEARED ANXIOUS, WHEN QUESTIONED PT STATED "IM STILL A LITTLE WORKED UP FROM EARLIER TODAY, BUT IM OKAY, IM DOING BETTER". PT PROVIDED SUPPORT WITH POSITIVE EFFECT. PT DENIED SI, CONTRACTED FOR SAFETY. PT ALSO DENIED HI, HALLUCINATIONS, OR PAIN. PT MEDICATION COMPLIANT WITHOUT DIFFICULTY AFTER REVIEW. PT AMBULATORY WITH A STEADY GAIT, INDEPENDENT IN ADLS, CONTINENT OF BOWEL AND BLADDER. NO DISTRESS NOTED. P-CONTINUE TO MONITOR MOOD AND BEHAVIORS. MAINTAIN Q 15 MIN CHECKS AND PRN FOR SAFETY.
--- NOTE | 2020-03-05 06:50 | NUR ---
Patient slept approx. 6.5 hours throughout shift. Q 15 minute safety checks continued and maintained.
[2020-03-05 07:28] VITALS: BP 120/76
--- NOTE | 2020-03-05 08:30 | NUR ---
Treatment plan meeting was held this a.m. via telephone with Dr. Odonnell, RN, AT, WIRE BRUSH MAKER-S and Alteration Manager. Plan for discharge Next week. Pt. will return home.
--- NOTE | 2020-03-05 09:26 | NUR ---
rounded via telehealth. No medication changes this date.
--- NOTE | 2020-03-05 09:44 | NUR ---
Spoke with pt this AM and confirmed that he would like a referral to [facility] for a home assessment to see if his qualifies for Passport services. Phoned Meghan at [facility] and made referal for pt's Apryl.
--- NOTE | 2020-03-05 11:47 | NUR ---
AM GROUP/TRIVIA PT DID NOT ATTEND MORNING GROUP THERAPY. PT WAS IN A FAMILY MEETING WITH THE CARPET RENOVATOR.
--- NOTE | 2020-03-05 12:14 | NUR ---
Family meeting held today with pt, pt's son Jose M, pt's stepdaughter Daniella, and this comic writer. With assistance and encouragment from this comic writer, pt was able to share some of his thoughts and emotions that he has been keeping inward. Pt's family offered acceptance and support. As a group, time was spent problem solving about pt's finances and the needs of pt's Apryl who has worsening dementia. Informed pt's family about referral to [facility] for Passport/Medicaid assessment. Informed pt's family about pt's appointment with the EMDR therapist. Discussed both of these topics in detail. This comic writer asked pt if he would divulge where the hidden gun is at. Pt was willing to do so and told his family specifically where it is in his garage. Daniella stated that she would have her uncle Zhao go to the garage and take the gun. Discussed ways in which pt could communicate about his feelings of desperation to his family prior to reaching the point of acting on his suicidal ideations. Jose M stated that he was going to ask pt directly and pt stated that he would always be truthful to Jose M. Pt was tearful at times and visibly anxious throughout the meeting. At the end, pt shared that he felt it was a good meeting but that he is emotionally exhausted.
--- NOTE | 2020-03-05 15:14 | NUR ---
Shift chart check completed.
--- NOTE | 2020-03-05 15:41 | NUR ---
GROUP A / FRANCINE PT ATTENDED GROUP THERAPY AND PARTICIPATED BY PLAYING FRANCINE. PT EXPRESSED NO SUICIDAL IDEATIONS WHILE IN GROUP.
--- NOTE | 2020-03-05 15:47 | NUR ---
GROUP B / BOYD PT DID NOT ATTEND GROUP THERAPY.PT WAS IN BED RESTING.
--- NOTE | 2020-03-05 16:20 | NUR ---
PATIENT IS ALERT AND ORIENTED TO PERSON, PLACE, TIME AND SITUATION;ABLE TO VOICE NEES. MOOD IS SLIGHTLY DEPRESSED AND ANXOUS. IMPROVEMENT NOTED. DENIES ANY HALLUCINATIONS, DELUSIONS, HI/SI OR PAIN. MEDICAITON COMPLAINT. Q 15 MINTUE SAFETY CHECKS. AMBULATORY WITH STEADY GAIT. INDEPENDENT WITH ACTIVITIES OF DAILY LIVING, CONTINENT OF BOWEL AND BLADDER. SET UP FOR MEALS, INTAKES ARE GOOD WITH ADEQUATE FLUIDS. INTERACTIVE WITH STAFF AND OTHER PATIENTS. PARTICIPATES IN GROUP SESSION. CONTINUE TO MONITTOR FOR SUICIDAL IDEATIONS, MOOD; PROVIDE ONE ON ONE FOR EMOTIONAL SUPPORT, ENCOURAGE GROUP PARTICIPATION, CONTRACT FOR SAFETY NEEDED.
[2020-03-05 19:25] VITALS: BP 134/81
--- NOTE | 2020-03-05 20:13 | NUR ---
24 HR chart check completed.
--- NOTE | 2020-03-05 22:48 | NUR ---
P-MILDLY DEPRESSED, MILD ANXIETY I-PROVIDE 1:1 FOR VENTILATION OF FEELINGS, ADMINISTER MEDS, MONITOR SLEEP R-PT STATED HE IS MILDLY DEPRESSED & ANXIETY HAS DECREASED AND HE IS FEELING BETTER. ALERT & ORIENTED X 4. PLEASANT INTERACTIONS WITH STAFF & PEERS. SAT & WATCHED A MOVIE THIS EVENING. REQUESTED & MEDICATED WITH TYLENOL PRN @ 2051 FOR C/O LOWER BACK PAIN. RATED PAIN 9/10 P-CONTINUE TO MONITOR
--- NOTE | 2020-03-06 05:11 | NUR ---
PT HAS SLEPT PAST 0 WITH 1 BRIEF AWAKENING TO GO TO THE BATHROOM
[2020-03-06 08:06] VITALS: BP 124/83
--- NOTE | 2020-03-06 10:02 | NUR ---
P- Depressed mood, anxiety I- Orientation, mood and behaviors assessed. Assessed pt for SI/HI, intent or plan. Assessed pt for s/s hallucinations, paranoia and/or delusions. Medications administered as per physician's orders. Assistance with ADL care provided as needed. Encouraged pt to attend and participate in turner milieu groups and activities. R- Pt is alert and oriented x4. Memory intact. Resps easy and even on room air. Mood depressed and anxious, affect broad range. Speech is WNL and coherent, able to make needs known without difficulty. Pt denies SI/HI, intent or plan. Pt contracts for safety, agrees to come to staff if suicidial thoughts reoccur. Pt denies hallucinations, no response to internal stimuli noted. No paranoia or delusions noted. Pt is medication compliant without difficulty. Pt denies pain/discomfort. Pt denies any skin changes, declines full head to toe skin assessment this date. Pt pleasant upon interactions with staff and peers, smiles and laughs appropriately. Pt is ambulatory with steady gait, independent with ADL care, good hygiene, good meal intakes and fluid intake. No distress noted. P- Plan to continue current treatment, continue to monitor mood and behaviors, provide appropriate reorientation, redirection and 1:1 as needed. Continue to encourage medication compliance as well as group attendance and participation.
--- NOTE | 2020-03-06 10:50 | NUR ---
on unit to see pt at this time.
--- NOTE | 2020-03-06 13:32 | NUR ---
Pt asked to speak to MHW, W then reported to this RN and 2nd RN that pt was very upset and asking to leave. This RN and 2nd RN went and talked with pt. Pt very visibly anxious, shaking, and upset. Pt using occasional profane language uncharacteristic of pt. Pt states "Look at me, I'm never like this. Being here just isn't helping anymore. I'm worse now than I was before". Pt voicing various frustrations with the unit milieu in regard to a male peer who frequently yells out, roommate who is up and down out of bed often making noise as well as frustrations with the use of telehealth. Pt hypersensitive at this time to what is going on around him. Empathized with pt and support provided, pt apologizes and voices appreciation for staff here. Offered to call and discuss pt's concerns with PMHNP, pt agrees. Offered to provide room change for pt, pt declines at this time. Pt requested "something to mellow me out" and a warm shower. Pt set up for shower by W as this RN phoned Chante PMHNP to discuss the above. Chante gave verbal order for Ativan 1mg PO q4h PRN anxiety, states to give one dose now. Also requested this RN speak with pt in regard to new order for Klonopin to start tonight to assist pt in dealing with situational stress both inpatient and after discharge with plan to discharge Monday. After pt finished showering this RN spoke with pt in regard to the conversation with AIRCRAFT DETAIL DRAFTSPERSON and pt is agreeable. Anxiety persists after shower although it has decreased, pt states "that took it down a few notches". PRN Ativan 1mg PO given at 1319. This RN again offered room move for pt, pt states "no, I'll just see how it goes now since I've had the Ativan, thank you". Pt then to dining room to watch TV. Will continue to monitor for medication effect.
--- NOTE | 2020-03-06 14:13 | NUR ---
Pt sitting in dining room socializing with female peer. Pt's anxiety seems to have settled. Pt came to nurse's station and smiled, states "I just want to tell you thank you for that pill. It really worked. I feel fantastic now". Ativan effective. Pt returned to dining room and is again socializing with female peer.
--- NOTE | 2020-03-06 18:18 | NUR ---
SHIFT CHART CHECK COMPLETED.
--- NOTE | 2020-03-06 19:39 | NUR ---
24 HR chart check completed.
[2020-03-06 19:48] VITALS: BP 117/69
--- NOTE | 2020-03-06 21:14 | NUR ---
P-MILDLY DEPRESSED, MILD ANXIETY I-PROVIDE 1:1 FOR VENTILATION OF FEELINGS, ADMINISTER MEDS, MONITOR SLEEP R-MILDLY DEPRESSED & ANXIETY HAS DECREASED. STATED THAT HE HAD A ROUGH DAY TODAY BUT IS FEELING BETTER. ALERT & ORIENTED X 4. PLEASANT INTERACTIONS WITH STAFF & PEERS. SAT & WATCHED A MOVIE THIS EVENING. P-CONTINUE TO MONITOR
--- NOTE | 2020-03-07 05:56 | NUR ---
PT HAS SLEPT PAST 2300
[2020-03-07 07:33] VITALS: BP 108/68
--- NOTE | 2020-03-07 17:56 | NUR ---
Patient resting quietly with no c/o discomfort. Respirations easy and regular. Vital signs stable. No overt distress. GIVENS,JAIRO
--- NOTE | 2020-03-07 19:22 | NUR ---
24 HR chart check completed.
[2020-03-07 19:32] VITALS: BP 112/73
--- NOTE | 2020-03-07 21:08 | NUR ---
SMILING AND INTERACTIVE WITH STAFF. HAS BEEN UP THIS SHIFT. SNACK PROVIDED BY STAFF. REVIEWED MEDICATIONS. STATES HE IS FEELING MUCH BETTER THAN YESTEREDAY. DENIES S/I AND CONTRACTS FOR SAFETY. CURRENTLY WATCHING MOVIE
--- NOTE | 2020-03-07 21:45 | NUR ---
ENJOYING FIREWORKS FROM THE WINDOW
--- NOTE | 2020-03-08 03:02 | NUR ---
24 HR chart check completed.
[2020-03-08 07:31] VITALS: BP 119/77
[2020-03-08] MEDS ORDERED: CLONAZEPAM1 MG PO (10:11)
[2020-03-08] MEDS ORDERED: MIRTAZAPINE15 M2 PO (10:11)
[2020-03-08] MEDS ORDERED: VITAMIN D3125 MC1 PO (10:11)
[2020-03-08] MEDS ORDERED: ZYPREXA2.5 MG PO (10:11)
[2020-03-08 19:45] VITALS: BP 131/60
--- NOTE | 2020-03-08 23:25 | NUR ---
P-DEPRESSED MOOD, ISOLATIVE, TEARFUL I-REDIRECTION WITH 1:1 THERAPEUTIC INTERVENTIONS AND COMMUNICATION. EDUCATE AND ENCOURAGE MEDICATION COMPLIANCE R-MEDICATION COMPLIANT AT HS. PATIENT PROVIDED NOURISHMENT AND FLUIDS AT HS. PATIENT WITH NO HALLUCINATIONS OR DELUSIONS. PATIENT WITH NO HOMICIDAL IDEATIONS AND DENIES SUICIDAL IDEATIONS, INTENT OR PLAN AT THIS TIME. PATIENT ISOLATIVE IN DINING AREA WITH LIMITED INTERACTION WITH PEERS. IT WAS REPORTED BY MENTAL HEALTH WORKER AT START OF SHIFT THAT PATIENT WAS TEARFUL AND ANXIOUS DUE TO BEING INFORMED ABOUT BEING DISCHARGED THE NEXT DAY. PATIENT VERBALIZING "I DON'T THINK I'M READY TO GO HOME". PATIENT VERBALIZED KNOW GUNS WERE REMOVED FROM HOME BUT "HAS CONCERNS". PATIENT VERBALIZED TO THIS NURSE "THERE ARE JUST A LOT OF THINGS OF CONCERNED WITH. I'M CONCERNED ABOUT MY , FINANCES, AND MANY OTHER THINGS". PATIENT TEARFUL AT TIMES DURING CONVERSATION. PATIENT STATED "I TALKED TO MY TODAY AND TOLD HER I MAY COME HOME TOMORROW BUT I WOULD LET HER KNOW FOR SURE". PATIENT ALSO VERBALIZED TO THIS NURSE "I DON'T THINK I'M READY, BUT I WOULD LIKE TO TALK TO YING TOMORROW BEFORE ANYTHING IS DECIDED ABOUT LEAVING". P-CONTINUE TO ENCOURAGE MEDICATION COMPLIANCE, ENCOURAGE GROUP THERAPY WHILE AWAKE
--- NOTE | 2020-03-09 05:19 | NUR ---
PATIENT SLEPT 6 HOURS OF INTERRUPTED SLEEP THROUGHOUT SHIFT. Q 15 MINUTE CHECKS MAINTAINED. 24 HR chart check completed.
[2020-03-09 07:38] VITALS: BP 112/67
--- NOTE | 2020-03-09 08:30 | NUR ---
Treatment Plan meeting was held this a.m. with Dr. Odonnell via telephone, DEON Garcia RN, AT, DIRECTOR OF DANCE-S and Computer Operations Specialist. Plan for discharge Monday with return home.
--- NOTE | 2020-03-09 12:00 | NUR ---
Shift chart check completed.
--- NOTE | 2020-03-09 13:00 | NUR ---
Patient refused head to toe skin assessment.
--- NOTE | 2020-03-09 14:31 | NUR ---
Met with pt individually this AM. Pt shared about his "meltdown" that he experienced on 03/06/20 and the events which led to it. Processed this with pt further. Pt voiced concern about the possibility of this happening when he is at home. Pt stated that the way he felt on Monday scared him. Discussed coping skills and ways in which pt can help himself should he begin to feel as he did Monday. Pt voiced a plan to take a walk or call his son. Discussed pt's apprehension in regards to his discharging tomorrow. Discussed this further. Pt stated that he has reconsidered and he would like to attend the [facility]. Also discussed the possiblity of a support group. After meeting with pt, phoned [facility] and learned that it remains closed due to COVID. Left a message for [place], peer support at [facility], requesting information for any support groups near patient. Await return call.
--- NOTE | 2020-03-09 18:07 | NUR ---
P- Anxious/Depressed mood. I- Assess mood, orientation, SI/HI, hallucinations, delusions or pain. Provide medications on time with education on each. 1:1 therapeutic interaction with emotional support and ventilation of feelings provided. Encourage to attend and participate in group therapies for emotional support and socialization. Educate on coping techniques and encourage to utilize when needed. R- Alert and oriented x4. Describres mood as anxious and depressed. Denies SI/HI, intnent or plan. Pt discussed how he feels that he let his emotions go out of control with dealing with his life stressors, leading him to the suicidal ideation he had. Pt remains anxious when going home and having to go back to dealing with these life stressors. Pt discussed coping techniques and contacts that he plans on utilizing so he does not have further suicidal ideation upon future discharge. Verbally contracts for safety while in the hospital. Medication compliant. Denies hallucinations, delusions or pain. No s/s of interacting with internal stimuli. No s/s of paranoid or delusional thought process. No s/s of distress noted, resps even and unlabored on room air. Voices needs and makes known. Ambulates with a steady gait without assistive devices. Eating and drinking adequately. Attending and participating in group activities. P- Assess mood, orientation, SI/HI, intent or plan, hallucinations, delusions or pain every shift. Plan is to continue current treatment plan. 1:1 interaction and encouragement of coping techniques provided when needed. Provide meds on time with education on each. Q15 minute checks maintained for safety.
--- NOTE | 2020-03-09 19:49 | NUR ---
24 HR chart check completed.
[2020-03-09 20:00] VITALS: BP 126/68
--- NOTE | 2020-03-09 21:49 | NUR ---
P-MILD ANXIETY I-PROVIDE 1:1 FOR VENTILATION OF FEELINGS, ADMINISTER MEDS, MONITOR SLEEP R-RATES ANXIETY 11/11. STATED HE IS BEING DISCHARGED TOMORROW AT 1:30PM. ASK PT HOW HE FELT ABOUT THAT & HE STATED, "I GOTTA GO SOMETIME. HAVE TO FACE REALITY". STATED HE IS FEELING BETTER & HAS BEEN SMILING & APPROPRIATE WITH STAFF & PEERS. ALERT & ORIENTED X 4. HAS MADE 2 PHONE CALLS THIS EVENING. COMPLIANT WITH MEDS. P-CONTINUE TO MONITOR
--- NOTE | 2020-03-10 04:52 | NUR ---
PT HAS SLEPT QUIETLY PAST 2300
[2020-03-10 07:36] VITALS: BP 111/78
--- NOTE | 2020-03-10 07:59 | NUR ---
DR. MONTERROSO NOTIFIED OF PATIENT BEING DISCHARGED TODAY.
--- NOTE | 2020-03-10 09:00 | NUR ---
Treatment Plan meeting was held this a.m. with DEON Garcia, RN, At, VISH-S and Bar Machine Operator. Plan for discharge today with return home. Follow up appointments have been arranged. Transportation provided by family with mushroom picker time 1:00 p.m.
--- NOTE | 2020-03-10 11:05 | NUR ---
Met with pt individually this AM. Discussed "action plan" for pt when he returns home today. Discussed the information that this engineering technical writer had received from the [facility] peer support. This engineering technical writer provided pt with a typed action plan which included, follow-up with counselor and [facility], possibility of support groups when reopened, possibility of [place] [facility] when reopened, possibility of Alzheimer's support group when reopened, possibility of attending [facility] group now meeting at the [facility] in [place], possibility of attending [facility] which is now meeting, [facility] referral to assess for needs of pt's , encouragement for pt to continue to confide in his son and stepdaughter, coping skills, and Crisis contact should pt find that he needs this. When asked what the first thing pt planned on doing when he returns home, pt stated, "Hug my for a long time." Pt was future-oriented voicing plans for appointments and spending time with his and son. Pt denies suicidal ideations and stated that he is feeling better than he has for awhile. After meeting with pt, received confirmations for pt's stepdaughter Daniella that her uncle Zhao had retrieved the gun from pt's garage. At this time, there are no known guns in pt's home or garage. needs this.
--- NOTE | 2020-03-10 12:00 | NUR ---
AM GROUP PT ATTENDED MORNING GROUP THERAPY AND PARTICIPATED IN ALL ACTIVITIES. PT EXPRESSED NO SUICIDAL IDEATIONS WHILE IN GROUP AND IS LOOKING FORWARD TO BEING DISCHARGED THIS AFTERNOON.
--- NOTE | 2020-03-11 09:22 | NUR ---
Patient discharged today to home with his . Follow-up was scheduled with [facility] for counseling with Graciela MCCRAY and psychiatry with Radha Rivera NP. While at [facility], pt's mood improved. Pt voiced that he no longer had suicidal ideations. He participated in group activity and individual counseling. Pt was pleasant, cooperative, and supportive of peers and staff.
== END 2020-03-10 12:50 | disposition home or self-care (01) | DRG 885 ==
LOC: 3N 20:50
PROVIDERS: Counselor Professional; ADMIT Psychiatry & Neurology Psychiatry
DX: F33.2 Major depressive disorder, recurrent severe without psychotic features (principal); R45.851 Suicidal ideations; E44.0 Moderate protein-calorie malnutrition; F43.10 Post-traumatic stress disorder, unspecified; F41.9 Anxiety disorder, unspecified; I10 Essential (primary) hypertension; E53.8 Deficiency of other specified B group vitamins; E55.9 Vitamin D deficiency, unspecified; M19.90 Unspecified osteoarthritis, unspecified site; R00.1 Bradycardia, unspecified; E66.3 Overweight; Z82.49 Family history of ischemic heart disease and other diseases of the circulatory system; Z68.26 Body mass index [BMI] 26.0-26.9, adult

== ENCOUNTER 2020-03-30 16:12 | Emergency (ER) | payer MEDICARE ==
[~2020-03-30] VITALS: Ht 175.2 cm; Wt 81.6 kg
[~2020-03-30 16:12] MED LIST changes: +CLONAZEPAM1 MG PO; +VITAMIN D3125 MC1 PO; +ZYPREXA2.5 MG PO
[2020-03-30 16:43] LABS: BASO # 0.1 10*3/uL (0.0-0.1); BASO % 1.1 % (0.0-1.0); EOS # 0.1 10*3/uL (0.0-0.4); EOS % 1.9 % (1.0-4.0); HEMATOCRIT 39.7 % (42.0-52.0); LYMPH % 35.7 % (27.0-41.0); MEAN CELL VOLUME 89.8 fl (80.0-94.0); MEAN CORPUSCULAR HGB 29.9 pg (27.0-31.0); MEAN CORPUSCULAR HGB CONC 33.2 g/dl (33.0-37.0); MONO # 0.5 10*3/uL (0.1-1.0); MONO % 9.3 % (3.0-9.0); NEUT % 51.8 % (47.0-73.0); PLATELET COUNT AUTOMATED 253 10*3/uL (130-400); RED BLOOD COUNT 4.42 10*6/uL (4.50-5.90); RED CELL DISTRI WIDTH 13.6 % (0-14.5); WHITE BLOOD COUNT 5.7 10*3/uL (4.8-10.8)
[2020-03-30 16:54] LABS: INTERNATIONAL NORM RATIO 1.1 (2.0-3.5)
[2020-03-30 16:58] LABS: ALBUMIN 3.2 gm/dl (3.1-4.5); ALKALINE PHOSPHATASE 98 U/L (45-117); BUN 13 mg/dl (7-24); CHLORIDE 112 mmol/L (98-107); CREATININE 1.15 mg/dL (0.70-1.30); POTASSIUM 3.8 mmol/L (3.5-5.1); SGOT/AST 12 IU/L (3-35); SGPT/ALT 16 U/L (12-78); SODIUM 144 mmol/L (136-145); TOTAL PROTEIN 6.9 gm/dL (6.4-8.2)
[2020-03-30 16:59] LABS: ETHYL ALCOHOL < 3.0 mg/dl (<3)
[2020-03-30 17:03] LABS: BILIRUBIN 1+ (NEGATIVE); BLOOD NEGATIVE (NEGATIVE); CLARITY CLEAR (CLEAR); COLOR YELLOW (YELLOW); GLUCOSE NEGATIVE (NEGATIVE); KETONE NEGATIVE (NEGATIVE); LEUKO ESTERASE NEGATIVE (NEGATIVE); NITRITE NEGATIVE (NEGATIVE)
[2020-03-30 17:04] LABS: URINE AMPHETAMINES < 1000 (1000ng/ml); URINE BARBITURATES < 200 (200ng/ml); URINE BENZODIAZEPINES > 200 (200ng/ml); URINE CANNABINOIDS (THC) < 50 (50ng/ml); URINE COCAINE < 300 (300ng/ml); URINE METHADONE < 300 (300ng/ml); URINE OPIATES < 300 (300ng/ml)
[2020-03-30 17:14] LABS: BACTERIA TRACE
[2020-03-30 17:15] LABS: MUCOUS 2+
[2020-03-30 17:22] LABS: URINE PHENCYCLIDINE < 25 (25ng/ml)
== END 2020-03-30 23:00 | disposition home health service (06) ==
LOC: ED 16:12
PROVIDERS: Emergency Medicine
DX: F32.9 Major depressive disorder, single episode, unspecified (principal); R45.851 Suicidal ideations; I10 Essential (primary) hypertension; Z79.899 Other long term (current) drug therapy; Z90.49 Acquired absence of other specified parts of digestive tract; Z20.828 Contact with and (suspected) exposure to other viral communicable diseases

== ENCOUNTER 2020-03-30 21:52 | Inpatient (IN) | payer MEDICARE ==
[~2020-03-30] VITALS: Ht 175.2 cm; Wt 75.9 kg
[2020-03-30 23:05] VITALS: BP 138/72
[2020-03-31 07:22] LABS: THYROID STIM HORMONE (HS) 1.27 uIU/ml (0.358-4.75)
[2020-03-31 08:00] VITALS: BP 127/73
[2020-03-31 13:21] LABS: VITAMIN D, 25-HYDROXY 74.3 ng/mL (30-100)
[2020-03-31 20:00] VITALS: BP 131/66
[2020-04-01 07:44] VITALS: BP 112/73
[2020-04-01 19:28] VITALS: BP 111/68
[2020-04-02 07:47] VITALS: BP 128/78
[2020-04-02 19:45] VITALS: BP 123/56
[2020-04-03 07:29] VITALS: BP 114/56
[2020-04-03 19:42] VITALS: BP 112/61
[2020-04-04 07:48] VITALS: BP 112/62
[2020-04-04 20:00] VITALS: BP 115/63
[2020-04-05 08:00] VITALS: BP 112/63
[2020-04-05 20:00] VITALS: BP 135/82
[2020-04-06 07:57] VITALS: BP 119/68
[2020-04-06 20:00] VITALS: BP 136/78
[2020-04-07 07:40] VITALS: BP 126/68
[2020-04-07 19:21] VITALS: BP 128/66
[2020-04-08 08:00] VITALS: BP 129/73
[2020-04-08 19:52] VITALS: BP 150/68
[2020-04-09 07:29] VITALS: BP 126/68
[2020-04-09] MEDS ORDERED: PRISTIQ50 MG PO (09:20)
[2020-04-09] MEDS ORDERED: OLANZAPINE5 MG PO (09:20)
== END 2020-04-09 12:57 | disposition home or self-care (01) | DRG 885 ==
LOC: 3N 21:52
PROVIDERS: ADMIT Psychiatry & Neurology Psychiatry
DX: F33.2 Major depressive disorder, recurrent severe without psychotic features (principal); R45.851 Suicidal ideations; I10 Essential (primary) hypertension; D64.9 Anemia, unspecified; M19.90 Unspecified osteoarthritis, unspecified site; F41.9 Anxiety disorder, unspecified; E87.8 Other disorders of electrolyte and fluid balance, not elsewhere classified; E53.8 Deficiency of other specified B group vitamins; E55.9 Vitamin D deficiency, unspecified; Z82.49 Family history of ischemic heart disease and other diseases of the circulatory system; Z90.49 Acquired absence of other specified parts of digestive tract; Z79.899 Other long term (current) drug therapy

== ENCOUNTER 2020-06-04 14:47 | Inpatient (IN) | payer MEDICARE ==
[~2020-06-04] VITALS: Ht 175.2 cm; Wt 81.6 kg
[~2020-06-04 14:47] MED LIST changes: +PRISTIQ50 MG PO
[2020-06-04] MEDS ORDERED: PRISTIQ100 MG PO (15:16)
[2020-06-04] MEDS ORDERED: TRILEPTAL150 MG PO (15:19)
[2020-06-04 15:39] VITALS: BP 185/87
[2020-06-04 15:52] VITALS: BP 185/87
[2020-06-04 19:58] VITALS: BP 182/78
[2020-06-05 06:27] LABS: BASO # 0.1 10*3/uL (0.0-0.1); BASO % 0.9 % (0.0-1.0); EOS # 0.1 10*3/uL (0.0-0.4); EOS % 1.4 % (1.0-4.0); HEMATOCRIT 43.7 % (42.0-52.0); LYMPH % 35.5 % (27.0-41.0); MEAN CELL VOLUME 91.4 fl (80.0-94.0); MEAN CORPUSCULAR HGB 30.5 pg (27.0-31.0); MEAN CORPUSCULAR HGB CONC 33.4 g/dl (33.0-37.0); MEAN PLATELET VOLUME 10.1 fl (9.6-12.3); MONO # 0.5 10*3/uL (0.1-1.0); MONO % 9.6 % (3.0-9.0); NEUT # 2.9 10*3/uL (2.3-7.9); NEUT % 52.4 % (47.0-73.0); PLATELET COUNT AUTOMATED 225 10*3/uL (130-400); RED BLOOD COUNT 4.78 10*6/uL (4.50-5.90); RED CELL DISTRI WIDTH 12.7 % (0-14.5); WHITE BLOOD COUNT 5.6 10*3/uL (4.8-10.8)
[2020-06-05 06:59] LABS: ALBUMIN 3.2 gm/dl (3.1-4.5); ALKALINE PHOSPHATASE 107 U/L (45-117); BUN 9 mg/dl (7-24); CHLORIDE 109 mmol/L (98-107); CHOLESTEROL 193 mg/dL (<200); HDL CHOLESTEROL 31 mg/dl (40-60); LDL CHOLESTEROL 136 mg/dL (9-159); POTASSIUM 4.2 mmol/L (3.5-5.1); SGOT/AST 16 IU/L (3-35); SGPT/ALT 18 U/L (12-78); SODIUM 139 mmol/L (136-145); TOTAL PROTEIN 6.7 gm/dL (6.4-8.2); TRIGLYCERIDES 129 mg/dl (<150); VLDL CHOLESTEROL 26 mg/dL (6-40)
[2020-06-05 07:39] VITALS: BP 147/77
[2020-06-05 20:00] VITALS: BP 150/67
[2020-06-06 07:59] VITALS: BP 118/67
[2020-06-06 20:00] VITALS: BP 118/69
[2020-06-07 07:41] VITALS: BP 105/66
[2020-06-07 20:00] VITALS: BP 118/58
[2020-06-08 07:29] VITALS: BP 111/63
[2020-06-08 19:43] VITALS: BP 124/79
[2020-06-09 07:50] VITALS: BP 120/80
[2020-06-09 19:46] VITALS: BP 129/82
[2020-06-10 07:40] VITALS: BP 113/77
[2020-06-10 19:15] VITALS: BP 132/65
[2020-06-11 07:50] VITALS: BP 107/78
[2020-06-11 19:08] VITALS: BP 147/88
[2020-06-12 07:31] VITALS: BP 128/84
[2020-06-12] MEDS ORDERED: OLANZAPINE5 MG PO (10:05)
[2020-06-12] MEDS ORDERED: IMIPRAMINE HCL50 MG PO (10:05)
[2020-06-12] MEDS ORDERED: PRISTIQ100 MG PO (10:05)
== END 2020-06-12 13:33 | disposition home or self-care (01) | DRG 885 ==
LOC: 3N 14:47
PROVIDERS: ADMIT Psychiatry & Neurology Psychiatry; ATTEND Psychiatry & Neurology Psychiatry
DX: F33.2 Major depressive disorder, recurrent severe without psychotic features (principal); R45.851 Suicidal ideations; E53.8 Deficiency of other specified B group vitamins; E78.5 Hyperlipidemia, unspecified; D64.9 Anemia, unspecified; Z20.828 Contact with and (suspected) exposure to other viral communicable diseases; I25.10 Atherosclerotic heart disease of native coronary artery without angina pectoris; I10 Essential (primary) hypertension; F41.9 Anxiety disorder, unspecified; M19.90 Unspecified osteoarthritis, unspecified site; R00.1 Bradycardia, unspecified; E66.3 Overweight; E55.9 Vitamin D deficiency, unspecified; F34.1 Dysthymic disorder; Z90.49 Acquired absence of other specified parts of digestive tract; Z82.49 Family history of ischemic heart disease and other diseases of the circulatory system; Z88.8 Allergy status to other drugs, medicaments and biological substances; Z79.899 Other long term (current) drug therapy; Z68.27 Body mass index [BMI] 27.0-27.9, adult